=== PATIENT | female | born 1970 | race Caucasian/White ===

== ENCOUNTER → 2016-12-03 | Day surgery (SDC) | payer OTHER ==
[~2016-12-03] MED LIST: ALPR2TAB2 PO; IV RINGERS,LACTATED 1000ML 1,000 ML IV ONE; LIDOCAINE 2% PF Vial for OR 5 ML VIAL. ONE; OXCA150T3 PO; PANT40TA3 PO; PROPOFOL 20 ML IV ONE; PROPOFOL 60 ML IV ONE; ZOLP10TA PO
[2016-12-03 09:38] LABS: NEG OBC UR NEG; POS OBC UR POS
[2016-12-03 11:00] VITALS: BP 135/68
--- NOTE | 2016-12-04 12:47 | CONS ---
DATE OF CONSULTATION: 12/03/2016 HISTORY OF PRESENT ILLNESS: A 46-year-old female with past medical history significant for hepatitis C as well as chronic heartburn and a history of colonic polyps with her parents, is seen for worsening heartburn and dysphagia, solids stuck in substernal location. She is also noted to have some change in bowel habits with alternating diarrhea and constipation. There has been no melena and no hematochezia. Weight and appetite have been stable. Family history is positive for colon polyps with both parents. PAST MEDICAL HISTORY: Significant for reflux, anxiety, COPD, hepatitis C. ALLERGIES: ASPIRIN. MEDICATIONS: Include Xanax, Trileptal, Protonix, and Ambien. PAST SURGICAL HISTORY: She has had breast surgery. FAMILY HISTORY: Significant for colon polyps with her parents. REVIEW OF SYSTEMS: As per old records. PHYSICAL EXAMINATION: GENERAL: Reveals a well-nourished, well-developed female. VITAL SIGNS: Temperature is 97.8, pulse is 82, respiratory rate 22. HEENT: Normocephalic and atraumatic. Pupils and extraocular muscles not tested. Sclerae anicteric. NECK: Supple. LUNGS: Clear. CARDIOVASCULAR: Reveals S1, S2 without S3, S4 or appreciable murmur. ABDOMEN: Reveals a soft abdomen, normal bowel sounds without appreciable hepatosplenomegaly. EXTREMITIES: Reveal no cyanosis, clubbing or edema. IMPRESSION: 1. Heartburn with dysphagia. Differential includes malignancy, Schatzki's ring, achalasia, Barclay's without a stricture; therefore, we recommended upper endoscopy, possible biopsy and dilatation. 2. History of colon polyps. Colorectal screening is warranted at this time. Risks and benefits have been discussed previously with the patient and she is willing to proceed. DMITRY MARTINEZ MD DR: MERLYN/luis m JOB#: [id number] / [id number]
--- NOTE | 2016-12-06 13:47 | PATHOLOGY ---
PATHOLOGY REPORT * * * * * * * * FINAL DIAGNOSIS: Esophagus, distal, biopsy: - Superficial portions of unremarkable squamous epithelium. - No columnar epithelium present. (SKM:savannah; 12/06/2016) REPORT ELECTRONICALLY SIGNED BY: Fabian Jerez M.D. DATE/TIME: 12/06/2016 13:47 * * * * * * * * GROSS PATHOLOGY: Received in formalin labeled "Chica Ballard distal esophagus," are 3 segments of byrne soft tissue measuring 1.3 x 0.5 x 0.4 cm in aggregate dimensions and ranging from 0.3 to 0.5 cm in maximum dimension. The specimen is submitted entirely in cassette A1. (TSD; 12/03/2016) INITIAL CPT CODE(S): A; 56642 Professional services performed [place] [address] Technical services performed by [facility] at [address] [place] [address]. SPECIMEN(S) RECEIVED: A.Distal esophagus CLINICAL HISTORY: GERD, history of polyps; reflux esophagitis, r/o Barclay's PATIENT: CHICA BALLARD /AGE: 4 1970 (Age: 46) PATIENT #: [id number] ALT CASE #: SPECIMEN COLLECTION DATE: 12/03/2016 SPECIMEN RECEIVED DATE: 12/03/2016 [facility] - [address] [place] [address] - PHONE: [phone] * * * END OF REPORT * * *
== END | disposition home or self-care (01) ==
LOC: ENDOS 09:00
PROVIDERS: ATTEND Internal Medicine Gastroenterology
DX: Z09 Encounter for follow-up examination after completed treatment for conditions other than malignant neoplasm (principal); Z86.010 Personal history of colon polyps; K64.0 First degree hemorrhoids; K57.30 Diverticulosis of large intestine without perforation or abscess without bleeding; K22.2 Esophageal obstruction; K21.0 Gastro-esophageal reflux disease with esophagitis; J44.9 Chronic obstructive pulmonary disease, unspecified; M19.91 Primary osteoarthritis, unspecified site; F41.9 Anxiety disorder, unspecified; I10 Essential (primary) hypertension; Z87.39 Personal history of other diseases of the musculoskeletal system and connective tissue; Z72.0 Tobacco use; Z88.6 Allergy status to analgesic agent
CPT/HCPCS: 43239; 43450; 45378; 81025; 88305; J2704; J2001

== ENCOUNTER → 2017-02-09 | Outpatient (CLI) | payer OTHER ==
[2016-12-03 11:00] VITALS: BP 135/68
[~2017-02-09] MED LIST changes: -IV RINGERS,LACTATED 1000ML 1,000 ML IV ONE; -LIDOCAINE 2% PF Vial for OR 5 ML VIAL. ONE; -PROPOFOL 20 ML IV ONE; -PROPOFOL 60 ML IV ONE
--- NOTE | 2017-02-09 15:38 | KCIC ---
MRI of the cervical spine without contrast 02/09/2017 CLINICAL HISTORY: Chronic neck pain which radiates down both arms. Bilateral arm numbness. TECHNIQUE: Unenhanced T1-weighted, T2-weighted and inversion recovery sagittal and gradient echo and T2-weighted axial images of the cervical spine were obtained. FINDINGS: Very mild lateral curvature of the cervical spine is seen convex to the left. There is slight reversal of the normal cervical lordosis. Degenerative signal changes are seen involving all of the disks of the cervical spine. Degenerative signal changes are seen within the marrow surrounding these discs. Loss of height of the C3-4 and C5-6 discs is noted. The cervical spinal cord is normal morphology, position, and signal characteristics. On the axial images degenerative changes are seen consisting of minimal to mild generalized disc bulges and degenerative changes involving the uncovertebral and facet joints. These findings do not result in significant central spinal canal or neural foraminal stenosis at any level. IMPRESSION: Degenerative changes are seen involving the cervical spine. These findings do not result in significant central spinal canal or neural foraminal stenosis at any level. Electronically signed by: Kyler Carrillo MD (02/09/2017 3:35 PM) [facility]-KCIC1
== END | disposition home or self-care (01) ==
LOC: KCIC MRI 13:01
PROVIDERS: ATTEND Nurse Practitioner Gerontology
DX: M50.30 Other cervical disc degeneration, unspecified cervical region (principal); M40.40 Postural lordosis, site unspecified
CPT/HCPCS: 72141

== ENCOUNTER → 2017-02-09 | Outpatient (CLI) | payer OTHER ==
[2016-12-03 11:00] VITALS: BP 135/68
--- NOTE | 2017-02-09 15:08 | KCIC ---
DATE: 02/09/2017 EXAM: MAMMO BRITTNY SCREENING BILATERAL HISTORY: Routine screening COMPARISON: None available this is dictated as a baseline exam This study was interpreted with the benefit of Computerized Aided Detection (CAD). FINDINGS: Breast Density: HETERO The breast parenchyma Is heterogeneouslyy dense, which could reduce sensitivity of mammography. Breast parenchyma level C. There are no dominant suspicious masses, suspicious microcalcifications or evidence of architectural distortion. Bilateral breast prosthesis appear intact. Bilateral intramammary lymph node identified. Prior right breast breast biopsy clip marker identified. IMPRESSION: Benign findings. BI-RADS CATEGORY: 2 BENIGN FINDING RECOMMENDED FOLLOW-UP: 12M 12 MONTH FOLLOW-UP PQRS compliance statement: Patient information was entered into a reminder system with a target due date 02/09/2018 for the next mammogram. Mammography is a sensitive method for finding small breast cancers, but it does not detect them all and is not a substitute for careful clinical examination. A negative mammogram does not negate a clinically suspicious finding and should not result in delay in biopsying a clinically suspicious abnormality. "Our facility is accredited by the [employer] Mammography Program."
== END | disposition home or self-care (01) ==
LOC: KCIC MAMMO 13:48
PROVIDERS: ATTEND Family Medicine
DX: Z12.31 Encounter for screening mammogram for malignant neoplasm of breast (principal)
CPT/HCPCS: 77063; G0202; 77067

== ENCOUNTER → 2017-04-07 | Outpatient (CLI) | payer OTHER | END | disposition home or self-care (01) | LOC: US 09:57 | DX: E04.1 Nontoxic single thyroid nodule (principal) | CPT/HCPCS: 76536 ==

== ENCOUNTER 2018-07-03 13:08 | Emergency (ER) | payer OTHER ==
[~2018-07-03] VITALS: Ht 162.6 cm; Wt 82.6 kg
[2018-07-03] MEDS ORDERED: HYDROcodone/APAP 5/325MG 1 TAB TABLET PO ONE (14:00)
[2018-07-03 14:04] VITALS: BP 176/92
[2018-07-03] MEDS ORDERED: ONDANSETRON ODT 4 MG TAB.RAPDIS. PO ONE (14:15)
--- NOTE | 2018-07-03 14:17 | RAD ---
PA view chest x-ray and 4 view right rib detail series INDICATIONS: Fall 3 days ago with right-sided rib pain. FINDINGS: No acute right rib fracture is evident. No acute lung infiltrate or pleural effusion or pulmonary edema or pneumothorax is seen. The heart size and pulmonary vasculature and mediastinum and both chani are unremarkable. IMPRESSION: No acute right rib fracture. Electronically signed by: Darrion Villalba MD (07/03/2018 2:13 PM) [id number]
[2018-07-03] MEDS ORDERED: HYDR-3164 PO (14:34)
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
== END 2018-07-03 15:01 | disposition home or self-care (01) ==
LOC: ER 13:08
DX: S20.211A Contusion of right front wall of thorax, initial encounter (principal); Z88.6 Allergy status to analgesic agent; W18.39XA Other fall on same level, initial encounter; Y93.89 Activity, other specified; Y92.89 Other specified places as the place of occurrence of the external cause; Y99.8 Other external cause status
CPT/HCPCS: 71101; 99284; Q0162

== ENCOUNTER → 2018-08-29 | Outpatient (CLI) | payer OTHER ==
[~2018-08-29] MED LIST changes: +ALPR0.254 PO; +ATOR20TA58 PO; +BUDE10.2 IH; +DIVA500T2 PO; +ESTR1TAB15 PO; +ESZO3TAB28 PO; +HYDR-2769 PO; +HYDR-3164 PO; +LANS30CA PO; +LIDOCAINE 1% Multi-Dose 20 ML VIAL. ID ONE; -PANT40TA3 PO; +PANT40TA77 PO; +TIOT18CA IH; +VENTOLIN HFA18 GM INH; +methylPREDNISolone ACETATE 40 MG/ML VIAL. INT ART ONE
--- NOTE | 2018-08-29 16:52 | KCIC ---
Examination: Bilateral first carpometacarpal joint steroid injection History: Bilateral thumb pain COMPARISON: None available Technique:. Patient was brought to fluoroscopy suite. Patient was explained the procedure. Informed consent was obtained after explaining the risks and benefits to the patient. The region was marked. Local anesthesia was used 1% lidocaine. A 25-gauge needle was advanced into the carpometacarpal joint under fluoroscopic guidance. A 1 cc mixture of 0.5 cc of Depo-Medrol and 0.5 cc of lidocaine was injected in the bilateral first carpometacarpal joints. The needle was removed. No immediate complications. IMPRESSION: 1. Successful bilateral carpometacarpal joint injections. Patient stated significant improvement in pain after injections. Right hand 82 seconds of fluoroscopy. Left hand 45 seconds of fluoroscopy. Electronically signed by: Valdemar Daniels MD (08/29/2018 4:49 PM) [facility]-KCIC2
== END ==
LOC: KCIC 12:12
PROVIDERS: ATTEND Orthopaedic Surgery Sports Medicine
DX: M79.645 Pain in left finger(s) (principal); M79.644 Pain in right finger(s)
CPT/HCPCS: 20600; 77002; J1030; 20605

== ENCOUNTER → 2018-09-05 | Outpatient (CLI) | payer OTHER ==
[~2018-09-05] MED LIST changes: -LIDOCAINE 1% Multi-Dose 20 ML VIAL. ID ONE; -methylPREDNISolone ACETATE 40 MG/ML VIAL. INT ART ONE
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
== END | disposition home or self-care (01) ==
LOC: PNCL 10:39
PROVIDERS: ATTEND Anesthesiology
DX: M54.5 Low back pain (principal); M79.605 Pain in left leg; M79.604 Pain in right leg; M54.2 Cervicalgia; J44.9 Chronic obstructive pulmonary disease, unspecified; M19.90 Unspecified osteoarthritis, unspecified site; Z88.8 Allergy status to other drugs, medicaments and biological substances; Z87.891 Personal history of nicotine dependence
CPT/HCPCS: G0463

== ENCOUNTER → 2018-09-27 | Outpatient (CLI) | payer OTHER ==
[~2018-09-27] MED LIST changes: +IOHEXOL 180 MG/ML 10 ML VIAL. ONE; +methylPREDNISolone ACETATE 40 MG/ML VIAL. ONE; +methylPREDNISolone ACETATE 80 MG/ML VIAL. ONE
--- NOTE | 2018-09-28 07:24 | PAIN ---
DATE OF SERVICE: 09/27/2018 PROGRESS NOTE FOR PAIN CLINIC DIAGNOSES: 1. Lumbar radiculopathy with lumbar degenerative disk disease. 2. Cervical radiculopathy with cervical degenerative disk disease. HISTORY OF PRESENT ILLNESS: The patient is a 48-year-old female who returns for followup status post initial evaluation and MRIs of both the cervical and lumbar spines. The patient's cervical spine showing cervical bulges without spinal stenosis or nerve root compression with most significant at C5-C6 with a slight encroachment upon the right neural foramen. Lumbar spine shows left L4-L5 neural foramen narrowing in the effect of left L4 nerve root, less severe neural foramen narrowing is seen at the levels with osteoarthritis in the facets at L4-L5 and L5-S1, lesser extent at L3-L4. The patient returns reporting still significant pain, base of the neck, right upper extremity as well as the low back and right lower extremity, mostly in the posterior gluteus, posterior thigh, lateral thigh on the right and into the shoulder and arm, upper arm, mid arm, forearm and into the thumb and first fingers on the right hand. The patient reports her main complaint is low back and the right leg pain as aching, sharp, stabbing, becoming more constant and severe, worse with walking, standing, changing positions. The right arm and upper extremities still painful, but less limiting in her daily activities than the low back. The patient reports it awakens her from sleep at least 2-3 times a night. She needs to reposition to get back to sleep. It has been rated as a 10 on a scale of 10 at its worst over the past week, 9 on average, it is a 9 today. The patient reports no new motor or sensory deficits. No new bowel or bladder incontinence or other complaints. PHYSICAL EXAMINATION: VITAL SIGNS: The patient's blood pressure 150/96, pulse 84, respirations 18, temperature is 98.2 degrees Fahrenheit, height is 5 feet 4 inches, weight is 233 pounds. GENERAL: The patient is awake, alert, oriented, appropriate, very pleasant demeanor. HEENT: Head shows normocephalic, atraumatic. Extraocular movements are intact and symmetrical. Oral cavity, mucous membranes are moist and pink. Dentition is intact. NECK: Shows anterior throat supple without palpable lymphadenopathy noted. Swallow reflex symmetrical. CHEST: Shows normal with inspection. Breath sounds clear to auscultation bilaterally. HEART: Shows S1, S2 clear. No murmurs auscultated. ABDOMEN: Soft, nontender, nondistended. No palpable organomegaly is noted. BACK: Shows spine grossly in the midline. Cervical paraspinous muscle shows symmetrical on inspection, with palpation some moderate tenderness diffusely in the right superior trapezius and inferior cervical paraspinous musculature. The patient has full rotational motion of the cervical spine without significant difficulty. The patient's low back shows lumbar paraspinous muscles are symmetrical, with palpation shows some moderate tenderness diffusely bilaterally, but only diffusely without significant radiation. The patient has good rotational motion both laterally as well as extension and flexion. EXTREMITIES: Lower extremities show deep tendon reflexes at 1+ in the patellar and tendo-calcaneus tendons. Motor exam is approximately 4 on a scale of 5, but equal and symmetrical bilaterally. Upper extremities show deep tendon reflexes 2+ in the biceps, triceps tendons. 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 Peripheral pulses are 1+ posterior tibial, 2+ radial. No peripheral edema is noted in any of the extremities. Options were discussed with the patient. The patient's old chart was reviewed. Her current medication regimen updated. Current review of systems is updated today as well. We will proceed with a lumbar epidural steroid injection today with fluoroscopic guidance. Risks were again discussed including, but not limited to bleeding, infection, possibility of epidural hematoma, subsequent neurologic compromise, dural puncture, headaches, spinal cord and/or nerve damage, side effects of steroid medication and poor results regarding pain control. The patient understands and wished to proceed. The patient will return to clinic in approximately 2 weeks for followup, was counseled on return appointment, activity level and side effects to be aware of. DIAGNOSIS: Lumbar radiculopathy with lumbar degenerative disk disease. PROCEDURE: Lumbar epidural steroid injection, translaminar approach at the L4-L5 level using C-arm fluoroscopic guidance under sterile prep and drape using local anesthetic. MEDICATION INJECTED: A total of 120 mg Depo-Medrol plus 10 mL of preservative-free normal saline and 2 mL of contrast. CONDITION AT DISCHARGE: Stable. The patient tolerated the procedure well, had no complications. GINO CACERES MD DR: FRANKLIN/luis m JOB#: [id number] / [id number]
== END ==
LOC: PNCL 14:39
PROVIDERS: ATTEND Anesthesiology
DX: M51.16 Intervertebral disc disorders with radiculopathy, lumbar region (principal); M50.10 Cervical disc disorder with radiculopathy, unspecified cervical region
CPT/HCPCS: 62323; J1030; J1040; Q9965

== ENCOUNTER → 2018-10-16 | Outpatient (CLI) | payer OTHER ==
--- NOTE | 2018-10-17 04:14 | PAIN ---
DATE OF SERVICE: 10/16/2018 PROGRESS NOTE FOR PAIN CLINIC DIAGNOSES: 1. Lumbar radiculopathy with lumbar degenerative disk disease. 2. Cervical radiculopathy with cervical degenerative disk disease. HISTORY OF PRESENT ILLNESS: The patient is a 48-year-old female who returns for followup status post lumbar epidural steroid injection x 1. The patient reports about 50% improvement in her low back and leg pain. Her main complaint now is neck and shoulder pain, upper back pain as well, more on the right arm. The patient reports there is tingling in the right arm with radiating pain rated at 10 on a scale of 10 at its worst, 8 on an average, 7 at its least and is a 7 today. The patient reports it is an aching pain and sharp and tingling, becoming more constant and, more severe. Her low back is doing much better. She has been increasing her activities with greater distance walking, doing household activities with greater ease and comfort, traveling with greater ease, but her upper back and neck is becoming more painful. The patient reports no new motor or sensory deficits, no new bowel or bladder incontinence or other complaints. Also, complains of some knee pain. She does have some new MRI scans of both of her knees and we reviewed with her today as well. PHYSICAL EXAMINATION: VITAL SIGNS: The patient's blood pressure is 143/103, pulse 80, respirations 16, temperature 98.5 degrees Fahrenheit and weight is 231 pounds. GENERAL: The patient is awake, alert, oriented, appropriate, very pleasant demeanor. HEENT: Shows normocephalic, atraumatic. Extraocular movements are intact and symmetrical. Oral cavity: Mucous membranes moist and pink. Dentition is intact. NECK: Shows anterior throat supple without palpable lymphadenopathy noted. Swallow reflex symmetrical. CHEST: Shows normal on inspection. Breath sounds are clear to auscultation bilaterally. HEART: Shows S1, S2 clear. No murmurs auscultated. ABDOMEN: Soft, nontender and nondistended. No palpable organomegaly is noted. No rebound or guarding demonstrated. BACK: Shows spine grossly in the midline. Normal appearing thoracic kyphosis, some minor flattening of cervical lordotic curvature and lumbar lordotic curvature. Cervical paraspinous muscle shows symmetrical on inspection, on palpation shows some moderate tenderness diffusely bilaterally, but only diffusely without radiation. The patient's neck shows good rotational motion of cervical spine, both laterally as well as extension and flexion without significant increase in pain. EXTREMITIES: Upper extremities showed deep tendon reflexes 2+ in the biceps and triceps tendons. Motor exam is approximately 4 on a scale of 5 with equal wedger machine strength of biceps and triceps flexion. Peripheral pulses are 2+, radial distribution. No peripheral edema is noted. Options were discussed with the patient. The patient's old chart was reviewed as her current medication regimen updated. Current review of systems updated today as well. We will proceed with a cervical epidural steroid injection today with fluoroscopic guidance. Risks were again discussed including but not limited to bleeding, infection, possibility of epidural hematoma, subsequent neurologic compromise, dural puncture, headaches, spinal cord and/or nerve damage, side effects of steroid medication and poor results regarding pain control. The patient understands and wished to proceed. She will return to clinic in approximately 2 weeks for followup, was counseled on return appointment, activity level and side effects to be aware of. DIAGNOSIS: Cervical radiculopathy with cervical degenerative disk disease. PROCEDURE: Cervical epidural steroid injection, translaminar approach, C6-C7 level, using C-arm fluoroscopic guidance under sterile prep and drape using local anesthetic. MEDICATION INJECTED: A total of 120 mg of Depo-Medrol plus 5 mL of preservative-free normal saline and 2 mL of contrast. CONDITION AT DISCHARGE: Stable. The patient tolerated the procedure well, had no complications. GINO CACERES MD DR: FRANKLIN/luis m JOB#: [id number] / [id number]
== END ==
LOC: PNCL 13:23
PROVIDERS: ATTEND Anesthesiology
DX: M50.123 Cervical disc disorder at C6-C7 level with radiculopathy (principal); M51.16 Intervertebral disc disorders with radiculopathy, lumbar region
CPT/HCPCS: 62321; J1030; J1040; Q9965

== ENCOUNTER → 2018-11-02 | Outpatient (CLI) | payer OTHER ==
--- NOTE | 2018-11-03 00:56 | PAIN ---
DATE OF SERVICE: 11/02/2018 PROGRESS NOTE FOR PAIN CLINIC DIAGNOSES: 1. Lumbar radiculopathy with lumbar degenerative disk disease. 2. Cervical with radiculopathy with cervical degenerative disk disease. HISTORY OF PRESENT ILLNESS: The patient is a 48-year-old female who returns for followup status post cervical epidural steroid injection x 1 and lumbar epidural steroid injection x 1. The patient reports about 50% improvement after lumbar injection, but no improvement after cervical injection. The patient reports still significant pain and her chief complaint is her low back pain today, which is radiating to bilateral posterior lateral gluteus, lateral thighs, lateral anterior medial thighs and the knees. The patient reports it is aching, sharp, shooting, cramping, stabbing, radiating, becoming more constant, more severe and more unbearable. The patient reports it is a 10 on a scale of 10 at its worst, 10 on average and 9 at its least and is a 10 today. The patient reports no new motor or sensory deficits, no new bowel or bladder incontinence or other complaints. The patient reports it awakens him from sleep about every 1-2 hours, has to reposition. She has been taking the pain medication as well. The patient reports no new motor or sensory deficits, no bowel or bladder incontinence or other complaints. PHYSICAL EXAMINATION: VITAL SIGNS: The patient's blood pressure 140/97, pulse 90, respirations 18, temperature 98.4 degrees Fahrenheit, height is 5 feet 4 inches, weight is 237 pounds. GENERAL: The patient is awake, alert, oriented, appropriate, very pleasant demeanor. HEENT: Shows normocephalic, atraumatic. Extraocular movements are intact and symmetrical. Oral cavity: Mucous membranes moist and pink. Dentition is intact. NECK: Shows anterior throat supple without palpable lymphadenopathy noted. Swallow reflex symmetrical. CHEST: Shows normal on inspection. Breath sounds clear to auscultation bilaterally. HEART: Shows S1, S2 clear. No murmurs auscultated. ABDOMEN: Soft, nontender, nondistended. No palpable organomegaly is noted. No rebound or guarding demonstrated. BACK: Shows spine grossly in the midline. The patient's lumbar paraspinous muscle shows symmetrical on inspection, on palpation shows some moderate tenderness diffusely in the middle and lower distribution of paraspinous muscles, also into the lower thoracic paraspinous musculature with fairly significant tenderness bilaterally. The patient shows some tenderness with rotational motion both laterally as well as extension and flexion in all rotations. EXTREMITIES: The patient's lower extremities show deep tendon reflexes at 2+ in the patellar, 1+ tendo-calcaneus tendons. Motor exam is approximately 4 on a scale of 5, but equal and symmetrical dorsiflexion, extension, quadriceps and hamstring flexion. Options were discussed with the patient. The patient's old chart was reviewed as her current medication regimen updated. Current review of systems updated today as well. We will proceed with a second lumbar epidural steroid injection today with fluoroscopic guidance. Risks were again discussed including, but not limited to bleeding, infection, possibility of epidural hematoma, subsequent neurological compromise, dural puncture, headaches, spinal cord and/or nerve damage, side effects of steroid medication and poor results regarding pain control. The patient understands and wished to proceed. The patient will return to clinic in approximately 2 weeks for followup. She was counseled on return appointment, activity level and side effects to be aware of. DIAGNOSIS: Lumbar radiculopathy with lumbar degenerative disk disease. PROCEDURE: Lumbar epidural steroid injection, translaminar approach at L4-L5 level using C-arm fluoroscopic guidance under sterile prep and drape using local anesthetic. MEDICATION INJECTED: The patient received a total of 120 mg Depo-Medrol plus 10 mL of preservative-free normal saline and 2 mL of contrast. CONDITION AT DISCHARGE: Stable. The patient tolerated the procedure well, had no complications. GINO CACERES MD DR: FRANKLIN/luis m JOB#: [id number] / [id number]
== END ==
LOC: PNCL 13:59
PROVIDERS: ATTEND Anesthesiology
DX: M51.16 Intervertebral disc disorders with radiculopathy, lumbar region (principal); M50.10 Cervical disc disorder with radiculopathy, unspecified cervical region
CPT/HCPCS: 62323; J1030; J1040; Q9965

== ENCOUNTER → 2018-11-22 | Outpatient (CLI) | payer OTHER ==
[~2018-11-22] MED LIST changes: +BUPIVACAINE MPF 0.25% 10 ML VIAL. ONE; -IOHEXOL 180 MG/ML 10 ML VIAL. ONE; +[UNRECOGNIZED DRUG - OTHER]; -methylPREDNISolone ACETATE 80 MG/ML VIAL. ONE
--- NOTE | 2018-11-22 23:35 | PAIN ---
DATE OF SERVICE: 11/22/2018 PROGRESS NOTE FOR PAIN CLINIC DIAGNOSES: 1. Lumbar radiculopathy with lumbar degenerative disk disease. 2. Cervical radiculopathy with cervical degenerative disk disease. 3. Myofascial pain. HISTORY OF PRESENT ILLNESS: The patient is a 48-year-old female who returns for followup status post lumbar epidural steroid injection x 2 and cervical epidural steroid injection x 1. The patient reports no significant decrease in pain with any of the injections overall. About 50% improvement initially, but now with still significant pain in the base of the neck, shoulders, upper back, mid back, low back, bilateral lower extremities, bilateral upper extremities, right greater than left, right and left. The patient reports significant pain in the right knee with findings of significant osteoarthritis and tricompartmental osteoarthritis of both knees. The patient reports that her orthopedic surgeon has recommended a right total knee replacement, but would like to try hyaluronidase or Hyalgan injections first. We will make those arrangements and get the medication available for her and proceed with that on another visit today. Today, the patient reports significant pain and spasticity, tightness in the back of the neck, upper back, shoulders, arms, low back, mid back, awaken her from sleep about every 3-4 hours. The patient describes the pain as aching, sharp, tight, tingling, cramping, radiating, becoming severe, unbearable and constant. The patient reports the pain is 10 on a scale of 10 at its worst, 10 on average and 9 at its least and is a 10 today. PHYSICAL EXAMINATION: VITAL SIGNS: The patient's blood pressure 155/102, pulse 93, respirations 16, temperature 98.0 degrees Fahrenheit, weight is 248 pounds. GENERAL: The patient is awake, alert, oriented, appropriate, very pleasant demeanor. HEENT: Head is normocephalic, atraumatic. Extraocular movements are intact and symmetrical. Oral cavity: Mucous membranes moist and pink. Dentition is intact. NECK: Shows anterior throat supple without palpable lymphadenopathy noted. Swallow reflex symmetrical. CHEST: Shows normal on inspection. Breath sounds clear to auscultation bilaterally. HEART: Shows S1, S2 clear. No murmurs auscultated. ABDOMEN: Soft, nontender, nondistended, obese. BACK: Shows spine grossly in the midline. With palpation, significant tenderness in the inferior cervical paraspinous musculature is very firm rope-like musculature consistent with trigger point areas of muscle. This is true into the trapezius musculature as well as the thoracic paraspinous musculature significantly more on the right than the left and in the superior aspect of the thoracic paraspinous muscles, also in the lumbar paraspinous muscles throughout the upper, middle and lower distribution of paraspinous musculature, more on the right side in the low back in the low lumbar distribution with very firm rope-like musculature consistent with trigger point areas of muscle without specific radiation. PLAN: Options were discussed with the patient. The patient's old chart was reviewed as her current medication regimen updated. Current review of systems updated today as well. We will proceed with trigger point injections of the identified musculature. Risks were discussed including but not limited to bleeding, infection, possibility of intravascular injection sequelae, spread of local anesthetic and numbness, pneumothorax, side effects of steroid medication and poor results regarding pain control. The patient understands and wished to proceed. The patient will return to clinic in approximately 2 weeks for followup. She was counseled on return appointment, activity level and side effects to be aware of. Again, we will have Hyalgan ordered via pharmacy for intra-articular knee injections on her followup visit per orthopedic request. DIAGNOSIS: Myofascial pain. PROCEDURE: Trigger point injections, bilateral cervical paraspinous musculature, bilateral trapezius musculature, bilateral thoracic paraspinous musculature and bilateral lumbar paraspinous musculature under sterile prep and drape using local anesthetic. MEDICATION INJECTED: The patient received a total of 11 mL of 0.25% bupivacaine and 40 mg total Depo-Medrol after negative aspiration at each injection site. CONDITION AT DISCHARGE: Stable. The patient tolerated procedure well, had no complications. GINO CACERES MD DR: FRANKLIN/luis m JOB#: [id number] / [id number]
== END ==
LOC: PNCL 14:03
PROVIDERS: ATTEND Anesthesiology
DX: M79.18 Myalgia, other site (principal); M51.16 Intervertebral disc disorders with radiculopathy, lumbar region; M50.10 Cervical disc disorder with radiculopathy, unspecified cervical region
CPT/HCPCS: 20553; J1030; J3490

== ENCOUNTER → 2018-12-07 | Outpatient (CLI) | payer OTHER ==
[~2018-12-07] MED LIST changes: -BUPIVACAINE MPF 0.25% 10 ML VIAL. ONE; +IOHEXOL 180 MG/ML 10 ML VIAL. ONE; -methylPREDNISolone ACETATE 40 MG/ML VIAL. ONE
--- NOTE | 2018-12-07 19:57 | PAIN ---
DATE OF SERVICE: 12/07/2018 PROGRESS NOTE FOR PAIN CLINIC DIAGNOSES: 1. Lumbar radiculopathy with lumbar degenerative disk disease, lumbar spondylosis. 2. Cervical radiculopathy with cervical degenerative disk disease. 3. Myofascial pain. 4. Bilateral knee joint pain with primary osteoarthritis. HISTORY OF PRESENT ILLNESS: The patient is a 48-year-old female who returns for followup status post lumbar epidural steroid injection as well as trigger point injections for the low back, all of which have been only temporary helpful for about 40-50%. The patient reports she has some swelling after the last injection in her legs that lasted about a week, but it resolved on its own. The patient reports that she had to leave town as her father last week, which puts increased stress on her back with traveling as well as her legs and knees. The patient reports her knees are her primary complaint as well as the low back with significant pain with weightbearing, walking, standing, changing positions, especially getting up from a seated position. The patient reports the pain is 10 on a scale of 10 at its worst, on average and at its least over the past week and is a 10 today. The patient reports it is aching, sharp, tight, shooting in the back, cramping and stabbing, constant, severe, unbearable in the knees as well as the low back, also on the right hand. The patient reports no new motor or sensory deficits, no new bowel or bladder incontinence. The patient has not started water therapy yet. We will reorder that for her today as well. PHYSICAL EXAMINATION: VITAL SIGNS: The patient's blood pressure 155/104, pulse 91, respirations are 20, temperature is 98.2 degrees Fahrenheit, height is 5 feet 4 inches, weight is 249 pounds. GENERAL: The patient is awake, alert, oriented, appropriate, very pleasant demeanor. HEENT: Shows normocephalic, atraumatic. Extraocular movements are intact and symmetrical. Oral cavity, mucous membranes are moist and pink. Dentition is intact. NECK: Shows anterior throat supple without palpable lymphadenopathy noted. Swallow reflex symmetrical. CHEST: Shows normal on inspection. Breath sounds are clear to auscultation bilaterally. HEART: Shows S1, S2 clear. No murmurs auscultated. ABDOMEN: Obese, soft, nontender, nondistended. BACK: Shows spine grossly in the midline. Normal appearing thoracic kyphosis, some flattening of lumbar lordotic curvature. Lumbar paraspinous muscle shows symmetrical on inspection. Significant tenderness, moderate to severely throughout the upper, middle and lower distribution of paraspinous muscles with palpation bilaterally. The patient shows good rotational motion of lumbar spine with pain with extension and axial loading of the lumbar spine as well as with right and left lateral rotation, but greater than 10 degrees. EXTREMITIES: The patient's lower extremities show deep tendon reflexes at 1+ in the patellar and tendo calcaneus tendons. Motor exam is strong with 5/5 dorsiflexion, extension, quadriceps and hamstring flexion and symmetrical. Peripheral pulses are 1+ posterior tibia. No peripheral edema is noted bilaterally. Options were discussed with the patient. The patient's old chart was reviewed as her current medication regimen updated. Current review of systems updated today as well. We will proceed with bilateral Synvisc injections to bilateral knees. Risks were discussed including but not limited to bleeding, infection, possibility of spread of local anesthetic, extravasation of Synvisc as well as exposure to fluoroscopy and poor results regarding pain control. The patient understands and wished to proceed. The patient will return to clinic in approximately 1 week. We will plan on lumbar facet joint injections at that time. Secondary complaint today besides her knee pain is low back pain, localized to the back without radiating pain at this time. Also, reorder the patient's water therapy, which we discussed again. She may benefit most significantly with all modalities we have tried or may try. The patient understands and agrees. DIAGNOSIS: Primary osteoarthritis, bilateral knees with knee joint pain bilaterally. PROCEDURE: Bilateral knee joint injections, Synvisc single shot injections bilaterally under sterile prep and drape using local anesthetic using C-arm fluoroscopic guidance. MEDICATION INJECTED: 6 mL of Synvisc single shot injection per knee with total of 3 mL of contrast. CONDITION AT DISCHARGE: Stable. The patient tolerated the procedure well, had no complications. GINO CACERES MD DR: FRANKLIN/luis m JOB#: [id number] / [id number]
== END | disposition home or self-care (01) ==
LOC: PNCL 14:03
PROVIDERS: ATTEND Anesthesiology
DX: M17.0 Bilateral primary osteoarthritis of knee (principal); M51.16 Intervertebral disc disorders with radiculopathy, lumbar region; M50.10 Cervical disc disorder with radiculopathy, unspecified cervical region; M79.18 Myalgia, other site; Z88.6 Allergy status to analgesic agent; Z88.8 Allergy status to other drugs, medicaments and biological substances
CPT/HCPCS: 20610; 77002; Q9965

== ENCOUNTER → 2018-12-14 | Outpatient (CLI) | payer OTHER ==
[~2018-12-14] MED LIST changes: +BUPIVACAINE MPF 0.25% 10 ML VIAL. ONE; +methylPREDNISolone ACETATE 40 MG/ML VIAL. ONE; +methylPREDNISolone ACETATE 80 MG/ML VIAL. ONE
--- NOTE | 2018-12-14 09:20 | PAIN ---
DATE OF SERVICE: 12/14/2018 PROGRESS NOTE FOR PAIN CLINIC DIAGNOSES: 1. Lumbar radiculopathy with lumbar degenerative disk disease and lumbar and lumbosacral spondylosis. 2. Cervical radiculopathy with cervical degenerative disk disease. 3. Myofascial pain. 4. Bilateral knee joint pain with osteoarthritis. HISTORY OF PRESENT ILLNESS: The patient is a 48-year-old female who returns for followup status post bilateral knee joint injections with Synvisc. The patient reports left knee is doing much better, about 50%. The right knee is still significantly painful. The patient reports her main complaint, however, is low back pain. We discussed this on her last visit and planned for lumbar facet joint injections today. The patient would like to proceed with that, still significant pain in the low back, described as aching, burning, cramping, stabbing, sharp, aching, tight and shooting, severe with weightbearing. The patient reports it is a 10+ on average and at its worst 0-10 in the past week, 8 at its least and is a 10 today. The patient reports no new motor or sensory deficits, no new changes. PHYSICAL EXAMINATION: VITAL SIGNS: The patient's blood pressure is 141/101, pulse 90, respirations 16, temperature 98.2 degrees Fahrenheit, height is 5 feet 4 inches and weight is 252 pounds. GENERAL: The patient is awake, alert, oriented, appropriate, very pleasant demeanor. HEENT: Shows normocephalic, atraumatic. Extraocular movements are intact and symmetrical. Oral cavity: Mucous membranes moist and pink. Dentition is intact. NECK: Shows anterior throat supple. CHEST: Shows normal on inspection. Breath sounds clear to auscultation bilaterally. HEART: Shows S1, S2 clear. No murmurs auscultated. ABDOMEN: Soft, obese, nontender, nondistended. BACK: Shows spine grossly in the midline. Lumbar paraspinous muscle shows symmetrical on inspection. On palpation, some moderate tenderness diffusely throughout the upper, middle and lower distribution of paraspinous muscles. The patient shows significant pain with extension of the lumbar spine, however, better with forward flexion. Right and left lateral rotation about 10 degrees causes pain as well, but not to the extent of extension. EXTREMITIES: Lower extremities show deep tendon reflexes 2+ in the patellar, 1+ tendo-calcaneus tendons. Motor exam is strong with 5/5 dorsiflexion, extension, quadriceps and hamstring flexion. Peripheral pulses are 1+ posterior tibial. Options were discussed with the patient. The patient's old chart was reviewed as her current medication regimen updated. Current review of systems is updated today as well and we will proceed with a bilateral L4-L5 and L5-S1 facet joint injections today with fluoroscopic guidance. Risks were again discussed including, but not limited to bleeding, infection, possibility of epidural hematoma, subsequent neurological compromise, dural punctures, headaches, spinal cord and/or nerve damage, side effects of steroid medication and poor results regarding pain control. The patient understands and wished to proceed. The patient will return to clinic in approximately 2 weeks for followup. She was counseled on return appointment, activity level and side effects to be aware of. Also I had ordered water therapy for her to start and this will begin next week as scheduled. Encourage the patient to highly consider keeping those appointments. Also doing stretching and strengthening on her own. The patient will follow up in approximately 2 weeks as necessary. DIAGNOSIS: Lumbar and lumbosacral spondylosis. PROCEDURE: Lumbar bilateral L4-L5 and L5-S1 facet joint injections using C-arm fluoroscopic guidance under sterile prep and drape using local anesthetic. MEDICATION INJECTED: Total of 120 mg Depo-Medrol plus total of 4 mL of 0.25% bupivacaine and total of 2 mL contrast. CONDITION AT DISCHARGE: Stable. The patient tolerated the procedure well, had no complications. GINO CACERES MD DR: FRANKLIN/luis m JOB#: [id number] / [id number]
== END ==
LOC: PNCL 07:39
PROVIDERS: ATTEND Anesthesiology
DX: M51.16 Intervertebral disc disorders with radiculopathy, lumbar region (principal); M47.817 Spondylosis without myelopathy or radiculopathy, lumbosacral region; M50.10 Cervical disc disorder with radiculopathy, unspecified cervical region; M79.18 Myalgia, other site; M17.0 Bilateral primary osteoarthritis of knee
CPT/HCPCS: 64493; 64494; J1030; J1040; J3490; Q9965

== ENCOUNTER → 2019-01-23 | Outpatient (CLI) | payer MEDICAID ==
[~2019-01-23] MED LIST changes: -BUPIVACAINE MPF 0.25% 10 ML VIAL. ONE; -IOHEXOL 180 MG/ML 10 ML VIAL. ONE; -methylPREDNISolone ACETATE 40 MG/ML VIAL. ONE; -methylPREDNISolone ACETATE 80 MG/ML VIAL. ONE
--- NOTE | 2019-01-23 08:29 | RAD ---
Complete abdominal ultrasound 01/23/2019 7:00 AM Clinical History: Left upper abdominal pain Technique: Ultrasound examination of the abdomen was performed, and multiple static images were submitted for review. Comparison: None Findings: The pancreas is poorly visualized. The liver is incompletely visualized. Liver is enlarged measuring 21 cm longitudinally. The liver is diffusely echogenic suggesting hepatic steatosis. The gallbladder is normal in appearance without wall thickening, stones, or sludge. No pericholecystic fluid is seen. Sonographic Aquino's sign is negative. The common bile duct measures 6 mm in diameter which is within normal limits. There is borderline splenomegaly with spleen measuring 12.6 cm longitudinally. The bilateral kidneys are normal in appearance without evidence of obstructive uropathy, nephrolithiasis, or focal renal lesion. Right kidney measures 12.1 cm in length. Left kidney measures 13.2 cm in length. Impression: 1. Hepatomegaly and hepatic steatosis 2. Borderline thyromegaly Electronically signed by: Efrain Cortez MD (01/23/2019 8:26 AM) [id number]
== END | disposition home or self-care (01) ==
LOC: US 06:55
PROVIDERS: ATTEND Nurse Practitioner Gerontology
DX: K76.0 Fatty (change of) liver, not elsewhere classified (principal); R16.1 Splenomegaly, not elsewhere classified; E01.0 Iodine-deficiency related diffuse (endemic) goiter; I25.10 Atherosclerotic heart disease of native coronary artery without angina pectoris
CPT/HCPCS: 76700

== ENCOUNTER → 2019-01-24 | Outpatient (CLI) | payer OTHER ==
[~2019-01-24] MED LIST changes: +BUPIVACAINE MPF 0.25% 10 ML VIAL. ONE; +IOHEXOL 180 MG/ML 10 ML VIAL. ONE; +methylPREDNISolone ACETATE 40 MG/ML VIAL. ONE; +methylPREDNISolone ACETATE 80 MG/ML VIAL. ONE
--- NOTE | 2019-01-24 23:34 | PAIN ---
DATE OF SERVICE: 01/24/2019 PROGRESS NOTE FOR PAIN CLINIC DIAGNOSES: 1. Lumbar radiculopathy with lumbar degenerative disk disease and lumbosacral spondylosis. 2. Cervical radiculopathy with cervical degenerative disk disease. 3. Myofascial pain. 4. Bilateral knee joint pain with osteoarthritis. HISTORY OF PRESENT ILLNESS: The patient is a 48-year-old who returns for followup status post bilateral knee joint injections with Synvisc, lumbar epidural steroid injections x 3, also lumbar facet injections x 1. Also, doing pool therapy. The patient reports her left knee is doing much better near 100% improvement after the Synvisc injection. The right knee is still painful. Her main complaint is low back pain, though worse on the left than the right, but present bilaterally. The patient reports that her facet joint injections helped to about 40% and we had talked to her on the phone last week about repeating those today. She would like to proceed with that. Also, she is requesting a folding shower seat that she can use in her shower at home to sit. We will make those arrangements for her as well. The patient reports her pain is at 10 on a scale of 10 at its worst in the past week, a 9 on average and 9 at its least and is a 9 today. The patient reports her low back is burning, cramping, stabbing, aching, sharp, tight, shooting, radiating, constant, becoming severe and unbearable with walking, standing and weightbearing. She is seeing her spine surgeon, who is ordering a new thoracic spine films and saw him yesterday, Dr. Brannon Guardado. The patient reports the pain awakens her from sleep at night about every hour. Reports no new motor or sensory deficits, no new other changes. PHYSICAL EXAMINATION: VITAL SIGNS: The patient's blood pressure is 131/99, pulse 88, respirations 18, temperature 97.8 degrees Fahrenheit, height is 5 feet 4 inches, weight is 264 pounds. GENERAL: The patient is awake, alert, oriented, and appropriate. She has very pleasant demeanor. HEENT: Shows normocephalic, atraumatic. Extraocular movements are intact and symmetrical. Oral cavity: Mucous membranes moist and pink. Dentition is intact. NECK: Shows anterior throat supple without palpable lymphadenopathy noted. Swallow reflex symmetrical. CHEST: Shows normal on inspection. Breath sounds are clear bilaterally. HEART: Shows S1, S2 clear. ABDOMEN: Obese, soft, nontender, nondistended. BACK: Shows spine grossly in the midline. Normal-appearing thoracic kyphosis and minor flattening of lumbar lordotic curvature. Lumbar paraspinous muscle shows symmetrical on inspection and palpation shows some moderate tenderness to significant tenderness bilaterally in the lumbar paraspinous muscles, worse on the left than the right, but present bilaterally. EXTREMITIES: Lower extremities show deep tendon reflexes at 2+ in the patellar, 1+ tendo-calcaneus tendons. Motor exam is strong with 5/5 dorsiflexion and extension and equal bilaterally. Peripheral pulses are 1+ posterior tibial bilaterally. Options were discussed with the patient. The patient's old chart was reviewed as her current medication regimen updated. Current review of systems updated today as well. We will proceed with repeat L4-L5 and L5-S1 facet joint injections today with fluoroscopic guidance. Risks were again discussed, including but not limited to bleeding, infection, possibility of epidural hematoma, subsequent neurological compromise, dural puncture, headaches, spinal cord and/or nerve damage, side effects of steroid medication and poor results regarding pain control. The patient understands and wished to proceed. The patient will return to the clinic in approximately 2 weeks for followup. She was counseled on return appointment, activity level and side effects to be aware of. The patient is also given prescription for methocarbamol as she reports she is looking for a new primary care physician and does not have any of her medications at this time. We will try methocarbamol. She is having some significant spasticity and tightness in the back and low back, especially in the upper back. The patient has been instructed on all side effects to be aware of with the medication. We will follow up in approximately 2 weeks as scheduled. DIAGNOSIS: Bilateral lumbar and lumbosacral spondylosis. PROCEDURE: Bilateral L4-L5 and L5-S1 facet joint injections using C-arm fluoroscopic guidance under sterile prep and drape using local anesthetic. MEDICATION INJECTED: A total of 120 mg Depo-Medrol plus total of 4 mL of 0.25% bupivacaine and total of 2 mL of contrast. CONDITION AT DISCHARGE: Stable. The patient tolerated procedure well, had no complications. GINO CACERES MD DR: FRANKLIN/luis m JOB#: [id number] / [id number]
== END ==
LOC: PNCL 11:23
PROVIDERS: ATTEND Anesthesiology
DX: M51.16 Intervertebral disc disorders with radiculopathy, lumbar region (principal); M47.817 Spondylosis without myelopathy or radiculopathy, lumbosacral region; M50.10 Cervical disc disorder with radiculopathy, unspecified cervical region; M79.18 Myalgia, other site; M17.0 Bilateral primary osteoarthritis of knee
CPT/HCPCS: 64493; 64494; J1030; J1040; J3490; Q9965

== ENCOUNTER → 2019-03-15 | Outpatient (CLI) | payer OTHER ==
[~2019-03-15] MED LIST changes: -BUPIVACAINE MPF 0.25% 10 ML VIAL. ONE; -IOHEXOL 180 MG/ML 10 ML VIAL. ONE; +METH-38 PO; -methylPREDNISolone ACETATE 40 MG/ML VIAL. ONE; -methylPREDNISolone ACETATE 80 MG/ML VIAL. ONE
--- NOTE | 2019-03-15 13:48 | PAIN ---
DATE OF SERVICE: 03/15/2019 PROGRESS NOTE FOR PAIN CLINIC DIAGNOSES: 1. Lumbar radiculopathy with lumbar degenerative disk disease and lumbar spondylosis. 2. Cervical radiculopathy with cervical degenerative disk disease. 3. Myofascial pain. 4. Bilateral knee joint pain with primary osteoarthritis. HISTORY OF PRESENT ILLNESS: The patient is a 48-year-old female who returns for followup status post bilateral facet joint injections as well as lumbar epidural steroid injections x 2, trigger point injections as well as bilateral knee joint injections with Synvisc. The patient reports that her back is still significantly painful. The shots have not helped her even for a day or 2 from any of the injections for the lumbar spine. The patient reports her main complaint, however, is her left knee, which is very tender and painful. She is having surgery on her right knee by her report, total knee replacement in April and would like the left knee treated in the meantime. The patient reports the pain is at 10 on a scale of 10 at its worst over the past week, 9 on average, 8 at its least and is a 9 today. The patient reports it is aching, sharp, tight, shooting and aching and dull in the low back, mid back, upper back, neck and shoulders as well as in the bilateral knees, significantly more on the right than the left with some stabbing, aching pain in the back, becoming more unbearable and severe. The patient reports no loss of motor function, no bowel or bladder incontinence. She has recently had a surgery on her right wrist; however, is wearing a cast on that hand. The patient reports a decrease in her ability to sleep at night secondary to the pain in the knees as well as the low back. She has seen Dr. Guardado regarding her low back and her old MRI scan from 09/2018 has the lesion in the L5 vertebral body and recommendation at that time was for whole body bone scan to rule out any possibility of metastatic disease. This has not been performed yet, although has been recommended by her report by least 2 other physicians including radiologist reading the MRI report in 09/2018. The patient reports still significant pain in the back, which is her main complaint. Secondary complaint is left knee joint pain. PHYSICAL EXAMINATION: VITAL SIGNS: The patient's blood pressure is 136/98, pulse 81, respirations 16, temperature 98.0 degrees Fahrenheit, height is 5 feet 4 inches, weight is 266 pounds. GENERAL: The patient is awake, alert, oriented, appropriate, very pleasant demeanor. HEENT: Shows normocephalic, atraumatic. Extraocular movements are intact and symmetrical. Oral cavity shows mucous membranes moist and pink. Dentition is intact. NECK: Shows anterior throat supple without palpable lymphadenopathy noted. Swallow reflex is symmetrical. CHEST: Shows normal on inspection. Breath sounds are clear bilaterally. HEART: Shows S1, S2 clear. ABDOMEN: Obese, soft, nontender, nondistended. BACK: Shows spine grossly in the midline. Slight exaggeration of thoracic kyphosis. Cervical lordotic curvature is normal in appearance as is the lumbar lordotic curvature. With palpation, the lumbar paraspinous muscle shows symmetrical, but with tenderness throughout the upper, middle and lower distribution of the paraspinous muscles bilaterally, worse in the lower lumbar distribution. It is very firm musculature bilaterally, but without specific radiation. The patient shows good rotational motion of lumbar spine with significant tenderness with extension, but not with forward flexion, right and left lateral rotation greater than 10 degrees is moderately tender as well. EXTREMITIES: The patient's lower extremities show deep tendon reflexes 2+ in the patellar, 1+ in tendo-calcaneus tendons. Motor exam is strong with 5/5 dorsiflexion, extension, quadriceps and hamstring flexion. The patient's left knee shows some moderate tenderness in the lateral aspect of the lateral collateral ligament and the lateral border of the patella, but shows good range of motion without significant crepitus or ratcheting. Peripheral pulses are in 1+ posterior tibia. No peripheral edema is noted. PLAN: Options were discussed with the patient. The patient's old chart was reviewed as her current medication regimen updated. Current review of systems updated today as well. We will order a whole body bone scan as it has been recommended. The patient is significantly worried about the L5 vertebral lesion. Also, we will schedule the patient for a Synvisc injection, left knee as she has done well with these in the past, most recently December and have her return once the Synvisc is available. The patient was given refill prescription for Robaxin 500 mg twice daily. Follow up once the Synvisc is available and schedule for a left intra-articular knee joint injection. GINO CACERES MD DR: Roya JOB#: [id number] / [id number]
== END | disposition home or self-care (01) ==
LOC: PNCL 11:03
PROVIDERS: ATTEND Anesthesiology
DX: M51.16 Intervertebral disc disorders with radiculopathy, lumbar region (principal); M47.26 Other spondylosis with radiculopathy, lumbar region; M50.10 Cervical disc disorder with radiculopathy, unspecified cervical region; M79.18 Myalgia, other site; M17.0 Bilateral primary osteoarthritis of knee
CPT/HCPCS: G0463

== ENCOUNTER → 2019-03-16 | Outpatient (CLI) | payer OTHER ==
[~2019-03-16] MED LIST changes: +HYLAN G-F 20 48 MG/6 ML SYRINGE INT ART ONE; +IOHEXOL 180 MG/ML 10 ML VIAL. ONE
--- NOTE | 2019-03-16 21:33 | PAIN ---
DATE OF SERVICE: 03/16/2019 PROGRESS NOTE FOR PAIN CLINIC DIAGNOSES: 1. Lumbar radiculopathy with lumbar degenerative disk disease and lumbar spondylosis. 2. Cervical radiculopathy with cervical degenerative disk disease. 3. Myofascial pain. 4. Bilateral knee joint pain with primary osteoarthritis, bilateral knee joints. HISTORY OF PRESENT ILLNESS: The patient is a 48-year-old female who returns for followup, was seen yesterday with preauthorization for a left knee joint injection with Synvisc. She has done well with these in the past. She is scheduled for a right total knee replacement. month with a left knee becoming much more painful and noticeable with walking, standing, especially climbing stairs, stepping off a curb or up on steps with all of her weight on her left leg, has become much more noticeable and she feels she has been favoring her right leg by using her left leg more and this is causing the pain to increase as well. The patient reports no new motor or sensory deficits or other complaints. The patient reports the pain is a 10 on a scale of 10 at its worst in the past week, 9 on average, 8 at its least and is a 9 today. The patient reports it is aching, sharp, dull, tight, shooting, cramping, stabbing, burning, tingling, radiating, becoming more constant, especially dull aching pain in the left leg with weightbearing, better with sitting or lying down, does awaken her from sleep at night several times each evening or each night. PHYSICAL EXAMINATION: VITAL SIGNS: The patient's blood pressure 140/108, pulse is 88, respirations are 16, temperature is 98.2 degrees Fahrenheit. Height is 5 feet 4 inches, weight is 266 pounds. GENERAL: The patient is awake, alert, oriented, appropriate, very pleasant demeanor. HEENT: Head is normocephalic, atraumatic. Extraocular movements are intact and symmetrical. Oral cavity shows mucous membranes moist and pink. NECK: Shows anterior throat supple. CHEST: Shows normal on inspection. Breath sounds are clear. HEART: Shows S1, S2 clear. ABDOMEN: Soft, nontender, nondistended. EXTREMITIES: The patient's lower extremities show deep tendon reflexes at 2+ in the patellar, 1+ tendo-calcaneus tendons. Left knee shows some moderate tenderness in the lateral aspect of the lateral collateral ligament, but with good range of motion, negative shelf sign. No ratcheting or crepitus of the left knee with range of motion both actively and passively. Options were discussed with the patient. The patient's old chart was reviewed as her current medication regimen updated. Current review of systems updated today as well. We will proceed with a left intra-articular knee joint injection of Synvisc-One. Risks were again discussed including, but not limited to bleeding, infection, possibility of extravasation of Synvisc as well as exposure to fluoroscopy and poor results regarding pain control. The patient understands and wished to proceed. The patient will return to clinic in approximately 2 weeks for followup. She was counseled as to return appointment, activity level and side effects to be aware of. DIAGNOSIS: Left knee joint pain with primary osteoarthritis, left knee joint. PROCEDURE: Left intra-articular knee joint injection using C-arm fluoroscopic guidance under sterile prep and drape using local anesthetic. MEDICATION INJECTED: A total of 6 mL of Synvisc-One and 2 mL of contrast. CONDITION AT DISCHARGE: Stable. The patient tolerated the procedure well, had no complications. GINO CACERES MD DR: FRANKLIN/luis m JOB#: [id number] / [id number]
== END ==
LOC: PNCL 10:13
PROVIDERS: ATTEND Anesthesiology
DX: M51.16 Intervertebral disc disorders with radiculopathy, lumbar region (principal); M79.18 Myalgia, other site; M50.10 Cervical disc disorder with radiculopathy, unspecified cervical region; M17.0 Bilateral primary osteoarthritis of knee
CPT/HCPCS: 20610; 77002; Q9965

== ENCOUNTER 2019-04-08 22:11 | Emergency (ER) | payer OTHER, MEDICAID ==
[~2019-04-08] VITALS: Ht 162.6 cm; Wt 120.0 kg
[~2019-04-08 22:11] MED LIST changes: -HYLAN G-F 20 48 MG/6 ML SYRINGE INT ART ONE; -IOHEXOL 180 MG/ML 10 ML VIAL. ONE
[2019-04-08 22:15] VITALS: BP 158/87
--- NOTE | 2019-04-08 22:54 | PHYS DOC ---
Past Medical History Past Medical History: No Pertinent History Past Surgical History: No Surgical History Alcohol Use: Occasionally Adult General Chief Complaint Chief Complaint: MECHANICAL FALL HPI HPI Patient is a 48 year old female who presents to the ED today complaining of moderate pain to the left foot that began after she fell. Patient reports having had some alcohol prior to falling, denies hitting her head on the ground. She states she has degenerative disease of the right knee which she believes gave out leading to her fall. She reports pain is worse on the left foot on weight bearing. She reports pain is sharp and constant. Review of Systems Review of Systems Constitutional: Denies fever or chills [] : Denies dysuria or hematuria [] Musculoskeletal: Reports left foot pain. Denies back pain Integument: Denies rash or skin lesions [] Neurologic: Denies headache, focal weakness or sensory changes [] All other systems were reviewed and found to be within normal limits, except as documented in this note. Current Medications Current Medications Current Medications Medications (Trade) Dose Ordered Sig/Rosaura Start Time Stop Time Status Last Admin Dose Admin Acetaminophen/ Hydrocodone Bitart (Lortab 5/325) 1 tab 1X ONCE 04/08/19 23:00 04/08/19 23:01 04/08/19 22:43 1 TAB Diphtheria/ Tetanus/Acell Pertussis (Boostrix) 0.5 ml ONCE ONCE 04/08/19 23:00 04/08/19 23:01 04/08/19 22:44 0.5 ML Allergies Allergies Allergies Coded Allergies Type Severity Reaction Last Updated Verified aspirin Allergy Severe Shortness of Air 09/05/18 Yes ibuprofen Allergy Severe throat swelling 09/05/18 Yes Physical Exam Physical Exam Constitutional: Well developed, well nourished, no acute distress, non-toxic appearance. [] Skin: Warm, dry, no erythema, Back: No tenderness, no CVA tenderness. [] Extremities: Bruising noted on the right garcia, left foot has moderate swelling with bruising on the toes. Tenderness on palpation of the left ventral foot diffusely. Slight tenderness on palpation of the navicular bone of the left foot as well as the base of the fifth metatarsal. +2 left pedal pulse. Cap refill less than 2 seconds the left toes. Sensation intact Neurologic: Alert and oriented X 3, normal motor function, normal sensory function, no focal deficits noted. [] Psychologic: Appears intoxicated, smells of alcohol Current Patient Data Vital Signs Vital Signs Date Time Temp Pulse Resp B/P (MAP) Pulse Ox O2 Delivery O2 Flow Rate FiO2 04/08/19 22:43 18 94 Room Air 04/08/19 22:15 97.8 91 158/87 (110) 97.8 EKG EKG [] Radiology/Procedures Radiology/Procedures [] Course & Med Decision Making Course & Med Decision Making Pertinent Labs and Imaging studies reviewed. (See chart for details) This is a 48-year-old female patient presenting to the ED today with left foot pain status post falling. Left foot x-rays noted for fifth metatarsal fracture. Patient was placed in a posterior leg splint by the ED RN. Neurovascular exam is intact. Ice elevation encouraged. Follow-up with orthopedic doctor in the course of this week. Dragon Disclaimer Dragon Disclaimer This electronic medical record was generated, in whole or in part, using a voice recognition dictation system. Departure Departure Impression: Primary Impression: Fall from standing Additional Impression: Fracture of fifth metatarsal bone of left foot Disposition: 01 HOME, SELF-CARE Condition: STABLE Referrals: NO PCP (PCP) YANNI STOCKTON II, MD call him tomorrow and set up a follow up appointment Patient Instructions: Metatarsal Fracture, Undisplaced Additional Instructions: You have fracture of the left fifth metatarsal. Please contact the orthopedic doctor tomorrow morning and set up a follow-up appointment. Do not put weight on the left foot. Try to ice and elevate the extremity. Scripts Hydrocodone/Apap 5-325 (NORCO 5-325 TABLET) 1 Each Tablet 1 TAB PO Q6HRS, #12 TAB Prov: MARK CALDERA APRN 04/08/19 Problem Qualifiers Primary Impression: Fall from standing Encounter type: initial encounter Qualified Codes: W19.XXXA - Unspecified fall, initial encounter Additional Impression: Fracture of fifth metatarsal bone of left foot Encounter type: initial encounter Fracture type: closed Fracture alignment: nondisplaced Qualified Codes: S92.355A - Nondisplaced fracture of fifth metatarsal bone, left foot, initial encounter for closed fracture MARK CALDERA APRN Apr 08, 2019 22:54
[2019-04-08] MEDS ORDERED: DIPHTH,PERTUSS(ACELL),TET TOX 0.5 ML DISP.SYRIN. VAX IM ONE (23:00)
[2019-04-08] MEDS ORDERED: HYDROcodone/APAP 5/325MG 1 TAB TABLET PO ONE (23:00)
[2019-04-08] MEDS ORDERED: HYDR-3164 PO (23:04)
--- NOTE | 2019-04-08 23:21 | RAD ---
FOOT LEFT 3V DATE: 04/08/2019 10:30 PM INDICATION: Pain after falling COMPARISON: None. FINDINGS: Bones: Acute fracture of the distal fifth metatarsal shaft with medial displacement of the metatarsal head. Joints: The joint spaces are normal. Miscellaneous: Soft tissue swelling is present. IMPRESSION: Acute displaced fifth metatarsal fracture. Electronically signed by: Chad Lucas MD (04/08/2019 11:18 PM) [facility]
--- NOTE | 2019-04-09 | RAD ---
Two View right Tibia Fibula: Clinical History: Pain. Technique: AP and lateral views were obtained. Comparison: None. Findings: The visualized osseous structures appear normal. Impression: No acute findings. End impression 3 views right foot: AP lateral oblique views The visualized osseous structures appear normal. IMPRESSION: No acute findings. Electronically signed by: Uzair Mcpherson III, MD (04/08/2019 11:56 PM) [id number]
== END 2019-04-09 00:12 | disposition home or self-care (01) ==
LOC: ER 22:11
DX: S92.355A Nondisplaced fracture of fifth metatarsal bone, left foot, initial encounter for closed fracture (principal); S80.11XA Contusion of right lower leg, initial encounter; F10.10 Alcohol abuse, uncomplicated; Z88.6 Allergy status to analgesic agent; W19.XXXA Unspecified fall, initial encounter; Y93.89 Activity, other specified; Y92.89 Other specified places as the place of occurrence of the external cause; Y99.8 Other external cause status; R60.9 Edema, unspecified
CPT/HCPCS: 29515; 73590; 73630; 90471; 90715; 99284

== ENCOUNTER → 2019-06-25 | Outpatient (CLI) | payer OTHER ==
[~2019-06-25] MED LIST changes: +HYLAN G-F 20 48 MG/6 ML SYRINGE INT ART ONE; +IOHEXOL 180 MG/ML 10 ML VIAL. ONE
--- NOTE | 2019-06-25 11:14 | PAIN ---
DATE OF SERVICE: 06/25/2019 PROGRESS NOTE FOR PAIN CLINIC DIAGNOSES: 1. Lumbar radiculopathy with lumbar degenerative disk disease and lumbar spondylosis. 2. Cervical radiculopathy with cervical degenerative disk disease. 3. Myofascial pain. 4. Bilateral knee joint pain with osteoarthritis bilateral knees. HISTORY OF PRESENT ILLNESS: The patient is a 49-year-old female who returns for followup status post previous interventional techniques of lumbar spine with lumbar epidural steroid injections, facet joint injections as well as bilateral knee joint injections with Synvisc. The patient has had her right knee replaced and is doing quite a bit better. She reports that her left knee is still significantly painful. She had an injection with Synvisc on 03/16/2019. The patient did fairly well, about 50% improvement with that and was returning, wishing to proceed with a left sided Synvisc repeat injection today. The patient has still significant pain in the knee with walking, standing, changing positions, especially putting all her weight on her left knee. Her right knee is doing much better after total knee replacement, but the left knee still. By her orthopedic recommendations, it needs to be replaced as well. She is trying to that off until her back is feeling better. The patient still complains of significant back pain across the low back into the right hip posteriorly, but it is her chief complaint other than the left knee pain. The patient reports the pain is aching and sharp in the back, tight and shooting across the back, stabbing and is becoming more constant in the knee, severe with walking, standing, especially putting all her weight on her left leg such as stairs or steps. The patient rates her pain as a 10 on a scale of 10 at its worst in the past week, 10 on average, 9 at its least and is a 10 today. The patient did have evaluation with outside spine surgeon and is requesting a second opinion as well through her worker's compensation coverage. PHYSICAL EXAMINATION: VITAL SIGNS: The patient's blood pressure 142/101, pulse 94, respirations 18, temperature 97.4 degrees Fahrenheit, height is 5 feet 4 inches, weight is 259 pounds. GENERAL: The patient is awake, alert, oriented, appropriate, very pleasant demeanor. HEENT: Shows normocephalic, atraumatic. Extraocular movements are intact and symmetrical. Oral cavity shows mucous membranes moist and pink. Dentition is intact. NECK: Shows anterior throat supple without palpable lymphadenopathy noted. Swallow reflex symmetrical. CHEST: Shows normal on inspection. Breath sounds are clear bilaterally. HEART: Shows S1, S2 clear. ABDOMEN: Obese, soft, nontender, nondistended. No palpable organomegaly is noted. BACK: Shows spine grossly in the midline, slight exaggerated thoracic kyphosis, normal-appearing cervical lordotic curvature. Some slight flattening of lumbar lordotic curvature. Lumbar paraspinous muscle shows symmetrical on inspection, with palpation it is diffusely tender throughout the upper, middle and lower distribution of paraspinous muscles bilaterally, firm but without specific trigger points and without radiation as well. The patient does show good rotational motion of lumbar spine, both laterally as well as extension and flexion with some moderate tenderness with extension, but not with forward flexion. EXTREMITIES: Lower extremities show deep tendon reflexes at 1+ in the patellar on the right, 2+ on the left. Previous surgical scars noted on the right side from knee replacement. Motor exam is strong with 5/5 dorsiflexion, extension on the right side, 4/5 on the left. The patient's knee shows good range of motion both actively and passively on the left knee. Right shows good mobility as well, some moderate tenderness with weightbearing only on the left, not on the right. Peripheral pulses are 1+. No peripheral edema bilaterally. Options were discussed with the patient. The patient's old chart was reviewed as her current medication regimen updated. Current review of systems updated today as well. We will proceed with a left intra-articular knee joint injection today with Synvisc. Risks were discussed including but not limited to bleeding, infection, possibility of intravascular injection sequelae, spread of Synvisc and extravasation as well as poor results regarding pain control and exposure of fluoroscopy. The patient understands and wished to proceed. The patient will return to clinic in approximately 2 weeks for followup. Also, was requesting recommendations with her back as we had tried the facet joint injections, tried lumbar epidural steroid injections without significant decrease in pain with either of these, we had recommended water therapy; however, she has been unable to do this right now secondary to the coronavirus shut down. It significantly may improve with significant amount of weight loss. We discussed this as well. The patient would like a second surgical opinion. We would recommend Dr. See Young for a second surgical opinion in [place] and that may be acceptable with her workers' compensation coverage. The patient would like to look into this. We will have the patient return following the knee in approximately 2 weeks for routine followup or call with progress note at that time. The patient also discussed her blood pressure today and have recommended a followup with her primary physician, as it is quite elevated as well. The patient understands and agrees, and will follow up as scheduled. DIAGNOSIS: Primary osteoarthritis, left knee joint. PROCEDURE: Left intraarticular knee joint injection using C-arm fluoroscopic guidance under sterile prep and drape using local anesthetic. MEDICATION INJECTED: A total of 6 mL of Synvisc as well as 1.5 mL of contrast. CONDITION AT DISCHARGE: Stable. The patient tolerated procedure well, had no complications. GINO CACERES MD DR: FRANKLIN/luis m JOB#: [id number] / [id number]
== END ==
LOC: PNCL 09:55
PROVIDERS: ATTEND Anesthesiology
DX: M17.0 Bilateral primary osteoarthritis of knee (principal); M51.16 Intervertebral disc disorders with radiculopathy, lumbar region; M47.816 Spondylosis without myelopathy or radiculopathy, lumbar region; M50.10 Cervical disc disorder with radiculopathy, unspecified cervical region; M79.18 Myalgia, other site
CPT/HCPCS: 20610; 77002; J7325; Q9965

== ENCOUNTER → 2019-08-01 | Outpatient (CLI) | payer OTHER ==
[~2019-08-01] MED LIST changes: -HYLAN G-F 20 48 MG/6 ML SYRINGE INT ART ONE; +IOHEXOL 180 MG/ML 10 ML VIAL. EPID ONE; -IOHEXOL 180 MG/ML 10 ML VIAL. ONE; +LIDOCAINE WITH 8.4% SOD BICARB 3 ML DISP.SYRIN. ONE
[2019-08-01 11:06] VITALS: BP 166/74
--- NOTE | 2019-08-01 11:52 | RAD ---
Examination: LUMBAR SPINE MIN 4V History: Lumbar radiculopathy Comparison/Correlation: 12/27/2016 lumbar spine x-ray exam Findings: A total of 4 images of the lumbar spine were obtained. This includes flexion, extension, neutral lateral projection images. L2 vertebral body compression deformity of approximately 25-30 percent is present. Superior endplate compression in particular is evident. This is similar upon correlation with the previous lumbar spine x-ray exam of 12/27/2016. Mild disc space narrowing at L1 and 2 is present. Alignment is normal. Mild facet joint degenerative changes of the lower lumbar spine multiple levels subtle levoconvex of the lower thoracic and upper lumbar spine is present. Impression: L2 vertebral body compression deformity is unchanged compared to 12/24/2016 lumbar spine x-ray exam. No suspicious new finding. Electronically signed by: Vinny Browne MD (08/01/2019 11:49 AM) [id number]
--- NOTE | 2019-08-01 12:05 | RAD ---
Examination: MYELOGRAPHY LUMBOSACRAL History: Lumbar radiculopathy Comparison/Correlation: None Findings: Risks and benefits of lumbar myelography were discussed with the patient. Informed consent was obtained. The patient was placed in the left anterior oblique position. Blunting of Betadine was performed at the L5-S1 level. Sterile drape was placed. Fluoroscopy was utilized for 2.3 minutes. 5 cc 1 percent lidocaine was administered at the L5-S1 level at the anticipated site of a spinal needle placement. A 6 [place] 20-gauge spinal needle was introduced under fluoroscopic guidance into the thecal sac at the L5-S1 level. Clear CSF was seen. 15 cc Omnipaque 180 was introduced into the thecal sac gradually. A total of 18 fluoroscopic images were acquired. Images were obtained in the flexion, extension, neutral position lateral projections. Frontal views were also acquired. 25-50 percent L2 superior endplate compression deformity is present. There is narrowing of the thecal sac at the L3-4, L4-5 and L5-S1 levels. Impression: Successful myelogram exam. Narrowing of the thecal sac at the lower and intervertebral disc space levels noted. No significant change on flexion or extension imaging. Electronically signed by: Vinny Browne MD (08/01/2019 12:02 PM) [id number]
--- NOTE | 2019-08-01 12:21 | RAD ---
Examination: CT LUMBAR SPINE W/CONTRAST History: Lumbar radiculopathy Comparison/Correlation: 12/27/2016 lumbar spine x-ray exam Findings: Axial images of lumbar spine were obtained following intrathecal contrast administration. Sagittal and coronal reformatted images were provided. Dedicated axial images of the lumbar spine intervertebral disc space levels were also provided. Alignment is within normal limits. There is minimal retrolisthesis of L2 in relation to L1. L2 vertebral body superior endplate compression deformity with height loss of 25-50 percent is seen. This is stable upon correlation with previous lumbar spine x-ray exam of 12/27/2016. Vertebral body heights are otherwise unremarkable. L1 vertebral body hemangioma is present. Neural foramina are patent. Exiting nerve roots are unremarkable with no findings of effacement. No significant intervertebral disc bulge is evident. No disc herniation or extrusion noted. Moderate narrowing of the thecal sac at L3-4, severe narrowing at L4-5, and severe narrowing at L5-S1 is evident. Epidural lipomatosis at these levels is noted. Posterior joint degenerative remodeling is mild to moderate extent at L5-S1. Mild degenerative changes are present involving facet joints otherwise primarily at L3-4 and L4-5. Partially visualized retroperitoneum is unremarkable. Minimal soft tissue gas posterior to L5-S1 corresponding to intervention prior to CT exam noted. Impression: Narrowing of the thecal sac is evident especially from the L3-4 disc space level to the upper sacral level. Epidural lipomatosis noted along this extent of the spinal canal. No significant disc bulge or evidence of disc extrusion. Neural foramina are widely patent with no nerve root effacement. L2 vertebral body compression deformity is unchanged. Electronically signed by: Vinny Browne MD (08/01/2019 12:18 PM) [id number]
--- NOTE | 2019-08-01 12:32 | NUR ---
Discharge Note: JAY LORD Discharge instructions and discharge home medications reviewed with Patient and a copy given. All questions have been answered and understanding verbalized. The following instructions and handouts were given: myelogram Dressing site remains clean and dry, pt tolerated PO without difficulty, no c/o headache Patient discharged to Home or Self Care with Spouse via Ambulated YUDY LOWERY Addendum: 08/01/19 at [address] RN Pt completed 2 hour recovery time post myelogram with no new complaints. YUDY LOWERY
== END | disposition home or self-care (01) ==
LOC: RAD 08:49
PROVIDERS: ATTEND Neurological Surgery
DX: M47.27 Other spondylosis with radiculopathy, lumbosacral region (principal); M43.8X6 Other specified deforming dorsopathies, lumbar region; M48.061 Spinal stenosis, lumbar region without neurogenic claudication; E88.2 Lipomatosis, not elsewhere classified
CPT/HCPCS: 72110; 72132; 72265; Q9965

== ENCOUNTER → 2019-08-16 | Outpatient (CLI) | payer MEDICAID, OTHER ==
[2019-08-01 11:06] VITALS: BP 166/74
[~2019-08-16] MED LIST changes: +ALPR2TAB5 PO; +BUPR150T6 PO; +CARI1.5C PO; +CLOT12CR2 TP; +ESTR-113 PO; -ESTR1TAB15 PO; +HYDR-2761 PO; -IOHEXOL 180 MG/ML 10 ML VIAL. EPID ONE; -LIDOCAINE WITH 8.4% SOD BICARB 3 ML DISP.SYRIN. ONE; +LISI10TA2 PO; +NYST15PO9 TP; +OMEP20TA8 PO; +OXYC1TAB15 PO; +PROM25TA10 PO; +SENN1TAB99 PO
[2019-08-16 15:50] LABS: BASO % 1 % (0-3); EOS # 0.2 x10^3/uL (0.0-0.7); EOS % 3 % (0-3); HEMATOCRIT 37.9 % (36.0-47.0); HEMOGLOBIN 13.1 g/dL (12.0-15.5); LYMPH # 3.2 x10^3/uL (1.0-4.8); LYMPH % 44 % (24-48); MEAN CORPUSCULAR HEMOGLOBIN 31 pg (25-35); MEAN CORPUSCULAR HGB CONC 35 g/dL (31-37); MEAN CORPUSCULAR VOLUME 90 fL (79-100); MONO # 0.7 x10^3/uL (0.0-1.1); MONO % 9 % (0-9); NEUT # 3.2 x10^3/uL (1.8-7.7); NEUT % 44 % (31-73); PLATELET COUNT 255 x10^3/uL (140-400); RED BLOOD COUNT 4.21 x10^6/uL (3.50-5.40); RED CELL DISTRIBUTION WIDTH 14.3 % (11.5-14.5); WHITE BLOOD COUNT 7.4 x10^3/uL (4.0-11.0)
[2019-08-16 15:59] LABS: PROTHROMBIN TIME PATIENT 11.6 SEC (11.7-14.0)
[2019-08-16 16:00] LABS: ALBUMIN 3.5 g/dL (3.4-5.0); CALCIUM 8.4 mg/dL (8.5-10.1); GFR 58.7; POTASSIUM 4.7 mmol/L (3.5-5.1); TOTAL BILIRUBIN 0.2 mg/dL (0.2-1.0); TOTAL PROTEIN 6.9 g/dL (6.4-8.2)
[2019-08-17 05:14] LABS: HEMOGLOBIN A1C 5.4 % (4.8-5.6)
== END | disposition home or self-care (01) ==
LOC: SURGPAT 14:02
PROVIDERS: ATTEND Neurological Surgery
DX: Z01.818 Encounter for other preprocedural examination (principal); Z11.59 Encounter for screening for other viral diseases; M48.061 Spinal stenosis, lumbar region without neurogenic claudication; M54.16 Radiculopathy, lumbar region
CPT/HCPCS: 36415; 80053; 83036; 85025; 85610; 85730; 87641; U0003; C9803-CS

== ENCOUNTER 2019-08-20 06:45 | Inpatient (IN) | payer MEDICAID, OTHER ==
[2019-08-20] VITALS (7 sets, daily range): BP systolic 122–155; BP diastolic 70–96
[~2019-08-20] VITALS: Ht 162.6 cm; Wt 124.7 kg
[~2019-08-20 06:45] MED LIST changes: +BACITRACIN 50,000 UNIT in IV NORMAL SALINE 1000ML BAG 1,000 ML IRR ONE; -OXYC1TAB15 PO; -SENN1TAB99 PO; +ceFAZolin SODIUM 3 GM in IV DEXTROSE 5% 100ML 100 ML IV PRN
[2019-08-20] MEDS ORDERED: PROCHLORPERAZINE 10 MG/2 ML VIAL. IV PRN (07:00)
[2019-08-20] MEDS ORDERED: ONDANSETRON PF 4 MG/2 ML VIAL. IV PRN (07:00)
[2019-08-20] MEDS ORDERED: fentaNYL PF VIAL 100 MCG/2 ML VIAL IV PRN (07:00)
[2019-08-20] MEDS ORDERED: LIDOCAINE 1% PF 2 ML VIAL. ID PRN (07:00)
[2019-08-20] MEDS ORDERED: MORPHINE SULFATE 2 MG/ML VIAL. IV PRN (07:00)
[2019-08-20] MEDS ORDERED: MIDAZOLAM HCL/PF 2 MG/2 ML VIAL. ONE (07:17)
[2019-08-20] MEDS ORDERED: PROPOFOL 10 MG/ML (20ML) VIAL. IV ONE (07:17)
[2019-08-20] MEDS ORDERED: DEXAMETHASONE SOD PHOS 20 MG/5 ML VIAL. ONE (07:17)
[2019-08-20] MEDS ORDERED: LIDOCAINE 2% PF 5 ML VIAL. ONE (07:17)
[2019-08-20] MEDS ORDERED: ONDANSETRON PF 4 MG/2 ML VIAL. ONE (07:17)
[2019-08-20] MEDS ORDERED: fentaNYL PF VIAL 100 MCG/2 ML VIAL ONE (07:20)
[2019-08-20] MEDS ORDERED: REMIFENTANIL 2 MG VIAL. IV ONE (07:20)
[2019-08-20] MEDS ORDERED: GELATIN SPONGE SIZE 100. ONE (07:21)
[2019-08-20] MEDS ORDERED: BUPIVACAINE MPF 0.5% 30 ML VIAL. ONE (07:21)
[2019-08-20] MEDS ORDERED: THROMBIN TOPICAL 20,000 UNIT SPRAY.SYRN KIT TP ONE (07:22)
[2019-08-20] MEDS ORDERED: LIDOCAINE 1%/EPI 1:100,000 20 ML VIAL. ONE (07:22)
[2019-08-20] MEDS ORDERED: SUCCINYLCHOLINE 200 MG/10 ML VIAL. ONE (07:27)
[2019-08-20] MEDS: IV RINGERS,LACTATED 1000ML 1,000 ML IV SCH ×2 (07:43→12:12)
[2019-08-20] MEDS ORDERED: PROPOFOL 100 ML IV ONE (08:43)
[2019-08-20] MEDS ORDERED: ePHEDrine PF IN SALINE 50 MG/10 ML SYRINGE. IV ONE (08:47)
[2019-08-20] MEDS ORDERED: GLYCOPYRROLATE 1 MG/5 ML VIAL. ONE (09:27)
[2019-08-20] MEDS ORDERED: IV NORMAL SALINE 1000ML BAG 1,000 ML IV SCH (11:20)
--- NOTE | 2019-08-20 11:20 | PDOC ---
BRIEF OPERATIVE NOTE Date: Aug 20, 2019 Pre-Op Diagnosis lumbar stenosis, lumbar radiculopathy, low back pain Post-Op Diagnosis same Procedure Performed lumbar 3-4, lumbar 4-5 bilateral laminectomies Surgeon Hector Kent Anesthesia Type: General Blood Loss 25ml Specimens Obtained decompression Findings significant stenosis L3-4, L4-5, neuromonitoring stable to improved post procedure Complications none apparent SHANE WILSON MD Aug 20, 2019 11:20
[2019-08-20] MEDS: fentaNYL PF VIAL 100 MCG/2 ML VIAL IV PRN ×4 (11:27→12:14)
[2019-08-20] MEDS ORDERED: CALCIUM CARBONATE 500 MG TAB.CHEW PO PRN (11:30)
[2019-08-20] MEDS ORDERED: NALOXONE 0.4 MG/ML VIAL. IV PRN ×2 (11:30)
[2019-08-20] MEDS ORDERED: fentaNYL PF VIAL 100 MCG/2 ML VIAL IVP PRN ×2 (11:30)
[2019-08-20] MEDS ORDERED: diphenhydrAMINE 50 MG/ML VIAL IV PRN (11:30)
[2019-08-20] MEDS ORDERED: MAGNESIUM HYDROXIDE 2,400 MG/30 ML ORAL.SUSP. PO PRN (11:30)
[2019-08-20] MEDS ORDERED: MAG HYDROX/ALUMINUM HYD/SIMETH 30 ML ORAL.SUSP PO PRN (11:30)
[2019-08-20] MEDS ORDERED: diphenhydrAMINE HCL 25 MG CAPSULE PO PRN (11:30)
[2019-08-20] MEDS ORDERED: ONDANSETRON PF 4 MG/2 ML VIAL. IVP PRN (11:30)
[2019-08-20] MEDS ORDERED: 0.9 % SODIUM CHLORIDE 10 ML DISP.SYRIN. IV PRN (11:30)
[2019-08-20] MEDS ORDERED: ACETAMINOPHEN 325 MG TABLET. PO PRN (11:30)
[2019-08-20] MEDS ORDERED: ZOLPIDEM 5 MG TABLET. PO PRN (11:30)
[2019-08-20] MEDS: HYDROmorphone 2 MG/ML VIAL IV PRN ×2 (12:01→12:30)
[2019-08-20] MEDS: METHOCARBAMOL 750 MG TABLET PO SCH ×2 (14:18→21:48)
[2019-08-20] MEDS: MULTIVITAMIN with MINERAL TABLET. PO SCH (14:18)
[2019-08-20] MEDS: oxyCODONE/APAP 5/325 1 TAB TABLET PO PRN ×3 (14:19→23:03)
[2019-08-20] MEDS: ALBUTEROL SULFATE 2.5 MG/3 ML NEBU. NEB SCH ×2 (16:16→21:06)
[2019-08-20] MEDS: FERROUS SULFATE 325 MG TABLET. PO SCH (17:20)
[2019-08-20] MEDS: PANTOPRAZOLE 40 MG TABLET.DR. PO SCH (17:20)
[2019-08-20] MEDS: CALCIUM CARB/VIT D3 500/200 TABLET. PO SCH (17:20)
[2019-08-20] MEDS ORDERED: ATORVASTATIN CALCIUM 20 MG TABLET PO SCH (21:00)
[2019-08-20] MEDS: CLOTRIMAZOLE 1% TOPICAL CREAM 15GM TUBE. TP SCH (21:00)
[2019-08-20] MEDS: DOCUSATE SODIUM 100 MG CAPSULE. PO SCH (21:00)
[2019-08-20] MEDS: buPROPion XL 150 MG TAB.ER.24H. PO SCH (21:00)
[2019-08-20] MEDS ORDERED: ESZOPICLONE PO SCH (21:00)
[2019-08-20] MEDS ORDERED: NON FORMULARY ITEM (Budesonide/Formoterol Fumarate (Symbicort 160-4.5 Mcg Inhaler) 2 PUFF) IH SCH (21:00)
[2019-08-20] MEDS: BUDESONIDE 0.5 MG/2 ML NEBU. NEB SCH (21:06)
[2019-08-20] MEDS: NYSTATIN TOPICAL POWDER 15GM BOTTLE. TP SCH (21:43)
[2019-08-20] MEDS: DIVALPROEX DELAYED RELEASE 500 MG TABLET.DR. PO SCH (21:49)
[2019-08-20] MEDS: SENNOSIDES/DOCUSATE 8.6/50MG TABLET. PO SCH (21:49)
[2019-08-20] MEDS: ALPRAZolam 1 MG TABLET PO SCH (23:02)
[2019-08-21 03:00] VITALS: BP 126/75
[2019-08-21] MEDS: oxyCODONE/APAP 5/325 1 TAB TABLET PO PRN ×2 (05:10→10:10)
[2019-08-21 07:00] VITALS: BP 144/82
[2019-08-21] MEDS: PANTOPRAZOLE 40 MG TABLET.DR. PO SCH (07:06)
[2019-08-21] MEDS: MULTIVITAMIN with MINERAL TABLET. PO SCH (07:52)
[2019-08-21] MEDS: SENNOSIDES/DOCUSATE 8.6/50MG TABLET. PO SCH (07:52)
[2019-08-21] MEDS: FERROUS SULFATE 325 MG TABLET. PO SCH (07:52)
[2019-08-21] MEDS: METHOCARBAMOL 750 MG TABLET PO SCH (07:53)
[2019-08-21] MEDS: buPROPion XL 150 MG TAB.ER.24H. PO SCH (07:53)
[2019-08-21] MEDS: DIVALPROEX DELAYED RELEASE 500 MG TABLET.DR. PO SCH (07:53)
[2019-08-21] MEDS: CALCIUM CARB/VIT D3 500/200 TABLET. PO SCH (07:54)
[2019-08-21] MEDS: ALPRAZolam 1 MG TABLET PO SCH (07:54)
[2019-08-21] MEDS: CLOTRIMAZOLE 1% TOPICAL CREAM 15GM TUBE. TP SCH (07:55)
[2019-08-21] MEDS: NYSTATIN TOPICAL POWDER 15GM BOTTLE. TP SCH (07:55)
[2019-08-21] MEDS: ALBUTEROL SULFATE 2.5 MG/3 ML NEBU. NEB SCH ×2 (08:23→12:00)
[2019-08-21] MEDS: BUDESONIDE 0.5 MG/2 ML NEBU. NEB SCH (08:23)
[2019-08-21] MEDS ORDERED: LISINOPRIL 10 MG TABLET PO SCH (09:00)
[2019-08-21] MEDS ORDERED: NON FORMULARY ITEM (Tiotropium Bromide (Spiriva) 1 CAP) IH SCH (09:00)
[2019-08-21] MEDS: DOCUSATE SODIUM 100 MG CAPSULE. PO SCH (09:00)
[2019-08-21] MEDS ORDERED: NON FORMULARY ITEM (Cariprazine Hydrochloride (Vraylar) 1 CAP) PO SCH (09:00)
--- NOTE | 2019-08-21 10:00 | NUR ---
Doing well ambulating in room with walker. Eating and drinking without any problems. Cont. monitor.
--- NOTE | 2019-08-21 10:39 | NUR ---
SW following. Discussed with RN, pt from home, has walker at home. RN advised no SW needs and anticipates discharge home with self care today.
--- NOTE | 2019-08-21 10:56 | PDOC ---
Progress Note: S: some incisional pain controlled with oral medication, states preoperative pain improved, has ambulated with therapy, denies acute complaints this AM O: AAOx4, IVERSON 5/5, sensation intact LT, dressing intact, flat A: POD 1 L3-4, L4-5 laminectomies - recovering well thus far P: d/c home today with standard post-op restrictions, follow-up in two weeks neurosurgery clinic [phone]. Justicifation of Admission Dx: Justifications for Admission: Justification of Admission Dx: N/A SHANE WILSON MD Aug 21, 2019 10:56
[2019-08-21 11:06] VITALS: BP 136/80
[2019-08-21] MEDS ORDERED: SENN1TAB99 PO (11:38)
[2019-08-21] MEDS ORDERED: OXYC1TAB15 PO ×2 (11:39→11:40)
[2019-08-21] MEDS ORDERED: METH-38 PO (11:42)
--- NOTE | 2019-08-21 13:35 | NUR ---
Discharge instructions given with prescriptions. Answered questions and concerns. Verbalized understanding. Pt discharge home accompanied by spouse.
--- NOTE | 2019-08-22 17:06 | PATHOLOGY ---
[facility] Accession Number: [id number] . 01 Material submitted: . vertebral column - L3-4, L4-5 DECOMPRESSION . 01 Clinical history: . Lumbar stenosis, radiculopathy . 02 Diagnosis: Segments of fibrocartilaginous and adipose tissue and bone, lumbar decompression: - Degenerative changes of fibrocartilaginous tissue. (JPM:savannah 08/22/2019) S 08/22/2019 1245 Local . 02 Comment: There is no evidence of an acute inflammatory process or malignancy. (JPM:savannah; 08/22/2019) . 02 Electronically signed: . Christ Peña MD, Pathologist NPI- [id number] . 01 Gross description: . The specimen is received in formalin, labeled "[place], decompression". The specimen is additionally labeled on the requisition in the operative procedure as, "L3-4, L4-5 laminectomy". Received is a large amount of white-byrne to pink-byrne gritty fibrous tissue admixed with fragments of bone measuring 6.6 x 5.9 x 1.2 cm in aggregate dimensions. The specimen is submitted representatively in cassette A1, following light decalcification. (CAA; 08/21/2019) QAC/QA 08/21/2019 1051 Local . 02 Pathologist provided ICD-10: M99.73, M54.10 . 02 CPT . 645978, [id number] Specimen Comment: A courtesy copy of this report has been sent to [phone], [phone] Specimen Comment: [id number] Specimen Comment: Report sent to / DR GEORGE Specimen Comment: Report sent to Performed at: [address] [place] [address] [facility] [address], [place], [place] [id number] MD Gbao Laura MD Phone: [phone] Performed at: [address] [id number] MD Christ Peña MD Phone: [phone]
--- NOTE | 2019-08-28 13:50 | OP ---
DATE OF SURGERY: 08/20/2019 SURGEON: See Wilson MD MAIL SERVICE COORDINATOR: Juan J Kent MD PREOPERATIVE DIAGNOSES: 1. Lumbar stenosis. 2. Lumbar radiculopathy, back pain. POSTOPERATIVE DIAGNOSES: 1. Lumbar stenosis. 2. Lumbar radiculopathy, back pain. PROCEDURE: Bilateral laminectomy of lumbar 3-4 and lumbar 4-5 with intraoperative use of neuro monitoring. ANESTHESIA: General. COMPLICATIONS: None. INDICATIONS FOR THE PROCEDURE: The patient is a 49-year-old female with bilateral lower extremity pain and back pain with lumbar stenosis, who has been refractory to conservative treatments. Please refer to the patient's chart for additional details. DESCRIPTION OF PROCEDURE: After informed consent was obtained, the patient was brought to the operating room, and was placed under general anesthesia. Ancef was instituted as prophylactic antibiotic. Lumbar region was prepped and draped in the usual sterile fashion. Fluoroscopy was utilized to localize an appropriate incision location. A vertical incision was made over the region of lumbar 3-4, lumbar 4-5 in the midline. Monopolar electrocautery was utilized to dissect the avascular midline to the spinous processes of lumbar 3, 4 and 5 and bilaterally across the lamina at these locations. Level was again verified with fluoroscopy. Once this was complete, bilateral laminectomy was performed across the inferior aspect of lumbar 3, the entirety of lumbar 4 and superior aspect of lumbar L5. This was performed with a [place] as well as a pneumatic drill and Kerrison rongeurs. The underlying ligament was gently dissected away from the thecal sac with a [place] and removed with Kerrison rongeurs. Significant hypertrophied ligament was noted producing significant stenosis at both decompressive locations. Once the ligament was removed and lateral recesses were decompressed with Kerrison rongeur, decompression was verified with direct visualization as well as gentle palpation with a Kimberli and a Aquino ball probe. Upon completion of the bilateral laminectomies, neuro monitoring was noted to be at least baseline throughout with some mild improvement post-decompression. Pristine hemostasis was achieved with Gelfoam, thrombin, generous irrigation and some use of bipolar electrocautery. The wound was generously irrigated with antibiotic irrigation prior to the final closure. The muscle and fascia were then reapproximated with 0 Vicryl in a simple interrupted fashion. Subcutaneous tissues were reapproximated with 2-0 Vicryl in interrupted inverted fashion. Skin was reapproximated with 3-0 Vicryl in a running subcuticular fashion. Mastisol and Steri-Strips were applied and the wound was dressed with Telfa and Tegaderm. At the end of procedure, all counts were correct. Neuro monitoring was at least baseline throughout the entirety of the procedure. There were no intraprocedural complications apparent. The patient was extubated in the operating room and taken to recovery in stable condition. SEE WILSON MD DR: SUSANNAH/luis m JOB#: [id number] / [id number]
== END 2019-08-21 13:35 | disposition home or self-care (01) | DRG 517 ==
LOC: SURG 06:45 → 4 NORTH 11:20
PROVIDERS: ADMIT Neurological Surgery; ATTEND Neurological Surgery
PROC: 4A11X4G Monitoring of Peripheral Nervous Electrical Activity, Intraoperative, External Approach (ICD-10-PCS; 2019-08-20)
PROC: 01NB0ZZ Release Lumbar Nerve, Open Approach (ICD-10-PCS; principal; 2019-08-20 08:00)
DX: M48.061 Spinal stenosis, lumbar region without neurogenic claudication (principal); M54.16 Radiculopathy, lumbar region; Z88.8 Allergy status to other drugs, medicaments and biological substances; Z79.899 Other long term (current) drug therapy; I10 Essential (primary) hypertension; J45.30 Mild persistent asthma, uncomplicated
CPT/HCPCS: 36415; 76000; 86850; 86900; 86901; 88304; 88311; 94640; 94760; A7015; J0330; J1100; J1170; J2250; J2405; J2704; J3010; J3490; J7030; J7120; G0378; J7613; J7626

== ENCOUNTER 2019-10-14 19:05 | Emergency (ER) | payer MEDICAID, OTHER ==
[~2019-10-14] VITALS: Ht 162.6 cm; Wt 123.6 kg
[~2019-10-14 19:05] MED LIST changes: -BACITRACIN 50,000 UNIT in IV NORMAL SALINE 1000ML BAG 1,000 ML IRR ONE; +OXYC1TAB15 PO; +SENN1TAB99 PO; -ceFAZolin SODIUM 3 GM in IV DEXTROSE 5% 100ML 100 ML IV PRN
--- NOTE | 2019-10-14 21:07 | PHYS DOC ---
Past Medical History Past Medical History: Anxiety, Asthma, COPD, GERD Additional Past Medical Histor: HX HEP C. Past Surgical History: Other Additional Past Surgical Histo: BACK SX. Smoking Status: Current Every Day Smoker Alcohol Use: Occasionally General Adult EDM: Chief Complaint: ABDOMINAL PAIN HPI: HPI: Patient is a 49 year old female who presents with a sudden onset of left upper quadrant pain that started approximately 10 days ago. Patient rates it a 9/10 pain on a 1-10 pain scale. Patient states that the pain started suddenly after eating ravioli's. Patient states that the pain has not gone away but subsides throughout the day and returns if she eats. Patient denies nausea vomiting diarrhea or constipation. Patient states that she had a normal BM today. Patient denies any vaginal discharge, STI concerns, or urinary problems. Patient denies any fever or chills, denies any exposure to the COVID-19 virus, does not wish to be tested for the COVID-19 virus today. Patient denies any changes in her vision, any nasal congestion or sore throat, denies cough or shortness of breath, denies chest pains. Patient denies any pain in her back however does state that she has chronic back pains but the pain is relieved with taking Percocet at home which she did at 7 PM today. Patient denies any skin rashes, headaches, swelling of her glands. Patient denies any recent life changes, depressions, anxiety, homicidal or suicidal ideation. Review of Systems: Review of Systems: Constitutional: Denies fever or chills. Denies exposure to the COVID-19 virus. Eyes: Denies change in visual acuity. HENT: Denies nasal congestion or sore throat. Respiratory: Denies cough or shortness of breath. Cardiovascular: Denies chest pain or edema. GI: Complains of left upper quadrant pain without, nausea, vomiting, constipation or diarrhea. : Denies dysuria. Musculoskeletal: Denies back pain or joint pain. Integument: Denies rash. Neurologic: Denies headache, focal weakness or sensory changes. Endocrine: Denies polyuria or polydipsia. Lymphatic: Denies swollen glands. Psychiatric: Denies depression or anxiety. Denies homicidal or suicidal ideations Heart Score: Risk Factors: Risk Factors: DM, Current or recent (<one month) smoker, HTN, HLP, family history of CAD, obesity. Risk Scores: Score 0 - 3: 2.5% MACE over next 6 weeks - Discharge Home Score 4 - 6: 20.3% MACE over next 6 weeks - Admit for Clinical Observation Score 7 - 10: 72.7% MACE over next 6 weeks - Early Invasive Strategies Allergies: Allergies: Allergies Coded Allergies Type Severity Reaction Last Updated Verified aspirin Allergy Severe Anaphylaxis 08/20/19 Yes ibuprofen Allergy Severe Anaphylaxis 08/20/19 Yes Physical Exam: PE: Constitutional: Well developed, well nourished, no acute distress, non-toxic appearance. HENT: Normocephalic, atraumatic, bilateral external ears normal, oropharynx moist, no oral exudates, nose normal. Eyes: PERRLA, EOMI, conjunctiva normal, no discharge. Neck: Normal range of motion, no tenderness, supple, no stridor. Cardiovascular:Heart rate regular rhythm, no murmur Lungs & Thorax: Bilateral breath sounds clear to auscultation Abdomen: Bowel sounds normal, soft, tenderness to the left upper quadrant, no rebound tenderness noted, no psoas sign, no McBurney's point tenderness., no masses, no pulsatile masses. Skin: Warm, dry, no erythema, no rash. Back: No tenderness, no CVA tenderness. Extremities: No tenderness, no cyanosis, no clubbing, ROM intact, no edema. Neurologic: Alert and oriented X 3, normal motor function, normal sensory function, no focal deficits noted. Psychologic: Affect normal, judgement normal, mood normal. Current Patient Data: Vital Signs: Vital Signs Date Time Temp Pulse Resp B/P (MAP) Pulse Ox O2 Delivery O2 Flow Rate FiO2 10/14/19 19:54 98.9 79 20 140/76 (97) 97 Room Air 98.9 EKG: EKG: [] Radiology/Procedures: Radiology/Procedures: PATIENT: JAY LORD ACCOUNT: [id number] : 1970 LOCATION: ER AGE: 49 SEX: F EXAM STATUS: REG ER ORD. PHYSICIAN: MARY MOORE APRN REASON: LEFT UPPER QUADRANT PAIN, NORMAL LIPASE OMNI 300, 75ML IV PROCEDURE: CT ABDOMEN W/CONTRAST CT abdomen with contrast PQRS statement: CT scans at this facility use dose reduction including either automated exposure control, iterative reconstructions, and /or weight based radiation dosing via mA and kV modification when appropriate to reduce radiation dose to as low as reasonably achievable. Contrast: 75 mL Omnipaque 300 intravenous contrast HISTORY: Upper quadrant abdominal pain. FINDINGS: Chronic mild anterior wedge L2 vertebral compression fracture stable to prior imaging. L3 laminectomy. Hypodense liver likely fatty. Probable cardiomegaly hepatic lobe as a length of 24 cm. Within the central portion of segment 4 there is an ill-defined focal T1 posterior hypodense lesion image 25. There may be focal fatty sparing at gallbladder fossa the liver. Kidneys, adrenals, pancreas, gallbladder and spleen are unremarkable. Upper GI tract demonstrates no obstruction or inflammation. No abdominal fluid or adenopathy. IMPRESSION: 1. No acute process in the abdomen. 2. Hypodensity liver likely fatty. There may be hepatomegaly with elongation of the right hepatic lobe as described above. 3. Ill-defined 2.5 cm focal hypodense lesion within segment 4 of the liver. This is indeterminate. Perhaps this represents nodular focal steatosis. This could be further assessed with outpatient MR imaging. Electronically signed by: Anish Min MD (10/14/2019 11:45 PM) [facility] DICTATED and SIGNED BY: ANISH MIN MD DATE: 10/14/19 9181 Course & Med Decision Making: Course & Med Decision Making Pertinent Labs and Imaging studies reviewed. (See chart for details) 49-year-old patient presented to emergency department with slow onset of left upper quadrant pain. Vital signs reviewed labs were ordered, not concerning for acute infectious process, her lipase was negative. A CAT scan of her abdomen with contrast was ordered which was non-concerning for acute infectious process. Patient was given 50 mg of IV fentanyl which did not change her pain, however patient was given 1 mg of Dilaudid which brought her pain from a 9/10 pain rating down to a 0/10 pain on a 1-10 pain scale. Reviewed equivocal findings with patient recommended that patient follow-up with her primary care doctor if her pain does return. Patient gave verbal understanding of discharge/home instructions, patient had no further questions or concerns. Patient discharged to home. Dragon Disclaimer: Dragmatteo Disclaimer: This electronic medical record was generated, in whole or in part, using a voice recognition dictation system. Departure Departure Impression: Primary Impression: Abdominal pain, acute, left upper quadrant Disposition: 01 HOME, SELF-CARE Condition: GOOD Referrals: UNKNOWN PCP NAME (PCP) Patient Instructions: Abdominal Pain Additional Instructions: Follow-up with your doctor soon regarding your abdominal pain if it returns, return to the emergency department for worsening symptoms or further concerns. You may take [id number] Maalox and/or Motrin for pain at home. Justicifation of Admission Dx: Justifications for Admission: Justification of Admission Dx: N/A MARY MOORE APRN Oct 14, 2019 21:07
[2019-10-14 21:11] LABS: BASO # 0.1 x10^3/uL (0.0-0.2); BASO % 1 % (0-3); EOS # 0.2 x10^3/uL (0.0-0.7); EOS % 2 % (0-3); HEMOGLOBIN 11.8 g/dL (12.0-15.5); LYMPH # 3.1 x10^3/uL (1.0-4.8); LYMPH % 31 % (24-48); MEAN CORPUSCULAR HEMOGLOBIN 32 pg (25-35); MEAN CORPUSCULAR HGB CONC 35 g/dL (31-37); MEAN CORPUSCULAR VOLUME 92 fL (79-100); MONO % 10 % (0-9); NEUT # 5.5 x10^3/uL (1.8-7.7); NEUT % 55 % (31-73); PLATELET COUNT 266 x10^3/uL (140-400); RED BLOOD COUNT 3.72 x10^6/uL (3.50-5.40); RED CELL DISTRIBUTION WIDTH 14.1 % (11.5-14.5); WHITE BLOOD COUNT 9.9 x10^3/uL (4.0-11.0)
[2019-10-14] MEDS ORDERED: IV NORMAL SALINE 1000ML BAG 1,000 ML IV ONE (21:15)
[2019-10-14] MEDS ORDERED: fentaNYL PF VIAL 100 MCG/2 ML VIAL IVP ONE (21:15)
[2019-10-14 21:22] LABS: CALCIUM 8.2 mg/dL (8.5-10.1); CREATININE 0.8 mg/dL (0.6-1.0); GFR 75.9; POTASSIUM 3.7 mmol/L (3.5-5.1)
[2019-10-14 21:24] LABS: ALBUMIN 2.9 g/dL (3.4-5.0); ALBUMIN/GLOBULIN RATIO 0.8 (1.0-1.7); TOTAL BILIRUBIN 0.2 mg/dL (0.2-1.0); TOTAL PROTEIN 6.5 g/dL (6.4-8.2)
[2019-10-14 22:01] LABS: BILIRUBIN,URINE NEGATIVE (NEG); CLARITY,URINE CLEAR; COLOR,URINE YELLOW; NITRITE,URINE NEGATIVE (NEG); PROTEIN,URINE NEGATIVE (NEG-TRACE)
[2019-10-14 22:11] LABS: BACTERIA,URINE MANY /HPF (0-FEW); RBC,URINE OCC /HPF (0-2); SQUAMOUS EPITHELIAL CELL,UR MANY /LPF
[2019-10-14] MEDS ORDERED: HYDROmorphone 2 MG/ML VIAL IV ONE (22:45)
[2019-10-14] MEDS ORDERED: IOHEXOL 300 MG/ML 100ML VIAL. IV ONE (23:15)
[2019-10-14] MEDS ORDERED: CONTRAST GIVEN. MC PRN (23:15)
--- NOTE | 2019-10-14 23:48 | RAD ---
CT abdomen with contrast PQRS statement: CT scans at this facility use dose reduction including either automated exposure control, iterative reconstructions, and /or weight based radiation dosing via mA and kV modification when appropriate to reduce radiation dose to as low as reasonably achievable. Contrast: 75 mL Omnipaque 300 intravenous contrast HISTORY: Upper quadrant abdominal pain. FINDINGS: Chronic mild anterior wedge L2 vertebral compression fracture stable to prior imaging. L3 laminectomy. Hypodense liver likely fatty. Probable cardiomegaly hepatic lobe as a length of 24 cm. Within the central portion of segment 4 there is an ill-defined focal T1 posterior hypodense lesion image 25. There may be focal fatty sparing at gallbladder fossa the liver. Kidneys, adrenals, pancreas, gallbladder and spleen are unremarkable. Upper GI tract demonstrates no obstruction or inflammation. No abdominal fluid or adenopathy. IMPRESSION: 1. No acute process in the abdomen. 2. Hypodensity liver likely fatty. There may be hepatomegaly with elongation of the right hepatic lobe as described above. 3. Ill-defined 2.5 cm focal hypodense lesion within segment 4 of the liver. This is indeterminate. Perhaps this represents nodular focal steatosis. This could be further assessed with outpatient MR imaging. Electronically signed by: Andrew Min MD (10/14/2019 11:45 PM) [facility]
[2019-10-15 00:28] VITALS: BP 119/54
== END 2019-10-15 00:36 | disposition home or self-care (01) ==
LOC: ER 19:05
DX: R10.12 Left upper quadrant pain (principal); J44.9 Chronic obstructive pulmonary disease, unspecified; K21.9 Gastro-esophageal reflux disease without esophagitis; F17.200 Nicotine dependence, unspecified, uncomplicated; Z88.6 Allergy status to analgesic agent; Z88.8 Allergy status to other drugs, medicaments and biological substances
CPT/HCPCS: 36415; 74160; 80053; 81001; 83690; 85025; 87086; 96361; 96374; 96375; 99285; J1170; J3010; J7030; Q9967

== ENCOUNTER → 2019-12-31 | Outpatient (CLI) | payer OTHER ==
[~2019-12-31] MED LIST changes: +DIPH50CA PO; +FERR325T14 PO; +MULT-245 PO; +SENN-87 PO; +[UNRECOGNIZED DRUG - CODE] PO
[2019-12-31 10:46] LABS: ALBUMIN 3.6 g/dL (3.4-5.0); CALCIUM 9.4 mg/dL (8.5-10.1); CREATININE 0.8 mg/dL (0.6-1.0); GFR 75.9; POTASSIUM 3.9 mmol/L (3.5-5.1)
[2019-12-31 11:35] LABS: BASO # 0.1 x10^3/uL (0.0-0.2); BASO % 1 % (0-3); EOS # 0.1 x10^3/uL (0.0-0.7); EOS % 1 % (0-3); HEMATOCRIT 41.3 % (36.0-47.0); HEMOGLOBIN 13.8 g/dL (12.0-15.5); LYMPH # 2.9 x10^3/uL (1.0-4.8); LYMPH % 29 % (24-48); MEAN CORPUSCULAR HEMOGLOBIN 31 pg (25-35); MEAN CORPUSCULAR HGB CONC 33 g/dL (31-37); MEAN CORPUSCULAR VOLUME 92 fL (79-100); MONO # 0.7 x10^3/uL (0.0-1.1); MONO % 7 % (0-9); NEUT # 6.5 x10^3/uL (1.8-7.7); NEUT % 63 % (31-73); PLATELET COUNT 365 x10^3/uL (140-400); RED BLOOD COUNT 4.48 x10^6/uL (3.50-5.40); RED CELL DISTRIBUTION WIDTH 13.9 % (11.5-14.5); WHITE BLOOD COUNT 10.2 x10^3/uL (4.0-11.0)
[2019-12-31 11:59] LABS: PROTHROMBIN TIME PATIENT 11.9 SEC (11.7-14.0)
--- NOTE | 2019-12-31 13:26 | EKG ---
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
--- NOTE | 2019-12-31 14:39 | RAD ---
AP and Lateral Views of the Chest 12/31/2019 8:46 AM Indication: Reason: joint prehab class hx hyperlipidemia / Spl. Instructions: / History: Comparison: None Findings: There is no focal consolidation or infiltrate identified. The cardiomediastinal silhouette is within normal limits. There is no evidence of pneumothorax or pleural effusion. No acute osseous abnormalities are identified. Impression: No evidence of acute cardiopulmonary process. Electronically signed by: Efrain Cortez MD (12/31/2019 2:36 PM) [id number]
[2020-01-01 01:13] LABS: HEMOGLOBIN A1C 5.5 % (4.8-5.6)
== END ==
LOC: SURGPAT 12:53
PROVIDERS: ATTEND Orthopaedic Surgery
DX: Z01.818 Encounter for other preprocedural examination (principal); M17.12 Unilateral primary osteoarthritis, left knee; Z96.652 Presence of left artificial knee joint; Z88.6 Allergy status to analgesic agent
CPT/HCPCS: 36415; 71046; 80048; 82040; 82306; 83036; 85025; 85610; 85730; 86140; 87641; 93005

== ENCOUNTER → 2020-01-11 | Outpatient (CLI) | payer OTHER ==
[~2020-01-11] MED LIST changes: +VITA1TAB31 PO
== END ==
LOC: LAB 13:35
PROVIDERS: ATTEND Orthopaedic Surgery
DX: Z01.812 Encounter for preprocedural laboratory examination (principal); Z20.828 Contact with and (suspected) exposure to other viral communicable diseases
CPT/HCPCS: U0003

== ENCOUNTER 2020-01-15 08:43 | Inpatient (IN) | payer OTHER, MEDICAID ==
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
[~2020-01-15] VITALS: Ht 190.5 cm; Wt 119.3 kg
[2020-01-15] VITALS (7 sets, daily range): BP systolic 92–135; BP diastolic 53–80
[~2020-01-15 08:43] MED LIST changes: +ACETAMINOPHEN 500 MG TABLET PO PRN; +DEXAMETHASONE SOD PHOS 4 MG/ML VIAL ONE; +IV RINGERS,LACTATED 1000ML 1,000 ML IV SCH; +LIDOCAINE 1% PF 2 ML VIAL. ID PRN; +LIDOCAINE 2% PF 5 ML VIAL. ONE; +MELOXICAM 7.5 MG TABLET PO PRN; +ONDANSETRON PF 4 MG/2 ML VIAL. IV PRN; +ONDANSETRON PF 4 MG/2 ML VIAL. ONE; +PROCHLORPERAZINE 10 MG/2 ML VIAL. IV PRN; +PROPOFOL 10 MG/ML (20ML) VIAL. IV ONE; +TRANEXAMIC ACID 1,000 MG in IV NS 50ML -- 1ST BAG INJ ONE; +TRANEXAMIC ACID 1,000 MG in IV NS 50ML -- 2ND BAG INJ ONE; +TV=100ml MORPHINE 5 MG, KETOROLAC 30 MG, ROPIVacaine 0.5% PF 60 ML, EPINEPH... INT ART ONE; -VITA1TAB31 PO; +ePHEDrine PF IN SALINE 50 MG/10 ML SYRINGE. IV ONE; +fentaNYL PF VIAL 100 MCG/2 ML VIAL IV PRN; +fentaNYL PF VIAL 100 MCG/2 ML VIAL ONE
[2020-01-15] MEDS ORDERED: VITA1TAB31 PO (09:13)
[2020-01-15] MEDS ORDERED: LISI10TA2 PO (09:14)
[2020-01-15] MEDS ORDERED: VANCOMYCIN 1 GM VIAL. ONE ×2 (09:54)
[2020-01-15] MEDS ORDERED: TOBRAMYCIN POWDER 1.2 GM VIAL. ONE (09:54)
[2020-01-15] MEDS ORDERED: SEVOFLURANE > 120 MINUTES. IH ONE (11:06)
[2020-01-15] MEDS ORDERED: FAMOTIDINE 20 MG/2 ML VIAL ONE (11:06)
[2020-01-15] MEDS ORDERED: GLYCOPYRROLATE 1 MG/5 ML VIAL. ONE (11:19)
[2020-01-15] MEDS ORDERED: NEOSTIGMINE METHYLSULFATE 5 MG/5 ML SYRINGE. ONE (11:20)
[2020-01-15] MEDS ORDERED: fentaNYL PF VIAL 100 MCG/2 ML VIAL ONE (11:46)
--- NOTE | 2020-01-15 12:21 | PDOC4 ---
Operative Note Operative Note Date of Procedure: January 15, 2020 Pre-Op Diagnosis: Post-traumatic osteoarthritis of the left knee M17.32 Post-Op Diagnosis: same Procedure: left total knee arthroplasty with patella resurfacing, robotic assisted, CPT 62451 Surgeon: Mary Parkinson MD Flight Simulator Teacher: SIMBA Duran Anesthesia: General EBL: 100 mL Specimens Obtained: left knee bone and soft tissue Complications: none Drains: Hemovac plus pain catheter Tourniquet time: 60 Minutes Tourniquet Pressure: 300 mm Hg Indications for Procedure: Knee arthritis pain, affecting quality of life, unrelieved by nonoperative management Findings: Severe osteoarthritis with bone on bone contact and severe trochlea and patella eburnation at the patellofemoral joint with full thickness cartilage loss in the medial greater than lateral compartments. Slight fixed varus alignment, with tight medial structures, so a medial release was required using a Mullen elevator on the medial tibial structures. Implants: Guajardo [employer] Nephew Journey II Total Knee System, Size 3 left bicruciate stabilized Journey II BCS Oxinium femoral component, size 3 left Journey nonporous tibial baseplate, size 3-4 13 mm left Journey II BCS XLPE articular insert, 29 mm oval Marisol II resurfacing patellar component Procedure in Detail: The patient was identified in the preoperative holding area, and the correct left lower extremity was marked by me. The patient was taken to the operating room where the patient was anesthetized by the Department of Anesthesia. Preoperative antibiotics were given intravenously. Tranexamic acid 1 g was given intravenously for intraoperative hemostasis. A "time-out" procedure was performed. The patient was positioned supine on the operative table with a tourniquet on the upper left thigh. A left hip bump and heel bump were attached to the operating table for later intraoperative positioning. The left lower limb was thoroughly scrubbed, then sterile Chloraprep solution was applied, and the limb was draped in sterile fashion. The operating team wore exhaust ventilated hoods with redBus.in Personal Protection Toga Zippered Peel-Away protection system. An impervious stockinet and an adhesive drape were used such that the skin was entirely covered. The limb was exsanguinated with an Esmarch bandage, and the tourniquet was inflated. A midline skin incision was made with a scalpel using the patella and tibial tubercle as landmarks. Electrocautery was used for hemostasis. My hearing and speech assistant used rake retractors and a laparotomy sponge. A medial parapatellar arthrotomy incision was used with extension into the distal quadriceps tendon. The patella was retracted laterally and Hohmann retractors were now used by my hearing and speech assistant. Excess synovium, the menisci, and the cruciate ligaments were resected sharply. A periarticular multimodal ropiv acaine anesthetic injection was used in the suprapatellar pouch and distal quadriceps muscle. The patella was everted and exposed. The patella thickness was measured with a caliper, and then cut freehand with a saw, using caliper measurements to assess the resection. The lateral retinaculum was partially released from the lateral patella using electrocautery. Rongeurs were used to make sure there were no remaining exposed patellar osteophytes medially or laterally. The patella was sized, and then drilled for an oval three-peg patella component. The tibial tracker array for the NAVIO system was applied to the tibial crest four finger breadths below the tibial tubercle, using percutaneous incisions and bicortical pins. The femoral tracker array was applied outside of the original incision using two separate stab incisions using bicortical pins. Checkpoint verification pins were applied to the femur and tibia. Using the point probe, the medial and lateral malleoli were localized and the locations were stored. The center of the tibia was noted at the anterior cruciate ligament insertion and stored. The center of the femur was marked at the intersection of Whitesidess line with the transepicondylar axis. The hip center calculation was performed with range of motion of the hip. The femur neutral position was identified, and simulated weightbearing was performed with axial compression on the foot. Range of motion without stress was performed and the data collected. Range of motion with valgus stress, and range of motion with varus stress data collection was also performed. Rotational references include the Whitesidess line, and the trans-epicondylar axis. The femoral articular surface was now mapped in 3 dimensions using the point probe and digital data collected. The tibial condyle articular surfaces and cortical edges were mapped in 3 dimensions using the point probe including the medial and lateral tibial plateau. Implant planning was now performed on-screen with manipulation of the implant sizes, cut thicknesses and gaps, component rotation, component flexion/extension and component varus/valgus until satisfactory ligament balance, alignment and stability of the knee was expected throughout the range of motion. A medial release was required, using a 10 blade scalpel, and a Mullen elevator to elevate the medial structures from the upper medial tibia. My hearing and speech assistant held a Hohmann retractor, a medial Z-retractor, and an [employer] retractor to protect the medial and lateral collateral ligaments, the patellar tendon, the skin and the other soft tissues. The point probe was used to confirm the location of the checkpoint verification pins. The distal femoral surface was now prepared using the [place]sp[place] silvia with footpedal, and the NAVIO handpiece for bone removal to the previously planned distal femoral resection. The crosshairs at the pin locations were marked by using a mallet and the point probe for definitive location. A 5-in-1 Journey II cutting guide was then applied and the position was checked with the virtual valeria wing from the NAVIO to ensure proper placement as the pins were applied. The posterior, anterior, and all chamfer cuts were made with the oscillating saw. Excess bone was removed with an osteotome and rongeurs. The tibial cutting guide was applied, positioned using the NAVIO virtual valeria wing, and secured to the upper tibia using three pins at the previously planned location. The virtual valeria wing was used to confirm the resection depth, slope and coronal alignment. The upper tibia was cut made with an oscillating saw. My hearing and speech assistant held Hohmann retractors and a posterior cruciate ligament retractor to protect the medial and lateral collateral ligaments, the patellar tendon, the skin, the peroneal nerve and the other soft tissues. The upper tibia was sized with a trial baseplate. The posterior compartment was cleared of osteophytes and loose bodies. The periarticular anesthetic injection was used in the posterior compartment. The box cut for a posterior stabilized component was made. A preliminary reduction was performed with a trial femur, trial tibial baseplate and trial polyethylene. The NAVIO system was used to confirm range of motion, and postoperative stressed gap assessment. The stability was assessed using different thicknesses of tibial articular surface to find satisfactory stability and good range of motion. The rotation of the tibial component was marked on the upper tibia. Final trial reduction was now performed verifying patella tracking and tibiofemoral stability and alignment. The bone pins and tracker arrays were removed, and the checkpoint verification pins were removed. The tibia preparation was completed with a drill, saw, and fin punch at the previously noted rotation. The final implants were verified and opened. Outer gloves were changed by the operating team. Betadine lavage was used. The bone cuts were irrigated with saline using the Euclid InterPulse device and then dried with suction and laparotomy sponges. Two packages of Guajardo + Nephew Rally HV bone cement were mixed in powdered form with Vancomycin 1gm and Tobramycin 1.2 gm, and then vacuum-mixed with the monomer, and placed into a cement gun. The cut surfaces of the bone were thoroughly dried with suction and with laparotomy sponges for cement interdigit ation. The final components were cemented into place. The knee was kept at full extension while the cement hardened, and excess cement was removed. Tranexamic acid 1 g was redosed intravenously for additional intraoperative hemostasis. The tourniquet was released, and electrocautery was used for hemostasis. A final periarticular anesthetic injection was used for pain relief. The bone pin sites on the tibial crest were closed with #3-0 Nylon sutures. A final check of [id number]-if-[id number] and stability was made, and the polyethylene implant final size was chosen. The polyethylene implant was secured to the tibial baseplate, and the knee was reduced a final time and range of motion and stability was confirmed. Thorough irrigation was used. A pain catheter, and a 12 Fr Hemovac were inserted. Topical Vancomycin 1 gm was used during the closure. The arthrotomy was closed with interrupted [id number] #1 Vicryl suture. The arthrotomy incision was then run with #1 STRATAFIX Symmetric PDS Plus Knotless suture. The subcutaneous tissues were approximated initially with #2-0 Vicryl inverted interrupted sutures by my hearing and speech assistant. Next the subcuticular layer was approximated in a running fashion with #3-0 STRATAFIX suture by my hearing and speech assistant. The skin incision was then covered and reinforced by my hearing and speech assistant with Acticoat, followed by a RAFA single use negative pressure wound therapy dressing Soft roll and an Wil wrap were applied. Needle and sponge counts were correct. There were no apparent complications. The patient returned to the recovery room in stable condition. MARY PARKINSON MD Jan 15, 2020 12:21
[2020-01-15] MEDS ORDERED: PROPOFOL 10 MG/ML (20ML) VIAL. IV ONE (12:26)
[2020-01-15] MEDS ORDERED: DEXTROSE 50% 25 GM / 50ML DISP.SYRIN. IV PRN (12:30)
[2020-01-15] MEDS ORDERED: fentaNYL PF VIAL 100 MCG/2 ML VIAL IVP PRN (12:30)
[2020-01-15] MEDS ORDERED: METOCLOPRAMIDE HCL 10 MG/2 ML VIAL. IVP PRN (12:30)
[2020-01-15] MEDS ORDERED: 0.9 % SODIUM CHLORIDE 10 ML DISP.SYRIN. IV PRN (12:30)
[2020-01-15] MEDS ORDERED: diphenhydrAMINE 50 MG/ML VIAL IVP PRN (12:30)
[2020-01-15] MEDS ORDERED: ESZOPICLONE 3 MG PO PRN (12:30)
[2020-01-15] MEDS ORDERED: ZOLPIDEM 5 MG TABLET. PO PRN (12:30)
[2020-01-15] MEDS ORDERED: PROCHLORPERAZINE 5 MG TABLET. PO PRN (12:30)
[2020-01-15] MEDS ORDERED: CALCIUM CARBONATE 500 MG TAB.CHEW PO PRN (12:30)
[2020-01-15] MEDS: fentaNYL PF VIAL 100 MCG/2 ML VIAL IV PRN ×2 (12:45→12:50)
[2020-01-15] MEDS ORDERED: MORPHINE SULFATE 2 MG/ML VIAL. ONE (12:54)
[2020-01-15] MEDS: MORPHINE SULFATE 2 MG/ML VIAL. IV PRN ×2 (12:58→13:08)
[2020-01-15] MEDS ORDERED: PROCHLORPERAZINE 10 MG/2 ML VIAL. ONE (13:11)
[2020-01-15] MEDS ORDERED: HYDROmorphone 2 MG/ML VIAL ONE ×2 (13:11→13:53)
[2020-01-15] MEDS: HYDROmorphone 2 MG/ML VIAL IV PRN ×6 (13:15→14:06)
[2020-01-15] MEDS ORDERED: SEVOFLURANE 61 TO 120 MINUTES. IH ONE (13:30)
--- NOTE | 2020-01-15 13:32 | RAD ---
Left Knee: 01/15/2020 12:22 PM. Reason for study: Postoperative. Comparison: None. Technique: Two views of the left knee are obtained. Findings: There are findings consistent with recent left total knee arthroplasty, with hardware in good alignment and position. Immediate postsurgical changes within the regional soft tissues are noted. No complications are evident. Impression: Status post left total knee arthroplasty. Electronically signed by: Melanie Segovia MD (01/15/2020 1:28 PM) SHE[facility]
[2020-01-15] MEDS ORDERED: IV NORMAL SALINE 1000ML BAG 1,000 ML IV SCH (14:30)
[2020-01-15] MEDS: IPRATRPIUM/ALBUTEROL 0.5/2.5MG 3 ML NEBU. NEB SCH (16:00)
--- NOTE | 2020-01-15 16:03 | NUR ---
Patient arrived around 1500 in a bed from PACU. at bedside. She has two IVS which are working properly, fluids infusing in the right hand. RAFA, hemovac, and IAC present in her left knee. Dressing is CDI. She is on two liters of oxygen at this time because she is still drowsy/sedated but easily aroused. Pain around a 5 in her left knee. No concerns noted upon admission. Will continue to monitor.
[2020-01-15] MEDS ORDERED: ALBUTEROL SULFATE 2.5 MG/3 ML NEBU. NEB SCH (17:00)
[2020-01-15] MEDS: ONDANSETRON PF 4 MG/2 ML VIAL. IVP SCH (18:00)
[2020-01-15] MEDS: ONDANSETRON ODT 4 MG TAB.RAPDIS. PO SCH (18:00)
[2020-01-15] MEDS: MORPHINE SULFATE 4 MG/ML VIAL. IVP PRN (19:46)
[2020-01-15] MEDS: ATORVASTATIN CALCIUM 20 MG TABLET PO SCH (20:36)
[2020-01-15] MEDS: oxyCODONE/APAP 10/325 1 TAB TABLET PO PRN (20:36)
[2020-01-15] MEDS: APIXABAN 2.5 MG TABLET. PO SCH (20:36)
[2020-01-15] MEDS: DIVALPROEX DELAYED RELEASE 250 MG TABLET.DR. PO SCH (20:38)
[2020-01-15] MEDS: ALPRAZolam 1 MG TABLET PO SCH (20:43)
[2020-01-15] MEDS: diphenhydrAMINE HCL 25 MG CAPSULE PO SCH (21:00)
[2020-01-16] MEDS: MORPHINE SULFATE 4 MG/ML VIAL. IVP PRN ×3 (02:23→21:30)
[2020-01-16 02:40] VITALS: BP 109/63
[2020-01-16] MEDS: oxyCODONE/APAP 10/325 1 TAB TABLET PO PRN ×6 (02:59→21:14)
[2020-01-16] MEDS: ONDANSETRON ODT 4 MG TAB.RAPDIS. PO SCH ×3 (03:04→12:00)
--- NOTE | 2020-01-16 03:04 | NUR ---
Crying, c/o surgical pain. Ice pack placed and Morphine and Percocet given. Zofran given per request.
[2020-01-16 05:45] VITALS: BP 104/62
[2020-01-16] MEDS: ONDANSETRON PF 4 MG/2 ML VIAL. IVP SCH ×3 (06:00→12:00)
[2020-01-16] MEDS ORDERED: MAGNESIUM HYDROXIDE 2,400 MG/30 ML ORAL.SUSP. PO PRN (06:00)
--- NOTE | 2020-01-16 06:41 | NUR ---
IAC initiated. Patient much more calm.
[2020-01-16] MEDS: PANTOPRAZOLE 40 MG TABLET.DR. PO SCH (07:35)
[2020-01-16 08:43] VITALS: BP 128/73
[2020-01-16] MEDS: MULTIVITAMIN with MINERAL TABLET. PO SCH (08:44)
[2020-01-16] MEDS: LISINOPRIL 10 MG TABLET PO SCH (08:45)
[2020-01-16] MEDS: APIXABAN 2.5 MG TABLET. PO SCH ×2 (08:45→20:10)
[2020-01-16] MEDS: CELECOXIB 100 MG CAPSULE. PO SCH (08:45)
[2020-01-16] MEDS: CHOLECALCIFEROL (VITAMIN D3) 1,000 UNIT TABLET PO SCH (08:45)
[2020-01-16] MEDS: SENNOSIDES/DOCUSATE 8.6/50MG TABLET. PO SCH (08:45)
[2020-01-16] MEDS: ALPRAZolam 1 MG TABLET PO SCH ×2 (08:45→20:10)
[2020-01-16] MEDS: SENNOSIDES 8.6 MG TABLET PO SCH (08:47)
[2020-01-16] MEDS: DIVALPROEX DELAYED RELEASE 250 MG TABLET.DR. PO SCH ×2 (08:47→20:10)
[2020-01-16 08:55] LABS: HEMATOCRIT 33.1 % (36.0-47.0); HEMOGLOBIN 11.5 g/dL (12.0-15.5); RED BLOOD COUNT 3.62 x10^6/uL (3.50-5.40); RED CELL DISTRIBUTION WIDTH 14.4 % (11.5-14.5); WHITE BLOOD COUNT 14.5 x10^3/uL (4.0-11.0)
[2020-01-16] MEDS ORDERED: ANTI-COAG MONITOR BY PHARMACY. MC PRN (09:45)
[2020-01-16] MEDS ORDERED: ONDANSETRON PF 4 MG/2 ML VIAL. IVP PRN (12:00)
[2020-01-16] MEDS ORDERED: ONDANSETRON ODT 4 MG TAB.RAPDIS. PO PRN (12:00)
[2020-01-16] MEDS ORDERED: BISACODYL 10 MG SUPP.RECT. PR PRN (16:00)
[2020-01-16] MEDS: IPRATRPIUM/ALBUTEROL 0.5/2.5MG 3 ML NEBU. NEB SCH ×3 (16:17→20:00)
[2020-01-16] MEDS: CARIPRAZINE HYDROCHLORIDE 1.5 MG PO SCH (16:47)
[2020-01-16] MEDS: NORETHINDRONE AC ETH ESTRADIOL PO SCH (16:47)
--- NOTE | 2020-01-16 16:54 | NUR ---
c/o intense pain when moving about, 12/14, given Morphine IVP, bilateral IV infiltration, both discontinued, noted she is hard stick will give po pain meds as needed within time frame. Also ambulated to bathroom with spouse, informed he is not to assist to bathroom or get up from chair /bed without nursing staff for patient safety, agreeable
--- NOTE | 2020-01-16 17:08 | NUR ---
IV infiltrated c/o discomfort, cold pack applied by SEBASTIÁN Guthrie
--- NOTE | 2020-01-16 18:15 | NUR ---
attempted to restart iv x2; was unsuccessful. remains at bedside. resting quietly in bed. Addendum: 01/16/20 at 1816 by EDMUND CUEVAS RN nursing supervisor coal handling paged and notified ; need for iv
[2020-01-16 18:33] VITALS: BP 102/57
--- NOTE | 2020-01-16 18:58 | PDOC ---
PROGRESS NOTES Date of Service DATE: 01/16/20 TIME: 18:56 Subjective Subjective The patient was doing very well in therapy earlier today and basically showing often how well she was doing. I suspect she overdid it because now she is tearful and saying that there is quite a bit of knee pain and swelling. I checked her exam and it appears benign, just slightly swollen. I think she overdid it. Objective Vital Signs Vital Signs Date Time Temp Pulse Resp B/P (MAP) Pulse Ox O2 Delivery O2 Flow Rate FiO2 01/16/20 18:33 98.0 78 18 102/57 (72) 96 Room Air 98.0 01/15/20 15:19 2.0 Physical Exam The RAFA dressing is intact with spotty bloody drainage. The Hemovac and pain catheter have been removed. There is some bloody drainage from the drain site. There is moderate but expected swelling and no concerning areas of tenderness. No erythema. The calf is soft and nontender. Intact sensation at the foot and able to dorsiflex and plantarflex the toes and ankle without difficulty. Labs Laboratory Tests Test 01/16/20 08:35 White Blood Count 14.5 x10^3/uL (4.0-11.0) Red Blood Count 3.62 x10^6/uL (3.50-5.40) Hemoglobin 11.5 g/dL (12.0-15.5) Hematocrit 33.1 % (36.0-47.0) Mean Corpuscular Volume 91 fL (79-100) Mean Corpuscular Hemoglobin 32 pg (25-35) Mean Corpuscular Hemoglobin Concent 35 g/dL (31-37) Red Cell Distribution Width 14.4 % (11.5-14.5) Platelet Count 290 x10^3/uL (140-400) Laboratory Tests Test 01/16/20 08:35 White Blood Count 14.5 x10^3/uL (4.0-11.0) Red Blood Count 3.62 x10^6/uL (3.50-5.40) Hemoglobin 11.5 g/dL (12.0-15.5) Hematocrit 33.1 % (36.0-47.0) Mean Corpuscular Volume 91 fL (79-100) Mean Corpuscular Hemoglobin 32 pg (25-35) Mean Corpuscular Hemoglobin Concent 35 g/dL (31-37) Red Cell Distribution Width 14.4 % (11.5-14.5) Platelet Count 290 x10^3/uL (140-400) Imaging Report reviewed, images independently reviewed. Satisfactory total knee arthroplasty without apparent complications. [facility] [address] [place] [address] IMAGING REPORT Signed PATIENT: JAY LORD ACCOUNT: [id number] : 1970 LOCATION: SURG AGE: 49 SEX: F EXAM STATUS: [facility] PHYSICIAN: MARY JANG MD REASON: POST OP PROCEDURE: KNEE LEFT 2V Left Knee: 01/15/2020 12:22 PM. Reason for study: Postoperative. Comparison: None. Technique: Two views of the left knee are obtained. Findings: There are findings consistent with recent left total knee arthroplasty, with hardware in good alignment and position. Immediate postsurgical changes within the regional soft tissues are noted. No complications are evident. Impression: Status post left total knee arthroplasty. Electronically signed by: Prem Segovia MD (01/15/2020 1:28 PM) [facility] DICTATED and SIGNED BY: PREM SEGOVIA MD DATE: 01/15/20 1328 Assessment Assessment Postoperative day #1 after total knee arthroplasty Plan Plan of Care Continue DVT prophylaxis, and pain management. Continue physical therapy. Justicifation of Admission Dx: Justifications for Admission: Justification of Admission Dx: Yes MARY JANG MD Jan 16, 2020 18:58
[2020-01-16] MEDS: BUDESONIDE 0.5 MG/2 ML NEBU. NEB SCH ×2 (19:59→20:00)
[2020-01-16] MEDS: ATORVASTATIN CALCIUM 20 MG TABLET PO SCH (20:10)
[2020-01-16] MEDS: diphenhydrAMINE HCL 25 MG CAPSULE PO SCH (20:10)
[2020-01-16] MEDS ORDERED: ZOLPIDEM 5 MG TABLET. PO ONE (21:00)
--- NOTE | 2020-01-16 21:25 | NUR ---
22g IV cath started in right forearm by SEBASTIÁN Limon , nsg super on 1st attempt. Morphine given IVP. Pt states "I can finally get some sleep." Tearful at times. Left knee is swollen and bruised. Ice pack placed.
[2020-01-17] MEDS: MORPHINE SULFATE 4 MG/ML VIAL. IVP PRN (02:54)
[2020-01-17] MEDS: oxyCODONE/APAP 10/325 1 TAB TABLET PO PRN ×5 (04:26→20:35)
[2020-01-17] MEDS: IPRATRPIUM/ALBUTEROL 0.5/2.5MG 3 ML NEBU. NEB SCH ×4 (06:21→19:32)
[2020-01-17] MEDS: BUDESONIDE 0.5 MG/2 ML NEBU. NEB SCH ×2 (06:21→19:32)
[2020-01-17 06:33] VITALS: BP 128/72
[2020-01-17 07:38] LABS: HEMATOCRIT 34.2 % (36.0-47.0); HEMOGLOBIN 11.6 g/dL (12.0-15.5)
[2020-01-17] MEDS: MULTIVITAMIN with MINERAL TABLET. PO SCH (08:14)
[2020-01-17] MEDS: CHOLECALCIFEROL (VITAMIN D3) 1,000 UNIT TABLET PO SCH (08:14)
[2020-01-17] MEDS: SENNOSIDES 8.6 MG TABLET PO SCH (08:15)
[2020-01-17] MEDS: DIVALPROEX DELAYED RELEASE 250 MG TABLET.DR. PO SCH ×2 (08:15→21:30)
[2020-01-17] MEDS: CELECOXIB 100 MG CAPSULE. PO SCH (08:15)
[2020-01-17] MEDS: APIXABAN 2.5 MG TABLET. PO SCH ×2 (08:15→21:31)
[2020-01-17] MEDS: ALPRAZolam 1 MG TABLET PO SCH ×2 (08:15→21:31)
[2020-01-17] MEDS: CARIPRAZINE HYDROCHLORIDE 1.5 MG PO SCH (08:17)
[2020-01-17] MEDS: PANTOPRAZOLE 40 MG TABLET.DR. PO SCH (08:17)
[2020-01-17] MEDS: LISINOPRIL 10 MG TABLET PO SCH (08:17)
[2020-01-17] MEDS: NORETHINDRONE AC ETH ESTRADIOL PO SCH (08:17)
[2020-01-17] MEDS: SENNOSIDES/DOCUSATE 8.6/50MG TABLET. PO SCH (08:21)
--- NOTE | 2020-01-17 14:38 | PDOC ---
PROGRESS NOTES Date of Service DATE: 01/17/20 TIME: 14:36 Subjective Subjective Difficulties with pain management. Still requires IV pain meds Objective Vital Signs Vital Signs Date Time Temp Pulse Resp B/P (MAP) Pulse Ox O2 Delivery O2 Flow Rate FiO2 01/17/20 12:59 93 Room Air 01/17/20 08:17 80 128/72 01/17/20 06:33 98.1 18 98.1 01/15/20 15:19 2.0 Physical Exam Henny dressing with spotty bloody drainage. No blisters. Calf soft and nontende r. Labs Laboratory Tests Test 01/16/20 08:35 01/17/20 07:24 White Blood Count 14.5 x10^3/uL (4.0-11.0) Red Blood Count 3.62 x10^6/uL (3.50-5.40) Hemoglobin 11.5 g/dL (12.0-15.5) 11.6 g/dL (12.0-15.5) Hematocrit 33.1 % (36.0-47.0) 34.2 % (36.0-47.0) Mean Corpuscular Volume 91 fL (79-100) Mean Corpuscular Hemoglobin 32 pg (25-35) Mean Corpuscular Hemoglobin Concent 35 g/dL (31-37) 34 g/dL (31-37) Red Cell Distribution Width 14.4 % (11.5-14.5) Platelet Count 290 x10^3/uL (140-400) Laboratory Tests Test 01/17/20 07:24 Hemoglobin 11.6 g/dL (12.0-15.5) Hematocrit 34.2 % (36.0-47.0) Mean Corpuscular Hemoglobin Concent 34 g/dL (31-37) Assessment Assessment POD# 2 after TKA. Plan Plan of Care Continue PT and OT for safe discharge home. Pain management. Justicifation of Admission Dx: Justifications for Admission: Justification of Admission Dx: Yes MARY JANG MD Jan 17, 2020 14:38
--- NOTE | 2020-01-17 15:08 | PATHOLOGY ---
[facility] Accession Number: [id number] . 01 Material submitted: . knee - LEFT KNEE BONE AND TISSUE. Modifiers: left . 01 Clinical history: . OA . 02 Diagnosis: Segments of bone and soft tissue, left total knee arthroplasty: - Degenerative arthritis. (JPM:[facility] 01/17/2020) QTP 01/17/2020 1221 Local . 02 Electronically signed: . Christ Peña MD, Pathologist NPI- [id number] . 01 Gross description: . The specimen is received in formalin, labeled "[place], left knee bone and tissue". Received are multiple segments of bone, including the tibial plateau, admixed with soft tissue and meniscus, measuring 8.8 x 8.7 x 2.7 cm in aggregate dimensions. The articular surfaces are smooth to granular in appearance, however, eburnation is not grossly distinct. The specimen is submitted representatively in cassette A1, following decalcification. (CAA; 01/16/2020) QA/[facility] 01/16/2020 1042 Local . 02 Pathologist provided ICD-10: M17.12 . 02 CPT . 188827, [id number] Specimen Comment: A courtesy copy of this report has been sent to [phone] Specimen Comment: Report sent to Performed at: 01 [facility] [address] [place], [place] [id number] MD Inocente Booth MD Phone: [phone] Performed at: 02 [facility] [address] [place], [place] [id number] MD Christ Peña MD Phone: [phone]
[2020-01-17 17:54] VITALS: BP 117/71
[2020-01-17] MEDS: diphenhydrAMINE HCL 25 MG CAPSULE PO SCH (21:31)
[2020-01-17] MEDS: ATORVASTATIN CALCIUM 20 MG TABLET PO SCH (21:31)
[2020-01-18] MEDS: oxyCODONE/APAP 10/325 1 TAB TABLET PO PRN ×5 (00:37→16:17)
[2020-01-18] MEDS: BUDESONIDE 0.5 MG/2 ML NEBU. NEB SCH (05:58)
[2020-01-18] MEDS: IPRATRPIUM/ALBUTEROL 0.5/2.5MG 3 ML NEBU. NEB SCH ×3 (05:58→15:24)
[2020-01-18 06:14] VITALS: BP 115/75
[2020-01-18] MEDS: PANTOPRAZOLE 40 MG TABLET.DR. PO SCH (07:27)
[2020-01-18] MEDS: SENNOSIDES/DOCUSATE 8.6/50MG TABLET. PO SCH (08:00)
[2020-01-18] MEDS: MULTIVITAMIN with MINERAL TABLET. PO SCH (08:00)
[2020-01-18] MEDS: ALPRAZolam 1 MG TABLET PO SCH (08:00)
[2020-01-18] MEDS: DIVALPROEX DELAYED RELEASE 250 MG TABLET.DR. PO SCH (08:00)
[2020-01-18] MEDS: SENNOSIDES 8.6 MG TABLET PO SCH (08:01)
[2020-01-18] MEDS: CARIPRAZINE HYDROCHLORIDE 1.5 MG PO SCH (08:01)
[2020-01-18] MEDS: CELECOXIB 100 MG CAPSULE. PO SCH (08:01)
[2020-01-18] MEDS: CHOLECALCIFEROL (VITAMIN D3) 1,000 UNIT TABLET PO SCH (08:01)
[2020-01-18] MEDS: APIXABAN 2.5 MG TABLET. PO SCH (08:01)
[2020-01-18] MEDS: NORETHINDRONE AC ETH ESTRADIOL PO SCH (08:02)
[2020-01-18] MEDS: LISINOPRIL 10 MG TABLET PO SCH (08:07)
--- NOTE | 2020-01-18 09:00 | NUR ---
dangling on the side of bed. am care--shower. will change dressing after shower. she has redness from ankle to loweer garcia; warm to touch.
[2020-01-18 09:53] LABS: HEMATOCRIT 29.8 % (36.0-47.0); HEMOGLOBIN 10.1 g/dL (12.0-15.5)
--- NOTE | 2020-01-18 11:00 | NUR ---
Rafa dressing changed. redness continues from ankle and to lower garcia. incision without redness but is swollen cleansed withchlor prep then new RAFA applied
[2020-01-18 12:44] VITALS: BP 102/63
--- NOTE | 2020-01-18 17:38 | PDOC ---
PROGRESS NOTES Date of Service DATE: 01/18/20 TIME: 17:37 Subjective Subjective Feeling better today. No longer tearful today. Pain control has been improved. Objective Vital Signs Vital Signs Date Time Temp Pulse Resp B/P (MAP) Pulse Ox O2 Delivery O2 Flow Rate FiO2 01/18/20 16:17 20 01/18/20 15:27 97 Room Air 01/18/20 12:44 97.8 85 102/63 (76) 97.8 01/18/20 06:14 2.0 Physical Exam She has some redness of the lower calf. The calf is soft and nontender with a negative Homans' sign. Looks like she is starting to get a little cellulitis or phlebitis. The incision itself is dry and the Henny dressing is intact. Labs Laboratory Tests Test 01/17/20 07:24 01/18/20 09:23 Hemoglobin 11.6 g/dL (12.0-15.5) 10.1 g/dL (12.0-15.5) Hematocrit 34.2 % (36.0-47.0) 29.8 % (36.0-47.0) Mean Corpuscular Hemoglobin Concent 34 g/dL (31-37) 34 g/dL (31-37) Laboratory Tests Test 01/18/20 09:23 Hemoglobin 10.1 g/dL (12.0-15.5) Hematocrit 29.8 % (36.0-47.0) Mean Corpuscular Hemoglobin Concent 34 g/dL (31-37) Assessment Assessment POD# 3 after total knee arthroplasty. Plan Plan of Care Possible cellulitis, very mild at this point." Start some Keflex, in addition to her other discharge medications including Percocet and Xarelto. Justicifation of Admission Dx: Justifications for Admission: Justification of Admission Dx: Yes MARY JANG MD Jan 18, 2020 17:38
--- NOTE | 2020-01-18 17:41 | PDOC3 ---
Discharge Summary Visit Information Date of Admission: Jan 15, 2020 Date of Discharge: Jan 18, 2020 Final Diagnosis Posttraumatic osteoarthritis left knee Aftercare after left total knee arthroplasty Brief Hospital Course Allergies Allergies Coded Allergies Type Severity Reaction Last Updated Verified aspirin Allergy Severe Anaphylaxis 01/15/20 Yes ibuprofen Allergy Severe Anaphylaxis 01/15/20 Yes cyclobenzaprine Adverse Reaction Mild 01/15/20 Yes Vital Signs Vital Signs Date Time Temp Pulse Resp B/P (MAP) Pulse Ox O2 Delivery O2 Flow Rate FiO2 01/18/20 16:17 20 01/18/20 15:27 97 Room Air 01/18/20 12:44 97.8 85 102/63 (76) 97.8 01/18/20 06:14 2.0 Lab Results Laboratory Tests Test 01/17/20 07:24 01/18/20 09:23 Hemoglobin 11.6 g/dL (12.0-15.5) 10.1 g/dL (12.0-15.5) Hematocrit 34.2 % (36.0-47.0) 29.8 % (36.0-47.0) Mean Corpuscular Hemoglobin Concent 34 g/dL (31-37) 34 g/dL (31-37) Laboratory Tests Test 01/18/20 09:23 Hemoglobin 10.1 g/dL (12.0-15.5) Hematocrit 29.8 % (36.0-47.0) Mean Corpuscular Hemoglobin Concent 34 g/dL (31-37) Brief Hospital Course 49 year old who presented with knee osteoarthritis, for elective total knee arthroplasty. The patient underwent total knee arthroplasty under general anesthesia the day of admission. Perioperative antibiotics and DVT prophylaxis were used. Postoperatively physical therapy and case management were consulted. The patient progressed and is stable for discharge. Discharge Information Condition at Discharge: Stable Disposition/Orders: D/C to Home w/ HH Scheduled Alprazolam (Alprazolam), 1 TAB PO BID, (Reported) Atorvastatin Calcium (Atorvastatin Calcium), 1 TAB PO DAILY, (Reported) Budesonide/Formoterol Fumarate (Symbicort 160-4.5 Mcg Inhaler), 2 PUFF IH BID, (Reported) Cariprazine Hydrochloride (Vraylar), 1.5 MG PO DAILY, (Reported) Diphenhydramine Hcl (Diphenhydramine Hcl), 50 MG PO HS, (Reported) Divalproex Sodium (Depakote), 750 TAB PO BID, (Reported) Ferrous Sulfate (Ferrous Sulfate), 325 MG PO DAILY, (Reported) Lisinopril (Lisinopril), 1 TAB PO DAILY, (Reported) Multivitamin (Multi Vitamin Daily), 1 EACH PO DAILY, (Reported) Norethindrone AC-Eth Estradiol (Fyavolv 1 mg-5 Mcg Tablet), 1 EACH PO DAILY, (Reported) Omeprazole (Omeprazole), 40 MG PO DAILY, (Reported) Sennosides (Senna Lax), 8.6 MG PO DAILY, (Reported) Vitamin D3/Vitamin K2 (D3 + K2 Dots 1,000 Units Tab), 1 TAB PO DAILY, (Reported) Scheduled PRN Eszopiclone (Lunesta), 3 MG PO HS PRN for INSOMNIA, (Reported) Tiotropium [place] (Spiriva), 1 CAP IH PRN DAILY PRN for DYSPNEA, (Reported) Patient Instructions Patient Instructions Continue to weight bearing as tolerated with walker. Keep RAFA dressing intact and dry. Follow up with Dr. Parkinson's office Tuesday. Call for appointment unless already scheduled. Continue Eliquis 2.5 mg po bid for 30 days to prevent blood clots. Justicifation of Admission Dx: Justifications for Admission: Justification of Admission Dx: Yes MARY PARKINSON MD Jan 18, 2020 17:41
[2020-01-18 17:45] VITALS: BP 108/67
--- NOTE | 2020-01-18 17:48 | SNU/HH DC ---
DISCHARGE WITH HOME HEALTH DISCHARGE INFORMATION: Discharge Date: Jan 18, 2020 Final Diagnosis: Posttraumatic osteoarthritis left knee CODE STATUS: Code Status: Full HOME HEALTH: Face to Face: I certify this patient is under my care and that I, or a nurse practitioner or physician's wardrobe assistant working with me, had a face to face encounter that meets the physician face to face encounter requirements with this patient on 01/18/2020 Medical Complications: S/P Joint Replacement RN For Eval/Treatment: No Physical Therapy For: Evalulation/Treatment Occupational Therapy For: Evaluation/Treatment Pt Meets Homebound Status: Unsteady balance w/ amb,, Limited distance walking POST DISCHARGE ORDERS: Activity Instructions for Disc: Activity as tolerated, Avoid exertion, Progressive ambulation Weight Bearing Status after Di: Full weight bearing, As tolerated Bathing Instructions: Shower-keep dressing dry DIET AFTER DISCHARGE: Regular Wound/Incision Care: Ice to area for comfort, Keep wound/cast CDI, Keep wound elevated, Do not change dressing FOLLOW-UP: Additional Instructions: Eliquis 2.5 mg twice a day for DVT prophylaxis. Prescription sent to [facility]. Prescription for Percocet 10/325 sent to [facility]. TREATMENT/EQUIPMENT ORDERS: Adaptive Equipment Issued: Front wheeled walker CERTIFICATION STATEMENT: Certification Statement: Certification Statement: Based on the above finding, I certify that this patient is confined to the home and needs intermittent mcfp care, physical therapy and/or speech therapy, or continues to need occupational therapy.~ This patient is under my care, and I have initiated the establishment of the plan of care.~ This patient will be followed by myself or a community physician who will periodically review the plan of care. Home Meds Reported Medications Lisinopril (LISINOPRIL) 10 Mg Tablet, 1 TAB PO DAILY for HTN, #30 TAB 5 Refills 01/15/20 Vitamin D3/Vitamin K2 (D3 + K2 DOTS 1,000 UNITS TAB) 1 Each Tab.rapdis, 1 TAB PO DAILY for VITAMIN for 30 Days, #30 TAB 0 Refills 01/15/20 Eszopiclone (LUNESTA) 3 Mg Tablet, 3 MG PO HS PRN for INSOMNIA, TAB 01/03/20 Diphenhydramine Hcl (DIPHENHYDRAMINE HCL) 50 Mg Capsule, 50 MG PO HS for SLEEP AID, CAP 01/03/20 Norethindrone AC-Eth Estradiol (Fyavolv 1 mg-5 Mcg Tablet) 1 Each Tablet, 1 EACH PO DAILY for PROGESTERONE SUPPLEMENT, TAB 01/03/20 Cariprazine Hydrochloride (Vraylar) 1.5 Mg Capsule, 1.5 MG PO DAILY for ANTIPSYCHOTIC MED, CAP 01/03/20 Sennosides (SENNA LAX) 8.6 Mg Tablet, 8.6 MG PO DAILY for PREVENT CONSTIPATION, TAB 01/03/20 Ferrous Sulfate (FERROUS SULFATE) 325 Mg Tablet, 325 MG PO DAILY for IRON SUPPLEMENT, TAB 01/03/20 Multivitamin (MULTI VITAMIN DAILY) 1 Each Tablet, 1 EACH PO DAILY for SUPPLEMENT, TAB 01/03/20 Omeprazole (OMEPRAZOLE) 20 Mg Tablet.dr, 40 MG PO DAILY for reflux, #90 TAB 1 Refill 08/16/19 Alprazolam (ALPRAZOLAM) 2 Mg Tablet, 1 TAB PO BID for anxiety, #60 TAB 08/16/19 Atorvastatin Calcium (ATORVASTATIN CALCIUM) 20 Mg Tablet, 1 TAB PO DAILY, #30 TAB 5 Refills 08/28/18 Tiotropium [place] (SPIRIVA) 18 Mcg Cap.w.dev, 1 CAP IH PRN DAILY PRN for DYSPNEA, #30 CAP 3 Refills 08/28/18 Budesonide/Formoterol Fumarate (SYMBICORT 160-4.5 MCG INHALER) 10.2 Gm Hfa.aer.ad, 2 PUFF IH BID, #10.6 GM 3 Refills 08/28/18 Divalproex Sodium (DEPAKOTE) 500 Mg Tablet., 750 TAB PO BID for MOOD SUPPLEMENT, #60 TAB 1 Refill 08/28/18 MARY JANG MD Jan 18, 2020 17:48
[2020-01-18] MEDS ORDERED: APIX2.5T PO (18:09)
--- NOTE | 2020-01-18 18:30 | NUR ---
reviewed written discharge instructions. reviewed restrictions to activities of daily living such as bathing wearing medigrip on lower extremities driving incisional care and follow up with Dr. Parkinson. Dr. Parkinson starting on oral antibiotic. saline lock dcd. dismissed to home at bedside
== END 2020-01-18 18:40 | disposition home health service (06) | DRG 470 ==
LOC: SURG 08:43 → 4 SOUTHEST 12:22 → OBSVTOIN 01-17 16:43
PROVIDERS: ADMIT Orthopaedic Surgery; ATTEND Orthopaedic Surgery
PROC: 8E0Y0CZ Robotic Assisted Procedure of Lower Extremity, Open Approach (ICD-10-PCS; 2020-01-15)
PROC: 0SRD069 Replacement of Left Knee Joint with Oxidized Zirconium on Polyethylene Synthetic Substitute, Cemented, Open Approach (ICD-10-PCS; principal; 2020-01-15 10:15)
DX: M17.32 Unilateral post-traumatic osteoarthritis, left knee (principal); J43.9 Emphysema, unspecified; F32.9 Major depressive disorder, single episode, unspecified; F41.9 Anxiety disorder, unspecified; B19.20 Unspecified viral hepatitis C without hepatic coma; J30.9 Allergic rhinitis, unspecified; N80.9 Endometriosis, unspecified; F43.10 Post-traumatic stress disorder, unspecified; K76.0 Fatty (change of) liver, not elsewhere classified; Z96.651 Presence of right artificial knee joint; Z88.6 Allergy status to analgesic agent; Z87.891 Personal history of nicotine dependence; Z79.01 Long term (current) use of anticoagulants; Z79.51 Long term (current) use of inhaled steroids; Z83.3 Family history of diabetes mellitus; Z82.5 Family history of asthma and other chronic lower respiratory diseases
CPT/HCPCS: 36415; 73560; 85014; 85018; 85027; 86850; 86900; 86901; 94640; A7015; C1713; G0378; G0379; J0171; J0690; J0780; J1100; J1170; J2270; J2405; J2704; J2710; J2795; J3010; J3260; J3370; J3490; J7030; 97116-GP; 97150-GP; 97530-GO; 97530-GP; 97535-GO; A4461; C1769; J7626; Q0163; Q0164

== ENCOUNTER → 2020-01-21 | Outpatient (CLI) | payer OTHER, MEDICAID ==
[2020-01-18 12:44] VITALS: BP 102/63
[~2020-01-21] MED LIST changes: -ACETAMINOPHEN 500 MG TABLET PO PRN; +APIX2.5T PO; -DEXAMETHASONE SOD PHOS 4 MG/ML VIAL ONE; -IV RINGERS,LACTATED 1000ML 1,000 ML IV SCH; -LIDOCAINE 1% PF 2 ML VIAL. ID PRN; -LIDOCAINE 2% PF 5 ML VIAL. ONE; -MELOXICAM 7.5 MG TABLET PO PRN; -ONDANSETRON PF 4 MG/2 ML VIAL. IV PRN; -ONDANSETRON PF 4 MG/2 ML VIAL. ONE; -PROCHLORPERAZINE 10 MG/2 ML VIAL. IV PRN; -PROPOFOL 10 MG/ML (20ML) VIAL. IV ONE; -TRANEXAMIC ACID 1,000 MG in IV NS 50ML -- 1ST BAG INJ ONE; -TRANEXAMIC ACID 1,000 MG in IV NS 50ML -- 2ND BAG INJ ONE; -TV=100ml MORPHINE 5 MG, KETOROLAC 30 MG, ROPIVacaine 0.5% PF 60 ML, EPINEPH... INT ART ONE; +VITA1TAB31 PO; -ePHEDrine PF IN SALINE 50 MG/10 ML SYRINGE. IV ONE; -fentaNYL PF VIAL 100 MCG/2 ML VIAL IV PRN; -fentaNYL PF VIAL 100 MCG/2 ML VIAL ONE
--- NOTE | 2020-01-21 13:10 | RAD ---
Left lower extremity venous duplex study Clinical History: Lower extremity pain Technique: Using a combination of real time ultrasound imaging and color-flow and pulse Doppler imaging techniques, including spectral analysis, graded compression and augmentation, duplex evaluation of the deep venous system of the left lower extremity was performed. Multiple images were obtained. Findings: There is no sonographic evidence of deep venous thrombosis involving the visualized deep venous structures of the left lower extremity Impression: No evidence of deep venous thrombosis involving the left lower extremity Electronically signed by: Efrain Cortez MD (01/21/2020 1:07 PM) [id number]
--- NOTE | 2020-01-21 15:37 | RAD ---
EXAM: AP view both knees, lateral view left knee DATE: 01/21/2020 12:00 AM INDICATION: Reason: f/u left knee replacement, pt was unable to do sunrise view / Spl. Instructions: / History: COMPARISON: No Prior FINDINGS: Changes of left total knee arthroplasty, in good alignment without definite hardware complication or fracture. Small left knee joint effusion. Single AP view right knee demonstrates right total knee arthroplasty also in good alignment without definite fracture. IMPRESSION: Bilateral total knee arthroplasty, in good alignment without definite hardware complication or fracture. Small left knee joint effusion. Electronically signed by: Naldo Gastelum MD (01/21/2020 3:34 PM) [id number]
== END ==
LOC: PMGORTHO 11:59
PROVIDERS: ATTEND Orthopaedic Surgery
DX: Z47.1 Aftercare following joint replacement surgery (principal); M79.89 Other specified soft tissue disorders; M25.462 Effusion, left knee; Z96.652 Presence of left artificial knee joint
CPT/HCPCS: 93971

== ENCOUNTER 2020-03-30 09:41 | Emergency (ER) | payer MEDICAID, OTHER ==
[~2020-03-30] VITALS: Ht 165.1 cm; Wt 113.0 kg
[~2020-03-30 09:41] MED LIST changes: -BUPR150T6 PO; +BUPR150T7 PO
[2020-03-30 10:05] VITALS: BP 142/73
[2020-03-30] MEDS ORDERED: SULF1TAB24 PO (11:04)
[2020-03-30] MEDS ORDERED: CEPH750C9 PO (11:04)
[2020-03-30] MEDS ORDERED: CEPHALEXIN 250 MG CAPSULE. PO STA (11:04)
--- NOTE | 2020-03-30 11:04 | PHYS DOC ---
Past Medical History Past Medical History: Anxiety, Asthma, COPD, GERD Additional Past Medical Histor: HX HEP C. Past Surgical History: Knee Replacement, Other Additional Past Surgical Histo: BACK SX. Smoking Status: Former Smoker Alcohol Use: Occasionally General Adult EDM: Chief Complaint: ABSCESS HPI: HPI: Patient is a 49 year old female who presented to ER for evaluation of an abscess on the right side of her external vaginal area for several days. Patient denies any abdominal pain, no fever, no pelvic pain, no nausea vomiting. Patient denies vaginal discharge Review of Systems: Review of Systems: Constitutional: Denies fever or chills. [] Eyes: Denies change in visual acuity. [] HENT: Denies nasal congestion or sore throat. [] Respiratory: Denies cough or shortness of breath. [] Cardiovascular: Denies chest pain or edema. [] GI: Denies abdominal pain, nausea, vomiting, bloody stools or diarrhea. [] : Denies dysuria. [] Musculoskeletal: Denies back pain or joint pain. [] Integument: Positive for abscess Neurologic: Denies headache, focal weakness or sensory changes. [] Endocrine: Denies polyuria or polydipsia. [] Lymphatic: Denies swollen glands. [] Psychiatric: Denies depression or anxiety. [] Heart Score: Risk Factors: Risk Factors: DM, Current or recent (<one month) smoker, HTN, HLP, family history of CAD, obesity. Risk Scores: Score 0 - 3: 2.5% MACE over next 6 weeks - Discharge Home Score 4 - 6: 20.3% MACE over next 6 weeks - Admit for Clinical Observation Score 7 - 10: 72.7% MACE over next 6 weeks - Early Invasive Strategies Allergies: Allergies: Allergies Coded Allergies Type Severity Reaction Last Updated Verified aspirin Allergy Severe Anaphylaxis 01/15/20 Yes ibuprofen Allergy Severe Anaphylaxis 01/15/20 Yes cyclobenzaprine Adverse Reaction Mild 01/15/20 Yes Physical Exam: PE: Constitutional: Well developed, well nourished, no acute distress, non-toxic appearance. [] HENT: Normocephalic, atraumatic, bilateral external ears normal, oropharynx moist, no oral exudates, nose normal. [] Eyes: PERRLA, EOMI, conjunctiva normal, no discharge. [] Neck: Normal range of motion, no tenderness, supple, no stridor. [] Cardiovascular:Heart rate regular rhythm, no murmur [] Lungs & Thorax: Bilateral breath sounds clear to auscultation [] Abdomen: Bowel sounds normal, soft, no tenderness, no masses, no pulsatile masses. : There is a small abscess with central necrotic lesion on the right side of external vaginal area, appeared to be an infected ingrown hair. The necrotic lesion was easily broke with pressure, yellow pus was drained. Skin: Warm, dry, no erythema, no rash. [] Back: No tenderness, no CVA tenderness. [] Extremities: No tenderness, no cyanosis, no clubbing, ROM intact, no edema. [] Neurologic: Alert and oriented X 3, normal motor function, normal sensory function, no focal deficits noted. [] Psychologic: Affect normal, judgement normal, mood normal. [] Current Patient Data: Vital Signs: Vital Signs Date Time Temp Pulse Resp B/P (MAP) Pulse Ox O2 Delivery O2 Flow Rate FiO2 03/30/20 10:05 98.0 88 18 142/73 (96) 97 Room Air 98.0 EKG: EKG: [] Radiology/Procedures: Radiology/Procedures: [] Course & Med Decision Making: Course & Med Decision Making Pertinent Labs and Imaging studies reviewed. (See chart for details) [] Dragon Disclaimer: Dragon Disclaimer: This electronic medical record was generated, in whole or in part, using a voice recognition dictation system. Departure Departure Impression: Primary Impression: Abscess Disposition: 01 DC HOME SELF CARE/HOMELESS Condition: STABLE Referrals: NON,STAFF (PCP) follow up with your family doctor on Tuesday for reevaluation. Patient Instructions: Abscess Additional Instructions: Thank you for visiting our Emergency Department. We appreciate you trusting us with your care. If any additional problems come up don't hesitate to return to visit us. Please follow up with your primary care provider so they can plan additional care if needed and know about the problem that you had. If symptoms worsen come back to the Emergency Department. Any concerning symptoms that start such as chest pain, shortness of air, weakness or numbness on one side of the body, running high fevers or any other concerning symptoms return to the ER. Scripts Cephalexin (KEFLEX) 750 Mg Capsule 1 CAP PO QID for 10 Days, #40 CAP 0 Refills Prov: VALENTINA MCGINNIS DO 03/30/20 Sulfamethoxazole/Trimethoprim (BACTRIM DS TABLET) 1 Each Tablet 1 TAB PO BID for 10 Days, #20 TAB 0 Refills Prov: VALENTINA MCGINNIS DO 03/30/20 VALENTINA MCGINNIS DO Mar 30, 2020 11:04
[2020-03-30] MEDS ORDERED: SMZ/TMP 800/160MG TABLET. PO ONE (11:15)
== END 2020-03-30 12:00 | disposition home or self-care (01) ==
LOC: ER 09:41
DX: N76.0 Acute vaginitis (principal); F41.9 Anxiety disorder, unspecified; J45.909 Unspecified asthma, uncomplicated; K21.9 Gastro-esophageal reflux disease without esophagitis; J44.9 Chronic obstructive pulmonary disease, unspecified; Z87.891 Personal history of nicotine dependence; Z98.890 Other specified postprocedural states; Z88.8 Allergy status to other drugs, medicaments and biological substances
CPT/HCPCS: 99283

== ENCOUNTER → 2020-04-09 | Outpatient (CLI) | payer MEDICAID ==
[2020-03-30 10:05] VITALS: BP 142/73
[~2020-04-09] MED LIST changes: +BUPR150T21 PO; -BUPR150T7 PO; +CEPH750C9 PO; +DICY20TA3 PO; +IOHEXOL 180 MG/ML 10 ML VIAL. ONE; +LISI10TA16 PO; -LISI10TA2 PO; +ONDA4TAB12 PO; +SULF1TAB24 PO; +methylPREDNISolone ACETATE 40 MG/ML VIAL. ONE; +methylPREDNISolone ACETATE 80 MG/ML VIAL. ONE
--- NOTE | 2020-04-09 10:58 | PDOC ---
Progress Note - Pain Clinic Date of Service: DOS: DATE: 04/09/20 TIME: 10:53 Diagnosis: Dx: Lumbar radiculopathy with lumbar degenerative disc disease lumbar spondylosis and lumbar postlaminectomy syndrome Cervical radiculopathy with cervical degenerative disc disease Myofascial pain Bilateral knee joint pain History or Present Illness: HPI: 49-year-old female returns to follow-up status post bilateral knee injections as well as lumbar epidural steroid injections in the past and is recently had lumbar laminectomy August 2019 with good results as well as knee replacement in June 2019 on the left. Patient reports he was doing fairly well after the loc yahir but the pain is returning in her low back now radiating the posterior gluteus posterior thighs bilaterally with some swelling in the right foot as well patient reports that she is seeing her surgeon who is not recommending any further surgeries she had L3-4 and L4-5 laminectomies in August 2019. Patient reports the pain is increasing with walking standing changing positions better with sitting or laying down generally can awaken her from sleep at night but over the past few weeks it has begun to every 4-5 hours pain in the low back especially the right leg patient reports pain is a 10 on scale 10 is worse over the past week 8 on average, 5 its least and is a 6 today. Patient reports burning cramping the low back aching sharp shooting and tight in the lower extremities. Patient reports no loss of motor function but significant fatigability the right leg with walking and standing. Physical Exam: VS: Blood pressure is 115/65 pulse 81 respirations 20 temperature 98.3 F height is 5 foot 4 inches weight is 259 pounds PE: PHYSICAL EXAMINATION: GENERAL: The patient is awake, alert, oriented, appropriate, very pleasant demeanor HEENT: Shows normocephalic, atraumatic. Extraocular movements are intact and s ymmetrical. Oral cavity: Mucous membranes moist and pink. Dentition is intact. NECK: Shows anterior throat supple without palpable lymphadenopathy noted. Swallow reflex symmetrical. CHEST: Shows normal on inspection. Breath sounds are clear bilaterally, no rales rhonchi or wheezes auscultated. HEART: Shows S1, S2 clear. No murmurs auscultated. ABDOMEN: Soft, nontender, nondistended, obese. No palpable organomegaly is noted. No rebound or guarding demonstrated. BACK: Shows spine grossly in the midline. Normal-appearing cervical lordotic curvature. There is slightly increased thoracic kyphosis, some minor flattening of the lumbar lordotic curvature. Well-healed surgical scar in the midline in the lumbar distribution is noted. Lumbar paraspinous muscles show symmetrical on inspection, on palpation shows some moderate tenderness diffusely throughout the upper, middle and lower distribution of the paraspinous muscles bilaterally and also into the lower thoracic paraspinous musculature, firm and tender, but without specific trigger points, without radiation of pain. The patient has good rotational motion of the lumbar spine, both laterally as well as extension and flexion without significant difficulty. No tenderness over the spinous processes, sacrum or sacroiliac regions. EXTREMITIES: Lower extremities show deep tendon reflexes 2+ in the patellar and tendo calcaneus tendons. Motor exam is 4 on a scale of 5 with right dorsiflexion, extension, quadriceps and hamstring flexion and 5/5 on the left. Peripheral pulses are 1+ posterior tibial. No peripheral edema is noted bilaterally. Lower extremities are warm and dry to touch, equal in color and appearance. SKIN: Shows warm and dry, good turgor. No edema. No sores, rashes or bruising throughout. Procedure: Procedure: Options were discussed with the patient. Patient will chart reviews her current medication regimen updated current review of systems updated today as well. We will proceed with a lumbar epidural steroid injection today with fluoroscopic guidance. Risks were discussed including but not limited to: Bleeding, infection, possibility of epidural hematoma and subsequent neurological compromise, dural puncture, headaches, spinal cord and/or nerve damage, side e ffects of steroid medication, and poor results regarding pain control. Patient understands and wished to proceed. Patient return to clinic in approximate 2 weeks for follow-up was counseled as return of activity level and side effects to be aware of. Medication Injected: Med Injected: Procedure is lumbar epidural steroid injection under local anesthetic using sterile prep and drape at the L5-S1 level using C-arm fluoroscopic guidance in both AP and lateral views medications injected is 120 mg Depo-Medrol + 10 mL preservative-free normal saline and 2 mL contrast- condition at discharge is stable patient tolerated procedure well had no complications. Condition at Discharge: Condition at Discharge: Condition at discharge stable, patient tolerated procedure well and had no complications. GINO CACERES MD Apr 09, 2020 10:57
--- NOTE | 2020-04-09 10:58 | PDOC4 ---
PROCEDURE Procedure Patient was consented for lumbar epidural steroid injection. Risks were dis cussed including but not limited to: Bleeding, infection, possibility of epidural hematoma and subsequent neurological compromise, dural puncture, headaches, spinal cord and/or nerve damage, side effects of steroid medication, and poor results regarding pain control. Patient understands and wished to proceed. Procedure is lumbar epidural steroid injection under local anesthetic using sterile prep and drape at the L5-S1 level using C-arm fluoroscopic guidance in both AP and lateral views medications injected is 120 mg Depo-Medrol + 10 mL preservative-free normal saline and 2 mL contrast- condition at discharge is stable patient tolerated procedure well had no complications. GINO CACERES MD Apr 09, 2020 10:58
== END | disposition home or self-care (01) ==
LOC: PNCL 09:46
PROVIDERS: ATTEND Anesthesiology
DX: M51.16 Intervertebral disc disorders with radiculopathy, lumbar region (principal); M47.26 Other spondylosis with radiculopathy, lumbar region; M96.1 Postlaminectomy syndrome, not elsewhere classified; M50.10 Cervical disc disorder with radiculopathy, unspecified cervical region; M17.0 Bilateral primary osteoarthritis of knee; M79.10 Myalgia, unspecified site; E78.00 Pure hypercholesterolemia, unspecified; I10 Essential (primary) hypertension; J44.9 Chronic obstructive pulmonary disease, unspecified; K21.9 Gastro-esophageal reflux disease without esophagitis; E66.9 Obesity, unspecified; F41.9 Anxiety disorder, unspecified; F32.9 Major depressive disorder, single episode, unspecified; Z87.891 Personal history of nicotine dependence; Z79.899 Other long term (current) drug therapy; Z98.890 Other specified postprocedural states; Z88.8 Allergy status to other drugs, medicaments and biological substances; Z72.89 Other problems related to lifestyle
CPT/HCPCS: 62323; J1030; J1040; Q9965

== ENCOUNTER → 2020-04-30 | Outpatient (CLI) | payer MEDICAID ==
[~2020-04-30] MED LIST changes: -BUPR150T21 PO; +BUPR150T7 PO; -DICY20TA3 PO; -ONDA4TAB12 PO
--- NOTE | 2020-04-30 11:41 | PDOC ---
Progress Note - Pain Clinic Date of Service: DOS: DATE: 04/30/20 TIME: 11:37 Diagnosis: Dx: Lumbar radiculopathy with lumbar degenerative disc disease lumbar spondylosis and post lumbar laminectomy syndrome Cervical radiculopathy with degenerative disc disease Myofascial pain Bilateral knee joint pain with osteoarthritis History or Present Illness: HPI: 49-year-old female returns to follow-up status post lumbar epidural steroid traction x1 April 09, 2020. Patient reports only minimal decrease in pain in the low back and bilateral lower extremities now the pain is increasing in the low back bilateral posterior gluteus posterior thighs as well as the mid back as well patient reports is a 10 on scale 10 is worse over the past week 9 on average 8 its least and is an 8 today. Patient reports it is an aching pain that sharp and shooting tight in the low back cramping and stabbing can be severe and unbearable at times worse with walking standing changing positions better with sitting or laying down. Patient reports awaken her from sleep about every 2-3 hours. She reports no loss of motor function no bowel or bladder incontinence but still significant pain in the low back. We had discussed a spinal cord stimulator with her briefly on her last visit we will give her some information regarding this today as well as this has been recommendation from her neurosurgeon also. Physical Exam: VS: Blood pressure is 146/70 pulse 81 respirations 16 temperature 97.9 F height is 5 feet 4 inches, weight is 263 pounds PE: PHYSICAL EXAMINATION: GENERAL: The patient is awake, alert, oriented, appropriate, very pleasant demeanor HEENT: Shows normocephalic, atraumatic. Extraocular movements are intact and symmetrical. Oral cavity: Mucous membranes moist and pink. Dentition is intact. NECK: Shows anterior throat supple without palpable lymphadenopathy noted. Swallow reflex symmetrical. CHEST: Shows normal on inspection. Breath sounds are clear bilaterally, no rales or rhonchi. HEART: Shows S1, S2 clear. No murmurs auscultated. ABDOMEN: Soft, nontender, nondistended, obese. No palpable organomegaly is noted. BACK: Shows spine grossly in the midline. Normal-appearing cervical lordotic curvature. There is slightly increased thoracic kyphosis, some flattening of the lumbar lordotic curvature with well-healed midline surgical scarring noted. Lumbar paraspinous muscles show symmetrical on inspection, on palpation shows some moderate tenderness diffusely throughout the upper, middle and lower distribution of the paraspinous muscles without specific trigger points, without radiation of pain. The patient has good rotational motion of the lumbar spine, both laterally as well as extension and flexion without significant difficulty. EXTREMITIES: Lower extremities show deep tendon reflexes 2+ in the patellar and tendo calcaneus tendons. Motor exam is 4 on a scale of 5 with right dorsiflexion, extension, quadriceps and hamstring flexion and 5/5 on the left. Peripheral pulses are 1+ posterior tibial. No peripheral edema is noted bilaterally. Lower extremities are warm and dry to touch, equal in color and appearance. SKIN: Shows warm and dry, good turgor. No edema. No sores, rashes or bruising throughout. Procedure: Procedure: Options discussed with the patient. Patient chart reviews her current medication regimen updated current review of systems updated today as well. We will proceed with a second in the series lumbar epidural steroid traction today with fluoroscopic guidance. Risks were discussed including but not limited to: Bleeding, infection, possibility of epidural hematoma and subsequent neurological compromise, dural puncture, headaches, spinal cord and/or nerve damage, side effects of steroid medication, and poor results regarding pain control. Patient understands and wished to proceed. Patient return to clinic in approximate 2 weeks for follow-up, was counseled as to return appointment activity level and side effects to be aware of. Medication Injected: Med Injected: Procedure is lumbar epidural steroid injection under local anesthetic using sterile prep and drape at the L5-S1 level using C-arm fluoroscopic guidance in both AP and lateral views medications injected is 120 mg Depo-Medrol + 10 mL preservative-free normal saline and 2 mL contrast- condition at discharge is stable patient tolerated procedure well had no complications. Condition at Discharge: Condition at Discharge: Condition at discharge stable, patient tolerated the procedure well and had no complications. GINO CACERES MD Apr 30, 2020 11:41
--- NOTE | 2020-04-30 11:41 | PDOC4 ---
PROCEDURE Procedure Patient was consented for lumbar epidural steroid injection. Risks were dis cussed including but not limited to: Bleeding, infection, possibility of epidural hematoma and subsequent neurological compromise, dural puncture, headaches, spinal cord and/or nerve damage, side effects of steroid medication, and poor results regarding pain control. Patient understands and wished to proceed. Procedure is lumbar epidural steroid injection under local anesthetic using sterile prep and drape at the L5-S1 level using C-arm fluoroscopic guidance in both AP and lateral views medications injected is 120 mg Depo-Medrol + 10 mL preservative-free normal saline and 2 mL contrast- condition at discharge is stable patient tolerated procedure well had no complications. GINO CACERES MD Apr 30, 2020 11:41
== END | disposition home or self-care (01) ==
LOC: PNCL 10:22
PROVIDERS: ATTEND Anesthesiology
DX: M51.16 Intervertebral disc disorders with radiculopathy, lumbar region (principal); M47.26 Other spondylosis with radiculopathy, lumbar region; M50.10 Cervical disc disorder with radiculopathy, unspecified cervical region; M17.0 Bilateral primary osteoarthritis of knee; M96.1 Postlaminectomy syndrome, not elsewhere classified; M79.10 Myalgia, unspecified site; E78.00 Pure hypercholesterolemia, unspecified; I10 Essential (primary) hypertension; J44.9 Chronic obstructive pulmonary disease, unspecified; E66.9 Obesity, unspecified; F41.9 Anxiety disorder, unspecified; F32.9 Major depressive disorder, single episode, unspecified; Z98.51 Tubal ligation status; Z98.890 Other specified postprocedural states; Z79.899 Other long term (current) drug therapy; Z87.891 Personal history of nicotine dependence; Z88.8 Allergy status to other drugs, medicaments and biological substances; Z72.89 Other problems related to lifestyle
CPT/HCPCS: 62323; J1030; J1040; Q9965

== ENCOUNTER → 2020-08-05 | Outpatient (CLI) | payer MEDICAID ==
[~2020-08-05] MED LIST changes: +BUPR150T21 PO; -BUPR150T7 PO
--- NOTE | 2020-08-05 12:18 | PDOC4 ---
PROCEDURE Procedure Patient was consented for lumbar epidural steroid injection. Risks were dis cussed including but not limited to: Bleeding, infection, possibility of epidural hematoma and subsequent neurological compromise, dural puncture, headaches, spinal cord and/or nerve damage, side effects of steroid medication, and poor results regarding pain control. Patient understands and wished to proceed. Procedure is lumbar epidural steroid injection under local anesthetic using sterile prep and drape at the L5-S1 level using C-arm fluoroscopic guidance in both AP and lateral views medications injected is 120 mg Depo-Medrol +10mL preservative-free normal saline and 2 mL contrast- condition at discharge is stable patient tolerated procedure well had no complications. GINO CACERES MD Aug 05, 2020 12:18
--- NOTE | 2020-08-05 12:18 | PDOC ---
Progress Note - Pain Clinic Date of Service: DOS: DATE: 08/05/20 TIME: 12:14 Diagnosis: Dx: Lumbar radiculopathy with lumbar degenerative disc disease and lumbar spondylosis with lumbar postlaminectomy syndrome Cervical radiculopathy with cervical degenerative disease Myofascial pain Bilateral knee joint pain status post total knee arthroplasties bilaterally History or Present Illness: HPI: 50-year-old female returns for follow-up status post lumbar epidural steroid injection x2. Patient reports about 25% improvement overall in the low back bilateral lower extremity pain pain still radiating into the lower extremities posterior gluteus posterior thighs posterior calves and significant pain in her left knee she is recently been evaluated with her orthopedic surgeon we are re commending post total knee arthroplasty that she undergo genicular block on the left side as the pain is fairly significant patient reports her pain is a 10 on scale 10 is worse over the past week 8 on average 6 its least and is an 8 today patient describes as aching and sharp tight shooting radiating constant in the back as well as the legs especially in the left knee with weightbearing but also awakens her from sleep at night with the left knee pain patient reports no new motor or sensory deficits no bowel or bladder incontinence. Physical Exam: VS: Blood pressure is 135/65 pulse 89 respiration 22 temperature is 94 F height is 5 feet 4 inches, weight 269 pounds PE: PHYSICAL EXAMINATION: GENERAL: The patient is awake, alert, oriented, appropriate, very pleasant demeanor HEENT: Shows normocephalic, atraumatic. Extraocular movements are intact and symmetrical. Oral cavity: Mucous membranes moist and pink. NECK: Shows anterior throat supple without palpable lymphadenopathy noted. Swallow reflex symmetrical. CHEST: Shows normal on inspection. Breath sounds are clear bilaterally. HEART: Shows S1, S2 clear. No murmurs auscultated. ABDOMEN: Soft, nontender, nondistended, obese. No palpable organomegaly is noted. No rebound or guarding demonstrated. BACK: Shows spine grossly in the midline. Normal-appearing cervical lordotic c urvature. There is slightly increased thoracic kyphosis, some minor flattening of the lumbar lordotic curvature. Lumbar paraspinous muscles show symmetrical on inspection, on palpation shows some moderate tenderness diffusely throughout the upper, middle and lower distribution of the paraspinous muscles without specific trigger points, without radiation of pain. The patient has good rotational motion of the lumbar spine, both laterally as well as extension and flexion without significant difficulty. EXTREMITIES: Lower extremities show deep tendon reflexes 2+ in the patellar and tendo calcaneus tendons. Motor exam is 4 on a scale of 5 with right dorsiflexion, extension, quadriceps and hamstring flexion and 5/5 on the left. Peripheral pulses are 1+ posterior tibial. No peripheral edema is noted bilaterally. Lower extremities are warm and dry to touch, equal in color and appearance. Patient's knees show well-healed surgical scarring bilaterally, with palpation just with significant tenderness in the left knee with medial collateral ligament as well as lateral collateral ligament in the patellar ligament inferiorly as well with direct palpation with moderate pressure very significant pain. Range of motion shows good range of motion without ratcheting or crepitus bilaterally. SKIN: Shows warm and dry, good turgor. No edema. No sores, rashes or bruising throughout. Procedure: Procedure: Options were discussed with patient. Patient chart was reviewed as her current medication regimen updated current review of systems updated today as well. We will proceed with a third in the series lumbar epidural steroid injection stable fluoroscopic guidance. Risks were discussed including but not limited to: Bleeding, infection, possibility of epidural hematoma and subsequent neurological compromise, dural puncture, headaches, spinal cord and/or nerve damage, side effects of steroid medication, and poor results regarding pain control. Patient understands and wished to proceed. Patient will return to the clinic in approximate 2 weeks for follow-up, was counseled as to return appointment activity level and side effects to be aware of. We will preauthorize patient for left-sided genicular block as well for the chronic postoperative left knee pain status post total knee arthroplasty. Medication Injected: Med Injected: Procedure is lumbar epidural steroid injection under local anesthetic using sterile prep and drape at the L5 S1 level using C-arm fluoroscopic guidance in both AP and lateral views medications injected is 120 mg Depo-Medrol +10mL preservative-free normal saline and 2 mL contrast- condition at discharge is stable patient tolerated procedure well had no complications. Condition at Discharge: Condition at Discharge: Condition at discharge stable, patient tolerated procedure well and had no c omplications. GINO CACERES MD Aug 05, 2020 12:18
== END | disposition home or self-care (01) ==
LOC: PNCL 11:15
PROVIDERS: ATTEND Anesthesiology
DX: M51.16 Intervertebral disc disorders with radiculopathy, lumbar region (principal); M47.26 Other spondylosis with radiculopathy, lumbar region; M96.1 Postlaminectomy syndrome, not elsewhere classified; M50.10 Cervical disc disorder with radiculopathy, unspecified cervical region; M79.18 Myalgia, other site; M25.561 Pain in right knee; M25.562 Pain in left knee; E78.00 Pure hypercholesterolemia, unspecified; I10 Essential (primary) hypertension; J44.9 Chronic obstructive pulmonary disease, unspecified; K21.9 Gastro-esophageal reflux disease without esophagitis; E66.9 Obesity, unspecified; M19.90 Unspecified osteoarthritis, unspecified site; F41.9 Anxiety disorder, unspecified; F32.9 Major depressive disorder, single episode, unspecified; Z87.891 Personal history of nicotine dependence; Z98.51 Tubal ligation status; Z98.890 Other specified postprocedural states; Z79.899 Other long term (current) drug therapy; Z88.1 Allergy status to other antibiotic agents; Z88.8 Allergy status to other drugs, medicaments and biological substances; Z96.653 Presence of artificial knee joint, bilateral
CPT/HCPCS: 62323; J1030; J1040; Q9965

== ENCOUNTER 2020-08-15 07:04 | Emergency (ER) | payer MEDICAID ==
[~2020-08-15] VITALS: Ht 167.6 cm; Wt 110.0 kg
[~2020-08-15 07:04] MED LIST changes: -IOHEXOL 180 MG/ML 10 ML VIAL. ONE; -methylPREDNISolone ACETATE 40 MG/ML VIAL. ONE; -methylPREDNISolone ACETATE 80 MG/ML VIAL. ONE
--- NOTE | 2020-08-15 07:29 | ED.ADGEN ---
Past Medical History Past Medical History: Anxiety, Asthma, COPD, GERD Additional Past Medical Histor: HX HEP C. Past Surgical History: Knee Replacement, Other Additional Past Surgical Histo: BACK SX. Smoking Status: Former Smoker Alcohol Use: Occasionally General Adult EDM: Chief Complaint: MULTIPLE COMPLAINTS HPI: HPI: Patient is a 50 year old female coming in for vomiting and diarrhea started just prior to arrival. After vomiting patient states she feels sharp left-sided chest pain that radiates to her back. Denies any recent travel, antibiotics or undercooked foods. No one in her household is ill. Ate chicken and spinach last night which had been sitting in the microwave all day. Denies any bilious or bloody emesis. History of hypertension Review of Systems: Review of Systems: All other systems within normal limits except for as noted in the HPI Current Medications: Current Medications Medications (Trade) Dose Ordered Sig/Rosaura Start Time Stop Time Status Last Admin Dose Admin Fentanyl Citrate (Fentanyl 2ml Vial) 75 mcg 1X ONCE 08/15/20 07:30 08/15/20 07:31 DC 08/15/20 07:49 75 MCG Info (CONTRAST GIVEN -- Rx MONITORING) 1 each PRN DAILY PRN 08/15/20 10:30 08/17/20 10:29 Iohexol (Omnipaque 350 Mg/ml) 90 ml 1X ONCE 08/15/20 10:30 08/15/20 10:31 DC Ondansetron HCl (Zofran) 4 mg 1X ONCE 08/15/20 07:30 08/15/20 07:31 DC 08/15/20 07:49 4 MG Sodium Chloride 1,000 ml @ 1,000 mls/hr 1X ONCE 08/15/20 08:00 08/15/20 08:59 DC 08/15/20 07:48 1,000 MLS/HR Allergies: Allergies: Allergies Coded Allergies Type Severity Reaction Last Updated Verified aspirin Allergy Severe Anaphylaxis 01/15/20 Yes ibuprofen Allergy Severe Anaphylaxis 01/15/20 Yes cyclobenzaprine Adverse Reaction Mild 01/15/20 Yes Physical Exam: PE: Constitutional: Well developed, well nourished, mild acute distress, non-toxic appearance. [] HENT: Normocephalic, atraumatic, bilateral external ears normal, nose normal. [] Eyes: PERRLA, conjunctiva normal, no discharge. [] Neck: No rigidity, supple, no stridor. [] Cardiovascular: Regular rate and rhythm, brisk cap refill [] Lungs & Thorax: Non labored symmetric respirations, no tachypnea or respiratory distress [] Abdomen: Soft, nondistended, no focal tenderness, no guarding. Skin: Warm, dry, no erythema, no rash. [] Back: Unremarkable Extremities: No deformities, range of motion grossly intact, no lower extremity edema [] Neurologic: Alert and oriented X 3, no focal deficits noted. [] Psychologic: Affect normal, judgement normal, mood normal. [] Current Patient Data: Labs: Laboratory Tests Test 08/15/20 07:35 08/15/20 09:40 08/15/20 12:18 White Blood Count 22.7 x10^3/uL (4.0-11.0) H Red Blood Count 5.01 x10^6/uL (3.50-5.40) Hemoglobin 15.7 g/dL (12.0-15.5) H Hematocrit 46.1 % (36.0-47.0) Mean Corpuscular Volume 92 fL (79-100) Mean Corpuscular Hemoglobin 31 pg (25-35) Mean Corpuscular Hemoglobin Concent 34 g/dL (31-37) Red Cell Distribution Width 13.9 % (11.5-14.5) Platelet Count 439 x10^3/uL (140-400) H Neutrophils (%) (Auto) 81 % (31-73) H Lymphocytes (%) (Auto) 11 % (24-48) L Monocytes (%) (Auto) 6 % (0-9) Eosinophils (%) (Auto) 1 % (0-3) Basophils (%) (Auto) 0 % (0-3) Neutrophils # (Auto) 18.5 x10^3/uL (1.8-7.7) H Lymphocytes # (Auto) 2.5 x10^3/uL (1.0-4.8) Monocytes # (Auto) 1.3 x10^3/uL (0.0-1.1) H Eosinophils # (Auto) 0.3 x10^3/uL (0.0-0.7) Basophils # (Auto) 0.1 x10^3/uL (0.0-0.2) Segmented Neutrophils % 55 % (35-66) Band Neutrophils % 18 % (0-9) H Lymphocytes % 21 % (24-48) L Monocytes % 2 % (0-10) Eosinophils % 1 % (0-5) Metamyelocytes % 2 % (0-0) H Myelocytes % 1 % (0-0) H Platelet Estimate Increased (ADEQUATE) D-Dimer (Irina) 2.38 ug/mlFEU (0.00-0.50) H Sodium Level 142 mmol/L (136-145) Potassium Level 4.6 mmol/L (3.5-5.1) Chloride Level 106 mmol/L (98-107) Carbon Dioxide Level 23 mmol/L (21-32) Anion Gap 13 (6-14) Blood Urea Nitrogen 26 mg/dL (7-20) H Creatinine 1.0 mg/dL (0.6-1.0) Estimated GFR (Cockcroft-Gault) 58.5 BUN/Creatinine Ratio 26 (6-20) H Glucose Level 104 mg/dL (70-99) H Calcium Level 8.6 mg/dL (8.5-10.1) Total Bilirubin 0.6 mg/dL (0.2-1.0) Aspartate Amino Transferase (AST) 18 U/L (15-37) Alanine Aminotransferase (ALT) 28 U/L (14-59) Alkaline Phosphatase 61 U/L (46-116) Troponin I Quantitative < 0.017 ng/mL (0.000-0.055) Total Protein 6.9 g/dL (6.4-8.2) Albumin 3.6 g/dL (3.4-5.0) Albumin/Globulin Ratio 1.1 (1.0-1.7) Lipase 61 U/L (73-393) L Urine Collection Type Void Urine Color Yellow Urine Clarity Clear Urine pH 5.5 (<5.0-8.0) Urine Specific [place] >=1.030 (1.000-1.030) Urine Protein Negative mg/dL (NEG-TRACE) Urine Glucose (UA) Negative mg/dL (NEG) Urine Ketones (Stick) Trace mg/dL (NEG) Urine Blood Trace (NEG) Urine Nitrite Negative (NEG) Urine Bilirubin Negative (NEG) Urine Urobilinogen Dipstick 0.2 mg/dL (0.2 mg/dL) Urine Leukocyte Esterase Negative (NEG) Urine RBC 1-2 /HPF (0-2) Urine WBC 1-4 /HPF (0-4) Urine Squamous Epithelial Cells Few /LPF Urine Bacteria Few /HPF (0-FEW) Urine Hyaline Casts Few /HPF Urine Mucus Mod /LPF Urine Opiates Screen Neg (NEG) Urine Methadone Screen Neg (NEG) Urine Barbiturates Neg (NEG) Urine Phencyclidine Screen Neg (NEG) Urine Amphetamine/Methamphetamine Neg (NEG) Urine Benzodiazepines Screen Pos (NEG) Urine Cocaine Screen Neg (NEG) Urine Cannabinoids Screen Neg (NEG) Urine Ethyl Alcohol Neg (NEG) Laboratory Tests 08/15/20 07:35 Laboratory Tests 08/15/20 09:40 Vital Signs: Vital Signs Date Time Temp Pulse Resp B/P (MAP) Pulse Ox O2 Delivery O2 Flow Rate FiO2 08/15/20 10:46 99 18 141/70 (93) 95 Room Air 08/15/20 07:07 98.4 98.4 EKG: EKG: [] Heart Score: C/O Chest Pain: Yes HEART Score for Chest Pain: HEART Score for Chest Pain Response (Comments) Value History Slighlty/Non-Suspicious 0 ECG Normal 0 Age >45 - < 65 1 Risk Factors 1 or 2 Risk Factors 1 Total 2 Risk Factors: Risk Factors: DM, Current or recent (<one month) smoker, HTN, HLP, family history of CAD, obesity. Risk Scores: Score 0 - 3: 2.5% MACE over next 6 weeks - Discharge Home Score 4 - 6: 20.3% MACE over next 6 weeks - Admit for Clinical Observation Score 7 - 10: 72.7% MACE over next 6 weeks - Early Invasive Strategies Radiology/Procedures: Radiology/Procedures: [facility] [address] [place] [address] IMAGING REPORT Signed PATIENT: JAY LORD ACCOUNT: [id number] : 1970 LOCATION: ER AGE: 50 SEX: F EXAM STATUS: REG ER ORD. PHYSICIAN: TOMAS IBARRA MD REASON: chest and abd pain, aorta PROCEDURE: CT ANGIO CHEST ABD PELVIS Site ID: [id number] EXAMINATION: CTA CHEST_ABDOMEN_AND PELVIS. Technique: Axial images with coronal and sagittal reconstructions with MIP technique are performed of chest, abdomen and pelvis performed without and with angiogram protocol. 90 mL of the Isovue-370 administered intravenously. One or more of the following radiation dose reduction techniques was used: automated exposure control, adjustment of mA and/or KV according to patient size, and/or utilization of iterative reconstruction technique. HISTORY: 50 years Female Reason: chest and abd pain, aorta. COMPARISON: None. FINDINGS: CTA chest: The unenhanced phase demonstrate no evidence of intramural hematoma. After contrast administration normal enhancement in the thoracic aorta is seen with no dissection. There is also normal caliber, no aneurysm. The pulmonary arteries are enhanced and appear grossly unremarkable. The heart size is normal. There is no mediastinal mass or lymphadenopathy. No hilar or axillary lymphadenopathy. No pleural or pericardial effusion. Note is made of symmetric bilateral breast implants in place. The lungs demonstrate no significant consolidation, mass or suspicious nodule. The osseous structures demonstrate mild degenerative changes. CTA ABDOMEN and pelvis: The unenhanced phase demonstrate no intramural hematoma. The liver density is slightly decreased the compatible with the mild the degree of fatty infiltration. The spleen is not enlarged. The pancreas, adrenals, and the gallbladder appear unremarkable. The kidneys have symmetric enhancement. There is no hydronephrosis. The abdominal aorta is normal in caliber and in enhancement. No aneurysm or dissection. The urinary bladder appear unremarkable. There are enhancing masses seen within the uterus, in the fundus measuring 4.4 cm and the posterior the uterine body measuring 1.5 cm. These are from likely related to fibroids. The bowel loops demonstrate the no dilatation or evidence of obstruction. The appendix is normal. The osseous structures demonstrate chronic appearing compression fracture of the L2 vertebral body. IMPRESSION: CTA chest: No significant abnormality. CTA abdomen and pelvis: 1. No significant vascular abnormality. 2. Enhancing uterine masses up to 4.4 cm probably related to fibroids. 3. Mild hepatic steatosis. Electronically signed by: Juliette Oviedo MD (08/15/2020 12:36 PM) [id number] DICTATED and SIGNED BY: JULIETTE OVIEDO MD DATE: 08/15/20 [id number] [] Course & Med Decision Making: Course & Med Decision Making Pertinent Labs and Imaging studies reviewed. (See chart for details) [] Dragon Disclaimer: Dragon Disclaimer: This electronic medical record was generated, in whole or in part, using a voice recognition dictation system. Departure Departure Impression: Primary Impression: Nausea, vomiting, and diarrhea Disposition: HOME / SELF CARE / HOMELESS Condition: STABLE Referrals: NON,STAFF (PCP) Patient Instructions: Diet for Diarrhea, Adult Scripts Ondansetron (ONDANSETRON ODT) 4 Mg Tab.rapdis 1 TAB PO PRN Q6-8HRS PRN for NAUSEA, #16 TAB Prov: TOMAS IBARRA MD 08/15/20 Dicyclomine Hcl (DICYCLOMINE HCL) 20 Mg Tablet 1 TAB PO TID PRN for ABDOMINAL PAIN for 5 Days, #15 TAB 1 Refill Prov: TOMAS IBARRA MD 08/15/20 TOMAS IBARRA MD Aug 15, 2020 07:29
[2020-08-15] MEDS ORDERED: fentaNYL PF VIAL 100 MCG/2 ML VIAL IVP ONE (07:30)
[2020-08-15] MEDS ORDERED: ONDANSETRON PF 4 MG/2 ML VIAL. IVP ONE (07:30)
[2020-08-15 07:50] LABS: BASO # 0.1 x10^3/uL (0.0-0.2); BASO % 0 % (0-3); EOS # 0.3 x10^3/uL (0.0-0.7); EOS % 1 % (0-3); HEMATOCRIT 46.1 % (36.0-47.0); HEMOGLOBIN 15.7 g/dL (12.0-15.5); LYMPH # 2.5 x10^3/uL (1.0-4.8); LYMPH % 11 % (24-48); MEAN CORPUSCULAR HEMOGLOBIN 31 pg (25-35); MEAN CORPUSCULAR HGB CONC 34 g/dL (31-37); MEAN CORPUSCULAR VOLUME 92 fL (79-100); MONO # 1.3 x10^3/uL (0.0-1.1); MONO % 6 % (0-9); NEUT # 18.5 x10^3/uL (1.8-7.7); NEUT % 81 % (31-73); PLATELET COUNT 439 x10^3/uL (140-400); RED BLOOD COUNT 5.01 x10^6/uL (3.50-5.40); RED CELL DISTRIBUTION WIDTH 13.9 % (11.5-14.5); WHITE BLOOD COUNT 22.7 x10^3/uL (4.0-11.0)
[2020-08-15] MEDS ORDERED: IV NORMAL SALINE 1000ML BAG 1,000 ML IV ONE (08:00)
[2020-08-15 09:46] LABS: % BANDS 18 % (0-9); % EOS 1 % (0-5); % LYMPHS 21 % (24-48); % METAS 2 % (0-0); % MONOS 2 % (0-10); % MYELOS 1 % (0-0); % SEGS 55 % (35-66); PLT ESTIMATE INCREASED (ADEQUATE)
[2020-08-15 09:56] LABS: CALCIUM 8.6 mg/dL (8.5-10.1); GFR 58.5; POTASSIUM 4.6 mmol/L (3.5-5.1)
[2020-08-15 10:02] LABS: ALBUMIN 3.6 g/dL (3.4-5.0); ALBUMIN/GLOBULIN RATIO 1.1 (1.0-1.7); TOTAL BILIRUBIN 0.6 mg/dL (0.2-1.0); TOTAL PROTEIN 6.9 g/dL (6.4-8.2)
[2020-08-15] MEDS ORDERED: IOHEXOL 350 MG/ML 100 ML VIAL. IV ONE (10:30)
[2020-08-15] MEDS ORDERED: CONTRAST GIVEN. MC PRN (10:30)
[2020-08-15 12:31] LABS: BILIRUBIN,URINE NEGATIVE (NEG); CLARITY,URINE CLEAR; COLOR,URINE YELLOW; NITRITE,URINE NEGATIVE (NEG); PH,URINE 5.5 (<5.0-8.0); PROTEIN,URINE NEGATIVE (NEG-TRACE); UROBILINOGEN,URINE 0.2 mg/dL (0.2 mg/dL)
[2020-08-15 12:38] LABS: AMPHETAMINE/METHAMPHETAMINE NEG (NEG); BARBITURATES NEG (NEG); BENZODIAZEPINES POS (NEG); CANNABINOIDS NEG (NEG); COCAINE NEG (NEG); METHADONE NEG (NEG); OPIATES NEG (NEG); PHENCYCLIDINE NEG (NEG)
--- NOTE | 2020-08-15 12:39 | RAD ---
Site ID: [id number] EXAMINATION: CTA CHEST_ABDOMEN_AND PELVIS. Technique: Axial images with coronal and sagittal reconstructions with MIP technique are performed of chest, abdomen and pelvis performed without and with angiogram protocol. 90 mL of the Isovue-370 adm inistered intravenously. One or more of the following radiation dose reduction techniques was used: automated exposure control , adjustment of mA and/or KV according to patient size, and/or utilization of iterative reconstructio n technique. HISTORY: 50 years Female Reason: chest and abd pain, aorta. COMPARISON: None. FINDINGS: CTA chest: The unenhanced phase demonstrate no evidence of intramural hematoma. After contrast administration no rmal enhancement in the thoracic aorta is seen with no dissection. There is also normal caliber, no a neurysm. The pulmonary arteries are enhanced and appear grossly unremarkable. The heart size is normal. There is no mediastinal mass or lymphadenopathy. No hilar or axillary lymph adenopathy. No pleural or pericardial effusion. Note is made of symmetric bilateral breast implants in place. The lungs demonstrate no significant consolidation, mass or suspicious nodule. The osseous structures demonstrate mild degenerative changes. CTA ABDOMEN and pelvis: The unenhanced phase demonstrate no intramural hematoma. The liver density is slightly decreased the compatible with the mild the degree of fatty infiltration. The spleen is not enlarged. The pancreas, adrenals, and the gallbladder appear unremarkable. The kidneys have symmetric enhancement. There is n o hydronephrosis. The abdominal aorta is normal in caliber and in enhancement. No aneurysm or dissection. The urinary bladder appear unremarkable. There are enhancing masses seen within the uterus, in the fundus measuring 4.4 cm and the posterior t he uterine body measuring 1.5 cm. These are from likely related to fibroids. The bowel loops demonstrate the no dilatation or evidence of obstruction. The appendix is normal. The osseous structures demonstrate chronic appearing compression fracture of the L2 vertebral body. IMPRESSION: CTA chest: No significant abnormality. CTA abdomen and pelvis: 1. No significant vascular abnormality. 2. Enhancing uterine masses up to 4.4 cm probably related to fibroids. 3. Mild hepatic steatosis. Electronically signed by: Abdi Oviedo MD (08/15/2020 12:36 PM) [id number]
[2020-08-15 12:45] LABS: BACTERIA,URINE FEW /HPF (0-FEW); HYALINE CASTS, URINE FEW /HPF
[2020-08-15] MEDS ORDERED: DICY20TA3 PO (12:53)
[2020-08-15] MEDS ORDERED: ONDA4TAB12 PO (12:53)
[2020-08-15 13:19] VITALS: BP 100/59
--- NOTE | 2020-08-15 17:02 | EKG ---
[facility] [address] [place] [address] Test Date: 2020-08-15 Test Time: 07:11:15 Pat Name: JAY LORD Department: Room: Gender: F Clinical Research Coordinator: : 1970 Requested By: TOMAS IBARRA Order Number: [id number] Reading MD: Measurements Intervals [place] Rate: 102 P: 64 CO: 132 QRS: -5 QRSD: 80 T: 43 QT: 324 QTc: 426 Interpretive Statements SINUS TACHYCARDIA LEFTWARD AXIS QRS(T) CONTOUR ABNORMALITY CONSIDER INFERIOR MYOCARDIAL DAMAGE POSSIBLY ABNORMAL ECG RI6.01 No previous ECG available for comparison
== END 2020-08-15 13:24 | disposition home or self-care (01) ==
LOC: ER 07:04
DX: R11.2 Nausea with vomiting, unspecified (principal); R19.7 Diarrhea, unspecified; R07.89 Other chest pain; J44.9 Chronic obstructive pulmonary disease, unspecified; K21.9 Gastro-esophageal reflux disease without esophagitis; Z87.891 Personal history of nicotine dependence; Z88.6 Allergy status to analgesic agent; Z88.8 Allergy status to other drugs, medicaments and biological substances
CPT/HCPCS: 36415; 71275; 74174; 80053; 80307; 81001; 83690; 84484; 85007; 85025; 85379; 93005; 96361; 96374; 96375; 99285; J2405; J3010; J7030

== ENCOUNTER → 2020-08-27 | Outpatient (CLI) | payer MEDICAID ==
[2020-08-15 13:19] VITALS: BP 100/59
[~2020-08-27] MED LIST changes: +DICY20TA3 PO; +ONDA4TAB12 PO
--- NOTE | 2020-08-27 13:04 | PDOC ---
Progress Note - Pain Clinic Date of Service: DOS: DATE: 08/27/20 TIME: 12:58 Diagnosis: Dx: Lumbar radiculopathy with lumbar degenerative disease and lumbar spondylosis with postlaminectomy syndrome Cervical radiculopathy with cervical degenerative disc disease Bilateral knee joint pain status post total knee arthroplasties with chronic postoperative pain History or Present Illness: HPI: 50-year-old female returns for follow-up status post lumbar epidural steroids x3 with good results about 75% initially still pain in the low back now close to baseline with still about 20% improvement patient chief complaint however is left knee joint pain status post total knee arthroplasty and we had preauthorize her for a genicular nerve blocks on the left knee and she would like to proceed with that today. Patient reports worse with walking standing changing positions also when she is resting is waking her from sleep at night about every 2-3 hours with the left knee pain mostly in the medial compartment of the upper and lower part of the knee above and below the knee joint patient reports is aching and sharp shooting at times across the knee and into the back of the knee radiating constant severe can be unbearable with weightbearing standing walking patient rates is a 9 on scale 10 is worse over the past week 7 on average 6 its least is a 7 today. Patient reports no new motor or sensory deficits or other complai nts. Physical Exam: VS: Blood pressure is 130/75 pulse 87 respirations 16 temperature 98.4 F weight is 261 pounds PE: PHYSICAL EXAMINATION: GENERAL: The patient is awake, alert, oriented, appropriate, very pleasant in demeanor HEENT: Shows normocephalic, atraumatic. Extraocular movements are intact and symmetrical. NECK: Shows anterior throat supple without palpable lymphadenopathy noted. Swallow reflex symmetrical. CHEST: Shows normal on inspection. Breath sounds are clear bilaterally. HEART: Shows S1, S2 clear. ABDOMEN: Soft, nontender, nondistended, obese. No palpable organomegaly is noted. No rebound or guarding demonstrated. BACK: Shows spine grossly in the midline. Normal-appearing cervical lordotic curvature. There is slightly increased thoracic kyphosis, some minor flattening of the lumbar lordotic curvature. Well-healed surgical scarring noted in the lumbar distribution. Lumbar paraspinous muscles show symmetrical on inspection, on palpation shows some moderate tenderness diffusely throughout the upper, middle and lower distribution of the paraspinous muscles, but without specific trigger points, without radiation of pain. The patient has good rotational motion of the lumbar spine, both laterally as well as extension and flexion without significant difficulty. No tenderness over the spinous processes, sacru m or sacroiliac regions. EXTREMITIES: Lower extremities show deep tendon reflexes 2+ in the patellar and tendo calcaneus tendons. Motor exam is 4 on a scale of 5 with right dorsiflexion, extension, quadriceps and hamstring flexion and 5/5 on the left. Peripheral pulses are 1+ posterior tibial. No peripheral edema is noted bilaterally. Left knee shows well-healed surgical scar as is the right knee, with palpation the left knee shows significant tenderness the medial aspect of the superior medial collateral ligament as well as inferiorly on the medial tibia also laterally at the superior aspect of the knee and lateral collateral l igament also some mild minor tenderness over the patella and inferiorly medially as well. Patient has good hinge motion without ratcheting or crepitus noted both actively and passively with bilateral knees. SKIN: Shows warm and dry, good turgor. No edema. No sores, rashes or bruising throughout. Procedure: Procedure: Options were discussed with patient. Patient chart reviews her current medication regimen updated current review of systems updated today as well. We will proceed with a left knee genicular nerve block including the Superior lateral genicular nerve, Superior medial genicular nerve, Inferior medial genicular nerve, with fluoroscopic guidance. Risk were discussed including not limited to bleeding infection possibility of intravascular injection sequelae spread of local anesthetic numbness side effects steroid medication exposure fluoroscopy and poor results regarding pain control. Patient understands and wishes to proceed. Patient will return to clinic in approximately 3 weeks for follow-up, was counseled as return appointment activity level and side effects to be aware of. Medication Injected: Med Injected: Patient supine position under sterile prep and drape left knee was identified and using C-arm fluoroscopic guidance in both AP and lateral views using 22- gauge needle x3 for genicular block superior medial and superior lateral genicular nerves and inferior medial genicular nerve. Stylets were removed negative aspiration was confirmed and using 1 cc of contrast at each of the 3 injection sites showed good local spread without washout for all 3. At this time bupivacaine 0.25%(6cc total- 2 cc/site) and total of 80 mg Depo-Medrol. [place] were removed and sterile bandages were applied. Patient tolerated procedure well had no complications. Condition at Discharge: Condition at Discharge: Condition at discharge stable, patient alert procedure well and had no complications. GINO CACERES MD Aug 27, 2020 13:04
--- NOTE | 2020-08-27 13:05 | PDOC4 ---
PROCEDURE Procedure Patient was consented for left knee genicular nerve blocks. Risk were discussed including but not limited to bleeding infection possibility of intravascular ejection sequelae spread of local anesthetic numbness side effects of steroid medication exposure fluoroscopy and portals regarding pain control. Patient understands and wishes to proceed. Patient supine position under sterile prep and drape left knee was identified and using C-arm fluoroscopic guidance in both AP and lateral views using 22- gauge needle x3 for genicular block superior medial and superior lateral genicular nerves and inferior medial genicular nerve. Stylets were removed negative aspiration was confirmed and using 1 cc of contrast at each of the 3 injection sites showed good local spread without washout for all 3. At this time bupivacaine 0.25%(6cc total- 2 cc/site) and total of 80 mg Depo-Medrol. [place] were removed and sterile bandages were applied. Patient tolerated procedure well had no complications. GINO CACERES MD Aug 27, 2020 13:05
== END | disposition home or self-care (01) ==
LOC: PNCL 11:13
PROVIDERS: ATTEND Anesthesiology
DX: M51.16 Intervertebral disc disorders with radiculopathy, lumbar region (principal); M47.26 Other spondylosis with radiculopathy, lumbar region; M96.1 Postlaminectomy syndrome, not elsewhere classified; M50.10 Cervical disc disorder with radiculopathy, unspecified cervical region; M25.561 Pain in right knee; M25.562 Pain in left knee; G89.29 Other chronic pain; J44.9 Chronic obstructive pulmonary disease, unspecified; I10 Essential (primary) hypertension; E78.00 Pure hypercholesterolemia, unspecified; K21.9 Gastro-esophageal reflux disease without esophagitis; M19.90 Unspecified osteoarthritis, unspecified site; F41.9 Anxiety disorder, unspecified; F32.9 Major depressive disorder, single episode, unspecified; E66.9 Obesity, unspecified; Z98.51 Tubal ligation status; Z98.890 Other specified postprocedural states; Z79.899 Other long term (current) drug therapy; Z87.891 Personal history of nicotine dependence; Z79.82 Long term (current) use of aspirin; Z88.8 Allergy status to other drugs, medicaments and biological substances; Z72.89 Other problems related to lifestyle
CPT/HCPCS: 64454

== ENCOUNTER → 2020-10-29 | Outpatient (CLI) | payer MEDICAID ==
[~2020-10-29] MED LIST changes: +HYOS0.1222 PO; +IOHEXOL 180 MG/ML 10 ML VIAL. ONE; +ONDA4TAB7 PO; +methylPREDNISolone ACETATE 80 MG/ML VIAL. ONE
--- NOTE | 2020-10-29 10:48 | PDOC4 ---
Procedure Note: ICD 10 Code: ICD 10 Code: M54.12 M50.30 Procedure Note: Patient was consented for cervical epidural steroid injection with fluoroscopic guidance. Risks were discussed including but not limited to: Bleeding, infection, possibility of epidural hematoma and subsequent neurological compromise, dural puncture, headaches, spinal cord and/or nerve damage, side effects of steroid medication, and poor results regarding pain control. Patient understands and wished to proceed. Procedure cervical epidural steroid injection at the C6-7 level, using local anesthetic under sterile prep and drape using C-arm fluoroscopic guidance under local anesthesia medications injected ;120 mg Depo-Medrol +5 mL normal saline and 2 mL contrast; condition at discharge is stable patient tolerated procedure well. and had no complications GINO CACERES MD Oct 29, 2020 10:48
--- NOTE | 2020-10-29 10:48 | PDOC ---
Progress Note - Pain Clinic Date of Service: DOS: DATE: 10/29/20 TIME: 10:44 Diagnosis: Dx: Lumbar radiculopathy with lumbar degenerative disease lumbar spondylosis postlaminectomy syndrome Cervical radiculopathy with cervical degenerative disease Myofascial pain Bilateral knee joint pain with previous bilateral total knee arthroplasties History or Present Illness: HPI: 50-year-old female returns for follow-up status post genicular nerve block on the left with approximate 85% improvement initially then down about 35% impro vement overall with increased use patient reports the first few days she is walking much more comfortably more easily putting all her weight on her left leg and was feeling much better and "back to normal" patient reports the pain returned but is still significantly reduced patient's chief complaint today however is the neck and upper extremity pain as well as upper back pain patient reports is an 8 on scale 10 is worse over the past week 7 on average 7 its least is a 7 today patient report is aching sharp tight cramping with pain rating to bilateral upper extremities equally right and left shoulders and arms as well. Patient reports no loss of motor function but significant pain and fatigue with repetitive motions reaching the weightbearing lifting doing fine motor movements more with the right than the left hand but present bilaterally. Patient also reports of low back pain but this is secondary and still some knee pain as noted on the left. Patient reports no bowel or bladder incontinence. Physical Exam: VS: Blood pressure is 139/74 pulse 80 respirations are 18 temperature is 90 F height is 5 feet 4 inches weight is 232 pounds PE: PHYSICAL EXAMINATION: GENERAL: The patient is awake, alert, oriented, appropriate, very pleasant demeanor HEENT: Shows normocephalic, atraumatic. Extraocular movements are intact and symmetrical. Oral cavity: Mucous membranes moist and pink. Dentition is intact. NECK: Shows anterior throat supple without palpable lymphadenopathy noted. Swallow reflex symmetrical. CHEST: Shows normal on inspection. Breath sounds are clear bilaterally, distant but no rales or rhonchi. HEART: Shows S1, S2 clear. No murmurs auscultated. ABDOMEN: Soft, nontender, nondistended, obese. No palpable organomegaly is noted. BACK: Shows spine grossly in the midline. Normal-appearing cervical lordotic curvature. Cervical paraspinous muscles show symmetrical inspection on palpation some moderate tenderness throughout the upper middle lower distr ibution paraspinous muscles bilaterally. Patient shows good rotation of motion cervical spine both laterally greater than 45 degrees as well as full extension full forward flexion without significant limitation or pain reported. There is slightly increased thoracic kyphosis, some minor flattening of the lumbar lordotic curvature. Lumbar paraspinous muscles show symmetrical on inspection, on palpation shows some moderate tenderness diffusely throughout the upper, middle and lower distribution of the paraspinous muscles without specific trigger points, without radiation of pain. The patient has good rotational motion of the lumbar spine, both laterally as well as extension and flexion without significant difficulty. EXTREMITIES: Lower extremities show deep tendon reflexes 2+ in the patellar and tendo calcaneus tendons. Motor exam is 4 on a scale of 5 with right dorsiflexion, extension, quadriceps and hamstring flexion and 5/5 on the left. Peripheral pulses are 1+ posterior tibial. No peripheral edema is noted bilaterally. Lower extremities are warm and dry to touch, equal in color and appearance. Upper extremity show deep tendon reflexes 2+ in the bicep tricep tendons motor exam is strong with dispatcher bus and trolley strength rated 5 out of 5 as is bicep and tricep flexion and symmetrical peripheral pulses are 2+ radial no peripheral edema is noted. SKIN: Shows warm and dry, good turgor. No edema. No sores, rashes or bruising throughout. Procedure: Procedure: Options discussed with the patient. Patient chart reviews her current medication regimen updated current review of systems updated today as well. We will proceed with a cervical epidural steroid injection today with fluoroscopic guidance. Risks were discussed including but not limited to: Bleeding, infection, possibility of epidural hematoma and subsequent neurological compromise, dural puncture, headaches, spinal cord and/or nerve damage, side effects of steroid medication, and poor results regarding pain control. Patient understands and wished to proceed. Patient will return to clinic in approximate 2 weeks for follow-up, was counseled as return appointment activity level and side effects to be aware of. Medication Injected: Med Injected: Procedure cervical epidural steroid injection at the C6-7 level, using local anesthetic under sterile prep and drape using C-arm fluoroscopic guidance under local anesthesia medications injected ;120 mg Depo-Medrol +5 mL normal saline and 2 mL contrast; condition at discharge is stable patient tolerated procedure well. and had no complications Condition at Discharge: Condition at Discharge: Condition at discharge stable, patient already the procedure well and had no complications. GINO CACERES MD Oct 29, 2020 10:48
== END | disposition home or self-care (01) ==
LOC: PNCL 10:04
PROVIDERS: ATTEND Anesthesiology
DX: M50.10 Cervical disc disorder with radiculopathy, unspecified cervical region (principal); M51.16 Intervertebral disc disorders with radiculopathy, lumbar region; M47.26 Other spondylosis with radiculopathy, lumbar region; M96.1 Postlaminectomy syndrome, not elsewhere classified; M79.18 Myalgia, other site; M25.561 Pain in right knee; M25.562 Pain in left knee; Z96.653 Presence of artificial knee joint, bilateral; I10 Essential (primary) hypertension; E78.00 Pure hypercholesterolemia, unspecified; J44.9 Chronic obstructive pulmonary disease, unspecified; K21.9 Gastro-esophageal reflux disease without esophagitis; M19.90 Unspecified osteoarthritis, unspecified site; F41.9 Anxiety disorder, unspecified; F32.9 Major depressive disorder, single episode, unspecified; E66.9 Obesity, unspecified; Z87.891 Personal history of nicotine dependence; Z79.899 Other long term (current) drug therapy; Z98.890 Other specified postprocedural states; Z72.89 Other problems related to lifestyle; Z88.8 Allergy status to other drugs, medicaments and biological substances
CPT/HCPCS: 62321; J1040; Q9965

== ENCOUNTER → 2020-11-13 | Outpatient (CLI) | payer MEDICAID ==
[~2020-11-13] MED LIST changes: +BUPIVACAINE MPF 0.25% 30 ML VIAL. ONE; -IOHEXOL 180 MG/ML 10 ML VIAL. ONE
--- NOTE | 2020-11-13 10:17 | PDOC ---
Progress Note - Pain Clinic Date of Service: DOS: DATE: 11/13/20 TIME: 10:12 Diagnosis: Dx: Lumbar radiculopathy with lumbar degenerative disease and lumbar spondylosis with lumbar postlaminectomy syndrome Cervical radiculopathy with cervical degenerative disc disease Myofascial pain Bilateral knee joint pain status post bilateral total knee arthroplasties History or Present Illness: HPI: 50-year-old female returns for follow-up status post cervical epidural steroid injection October 29, 2020 patient reports she did very well about 75% improvement after the injection but the pain now is new in the mid upper back also the bilateral posterior shoulder as well as the lower back patient reports is becoming significant she is having significant pain to the point of tears today rated as a 10 on scale 10 is worse over the past week 9 on average 9 its least is a 10 today patient reports aching sharp tight burning radiating constant severe unbearable in between the shoulders as well as into the base of the neck into the upper aspect of the lower back. Patient reports no motor or sensory deficits no bowel or bladder incontinence. Patient reports that she is having significant pain in her left knee as well and responded well to a genicular block in the past. Patient reports she is scheduled for intrathecal pump placement in approximately 1 week. Physical Exam: VS: Blood pressure is 144/80 pulse 78 respirations 18 temperature 30 Fahrenheit height is 5 foot 4 inches weight is 224 pounds PE: PHYSICAL EXAMINATION: GENERAL: The patient is awake, alert, oriented, appropriate, very pleasant in demeanor, patient in tears secondary to pain. HEENT: Shows normocephalic, atraumatic. Extraocular movements are intact and symmetrical. Oral cavity: Mucous membranes moist and pink. Dentition is intact. NECK: Shows anterior throat supple without palpable lymphadenopathy noted. Swallow reflex symmetrical. CHEST: Shows normal on inspection. Breath sounds are clear bilaterally, distant no rales rhonchi wheezes auscultated. HEART: Shows S1, S2 clear. No murmurs auscultated. ABDOMEN: Soft, nontender, nondistended. No palpable organomegaly is noted. No rebound or guarding demonstrated. BACK: Shows spine grossly in the midline. Normal-appearing cervical lordotic curvature. There is slightly increased thoracic kyphosis, some minor flattening of the lumbar lordotic curvature. Lumbar paraspinous muscles show symmetrical on inspection, on palpation shows some moderate tenderness diffusely throughout the upper, middle and lower distribution of the paraspinous muscles, with significant tenderness very ropelike musculature in the inferior cervical paraspinous posterior thoracic paraspinous muscular, rhomboid musculature bilaterally left greater than right and upper lumbar paraspinous posture again left greater than right with very firm ropelike muscular consistent with trigger point areas of muscle without radiation but very tender very firm areas of musculature with palpation. The patient has good rotational motion of the lumbar spine, both laterally as well as extension and flexion without significant difficulty. No tenderness over the spinous processes, sacrum or sacroiliac regions. EXTREMITIES: Lower extremities show deep tendon reflexes 2+ in the patellar and tendo calcaneus tendons. Motor exam is 5 on a scale of 5 with right dorsiflexion, extension, quadriceps and hamstring flexion and 5/5 on the left. Peripheral pulses are 1 posterior tibial. No peripheral edema is noted bilaterally. Lower extremities are warm and dry to touch, equal in color and appearance. Upper extremity show deep tendon reflexes 2+ in the bicep tricep tendons motor exam positive for scale 5 with right graining press operator strength bicep tricep flexion 5 out of 5 on the left. SKIN: Shows warm and dry, good turgor. No edema. No sores, rashes or bruising throughout. Procedure: Procedure: Options were discussed with the patient. Patient's old chart reviews her current medication regimen updated current review of systems updated today as well. We will proceed with trigger point injections of the bilateral cervical paraspinous muscular bilateral trapezius musculature bilateral rhomboid musculature bilateral thoracic paraspinous posture and bilateral upper lumbar p araspinous muscles. Risk discussed including but not limited to bleeding infection possible intravascular injection sequelae pneumothorax side effects steroid medications, and poor results regarding pain control. Patient understands wishes to proceed. Patient return to clinic in approximately 1 week for follow-up, was counseled as to return appointment, activity level, and side effects to be aware of. Medication Injected: Med Injected: Patient in sitting position and under sterile prep and drape, trigger points within the cervical paraspinous posture thoracic paraspinous muscular trapezius musculature bilaterally lumbar and thoracic paraspinous muscle bilaterally trigger points were identified and injected using 25-gauge needle after negative aspiration each injection site total of 10 cc 0.25 significant total of 80 mg Depo-Medrol. Patient tolerated procedure well and had no complications. Condition at Discharge: Condition at Discharge: Condition at discharge is stable, patient however the procedure well and had no complications. GINO CACERES MD Nov 13, 2020 10:17
--- NOTE | 2020-11-13 10:18 | PDOC4 ---
Procedure Note: ICD 10 Code: ICD 10 Code: M60.89 Procedure Note: Patient was consented for trigger point injections. Risk were discussed including but not limited to bleeding infection possibility of intravascular injection sequelae spread of local anesthetic and numbness pneumothorax side effects of steroid medication portals rating pain control. Patient understands wishes to proceed. Patient in sitting position and under sterile prep and drape, trigger points within the cervical paraspinous posture thoracic paraspinous muscular trapezius musculature bilaterally lumbar and thoracic paraspinous muscle bilaterally trigger points were identified and injected using 25-gauge needle after negative aspiration each injection site total of 10 cc 0.25 significant total of 80 mg Depo-Medrol. Patient tolerated procedure well and had no complications. GINO CACERES MD Nov 13, 2020 10:18
== END | disposition home or self-care (01) ==
LOC: PNCL 08:54
PROVIDERS: ATTEND Anesthesiology
DX: M79.18 Myalgia, other site (principal); M51.16 Intervertebral disc disorders with radiculopathy, lumbar region; M47.26 Other spondylosis with radiculopathy, lumbar region; M96.1 Postlaminectomy syndrome, not elsewhere classified; M50.10 Cervical disc disorder with radiculopathy, unspecified cervical region; M25.561 Pain in right knee; M25.562 Pain in left knee; I10 Essential (primary) hypertension; E78.00 Pure hypercholesterolemia, unspecified; J44.9 Chronic obstructive pulmonary disease, unspecified; E66.9 Obesity, unspecified; K21.9 Gastro-esophageal reflux disease without esophagitis; M19.90 Unspecified osteoarthritis, unspecified site; F41.9 Anxiety disorder, unspecified; F32.9 Major depressive disorder, single episode, unspecified; Z96.653 Presence of artificial knee joint, bilateral; Z87.891 Personal history of nicotine dependence; Z79.899 Other long term (current) drug therapy; Z98.890 Other specified postprocedural states; Z98.51 Tubal ligation status; Z72.89 Other problems related to lifestyle; Z88.8 Allergy status to other drugs, medicaments and biological substances; Z82.49 Family history of ischemic heart disease and other diseases of the circulatory system
CPT/HCPCS: 20553; J1040; J3490

== ENCOUNTER → 2020-11-18 | Outpatient (CLI) | payer MEDICAID ==
[~2020-11-18] MED LIST changes: +BUPIVACAINE MPF 0.25% 10 ML VIAL. ONE; -BUPIVACAINE MPF 0.25% 30 ML VIAL. ONE; +IOHEXOL 180 MG/ML 10 ML VIAL. ONE
--- NOTE | 2020-11-18 14:35 | PDOC ---
Progress Note - Pain Clinic Date of Service: DOS: DATE: 11/18/20 TIME: 14:31 Diagnosis: Dx: Lumbar radiculopathy lumbar degenerative disease lumbar spondylosis with lumbar postlaminectomy syndrome Cervical radiculopathy with cervical degenerative disc disease Myofascial pain Bilateral knee joint pain with status post bilateral total knee arthroplasties and chronic postoperative pain History or Present Illness: HPI: 50-year-old female returns for follow-up status post trigger point injections November patient did very well reports about 50% improvement in the base the neck and shoulders upper neck as well as the mid low back patient reports h er chief complaint today however is the left knee pain she responded very well to a left genicular block that we did in August patient reports significant pain with walking and standing on the left knee putting a lot of weight on such as climbing a stair or step which she has been trying to avoid secondary to the pain. Patient reports is an 8 on scale 10 is worse over the past week 7 on average 6 its least and is a 7 today. Patient reports no loss of motor function with significant pain with walking standing described as aching sharp shooting in the knee itself. Patient reports no new bowel or bladder incontinence. Physical Exam: VS: Blood pressure is 130/75 pulse 67 respirations 18 temperature is 98.5 F height 5 feet 4 inches weight is 222 pounds PE: PHYSICAL EXAMINATION: GENERAL: The patient is awake, alert, oriented, appropriate, very pleasant in demeanor HEENT: Shows normocephalic, atraumatic. Extraocular movements are intact and symmetrical. Oral cavity: Mucous membranes moist and pink. Dentition is intact. NECK: Shows anterior throat supple without palpable lymphadenopathy noted. Swallow reflex symmetrical. CHEST: Shows normal on inspection. Breath sounds are clear bilaterally, distant no rales rhonchi or wheezes auscultated. HEART: Shows S1, S2 clear. No murmurs auscultated. ABDOMEN: Soft, nontender, nondistended, obese. No palpable organomegaly is noted. BACK: Shows spine grossly in the midline. Normal-appearing cervical lordotic curvature. There is slightly increased thoracic kyphosis, some minor flattening of the lumbar lordotic curvature. Lumbar paraspinous muscles show symmetrical on inspection, on palpation shows some moderate tenderness diffusely throughout the upper, middle and lower distribution of the paraspinous muscles, but without specific trigger points, without radiation of pain. The patient has good rotational motion of the lumbar spine, both laterally as well as extension and flexion without significant difficulty. EXTREMITIES: Lower extremities show deep tendon reflexes 2+ in the patellar and tendo calcaneus tendons. Motor exam is 5 on a scale of 5 with right dorsiflexion, extension, quadriceps and hamstring flexion and 5/5 on the left. Peripheral pulses are 1+ posterior tibial. No peripheral edema is noted bilaterally. Lower extremities are warm and dry to touch, equal in color and appearance. Well-healed surgical scar is noted to both the anterior knees. Left knee shows significant tenderness with palpation of the lateral collateral ligament as well as the medial but with good range of motion without obvious ratcheting or crepitus. SKIN: Shows warm and dry, good turgor. No edema. No sores, rashes or bruising throughout. Procedure: Procedure: Options discussed with the patient. Patient chart reviews her current medication regimen updated current review of systems updated today as well. We will proceed with a left genicular block with fluoroscopic guidance today. Risk were discussed including but not limited to bleeding infection possibility of intravascular injection sequelae spread local anesthetic numbness side effects steroid medications post arthroscopy and portals regarding pain control. Patient understands wished to proceed. Patient return to clinic in approximately 2 weeks for follow-up, was counseled as to return appointment, development, and side effects to be aware of. Medication Injected: Med Injected: Patient supine position under sterile prep and drape left knee was identified and using C-arm fluoroscopic guidance in both AP and lateral views using 22- gauge needle x3 for genicular block superior medial and superior lateral genicular nerves and inferior medial genicular nerve. Stylets were removed negative aspiration was confirmed and using 1 cc of contrast at each of the 3 injection sites showed good local spread without washout for all 3. At this time bupivacaine 0.25%(6cc total- 2 cc/site) and total of 80 mg Depo-Medrol. [place] were removed and sterile bandages were applied. Patient tolerated procedure well had no complications. Condition at Discharge: Condition at Discharge: Condition at discharge stable, patient tolerated the procedure well and had no complications. GINO CACERES MD Nov 18, 2020 14:35
--- NOTE | 2020-11-18 14:36 | PDOC4 ---
Procedure Note: ICD 10 Code: ICD 10 Code: M2 5.562 G8 9.18 Procedure Note: Patient was consented for left genicular block with fluoroscopic guidance. Risk were discussed including but not limited to bleeding infection possibility of intravascular injection sequelae spread local anesthetic numbness side effects steroid medication and poor results regarding pain control. Patient understands wishes to proceed. Patient supine position under sterile prep and drape left knee was identified and using C-arm fluoroscopic guidance in both AP and lateral views using 22- gauge needle x3 for genicular block superior medial and superior lateral genicular nerves and inferior medial genicular nerve. Stylets were removed negative aspiration was confirmed and using 1 cc of contrast at each of the 3 injection sites showed good local spread without washout for all 3. At this time bupivacaine 0.25%(6cc total- 2 cc/site) and total of 80 mg Depo-Medrol. [place] were removed and sterile bandages were applied. Patient tolerated procedure well had no complications. GINO CACERES MD Nov 18, 2020 14:36
== END | disposition home or self-care (01) ==
LOC: PNCL 13:34
PROVIDERS: ATTEND Anesthesiology
DX: M25.562 Pain in left knee (principal); M25.561 Pain in right knee; G89.18 Other acute postprocedural pain; M51.16 Intervertebral disc disorders with radiculopathy, lumbar region; M47.26 Other spondylosis with radiculopathy, lumbar region; M96.1 Postlaminectomy syndrome, not elsewhere classified; M50.10 Cervical disc disorder with radiculopathy, unspecified cervical region; M79.18 Myalgia, other site; I10 Essential (primary) hypertension; E78.00 Pure hypercholesterolemia, unspecified; J44.9 Chronic obstructive pulmonary disease, unspecified; E66.9 Obesity, unspecified; K21.9 Gastro-esophageal reflux disease without esophagitis; M19.90 Unspecified osteoarthritis, unspecified site; F41.9 Anxiety disorder, unspecified; F32.9 Major depressive disorder, single episode, unspecified; Z96.653 Presence of artificial knee joint, bilateral; Z79.899 Other long term (current) drug therapy; Z87.891 Personal history of nicotine dependence; Z98.51 Tubal ligation status; Z98.890 Other specified postprocedural states; Z82.49 Family history of ischemic heart disease and other diseases of the circulatory system; Z88.8 Allergy status to other drugs, medicaments and biological substances
CPT/HCPCS: 64454; J1040; J3490; Q9965

== ENCOUNTER 2021-01-18 12:50 | Emergency (ER) | payer MEDICAID ==
[~2021-01-18] VITALS: Ht 165.1 cm; Wt 91.8 kg
[~2021-01-18 12:50] MED LIST changes: -BUPIVACAINE MPF 0.25% 10 ML VIAL. ONE; +DICY20TA PO; -DICY20TA3 PO; -DIPH50CA PO; +DIPH50CA16 PO; -IOHEXOL 180 MG/ML 10 ML VIAL. ONE; -methylPREDNISolone ACETATE 80 MG/ML VIAL. ONE
[2021-01-18 13:08] VITALS: BP 135/83
[2021-01-18 13:33] LABS: BILIRUBIN,URINE SMALL (NEG); CLARITY,URINE CLOUDY; COLOR,URINE AMBER
[2021-01-18 13:34] LABS: NITRITE,URINE NEGATIVE (NEG); PROTEIN,URINE 30 mg/dL (NEG-TRACE)
[2021-01-18 13:36] LABS: BACTERIA,URINE MODERATE /HPF (0-FEW)
[2021-01-18] MEDS ORDERED: CEPH500C PO (14:36)
[2021-01-18] MEDS ORDERED: DOXY100C3 PO (14:36)
--- NOTE | 2021-01-18 14:39 | PHYS DOC ---
Past Medical History Past Medical History: Anxiety, Asthma, COPD, GERD, Hypertension Additional Past Medical Histor: HX HEP C., PTSD Past Surgical History: Knee Replacement, Other Additional Past Surgical Histo: BACK SX., bariatric sx, R hand sx Smoking Status: Former Smoker Alcohol Use: None General Adult EDM: Chief Complaint: PAIN ON URINATION HPI: HPI: 50 yo F PMH asthma with history of asthma and COPD, presents the ED with complaints of dysuria and increased urinary frequency for the past 2 days, has taken 2 doses of denies of phenazopyridium. Reports 1 new male sexual partner (her , twice this past month), no protection. Is worried her may be sleeping around and "wants to get checked." It has been a "years" since her last menstrual period. Was supposed to have back surgery on Tuesday at with Dr. Michaels-this was canceled due to patient's urinary symptoms. Review of Systems: Review of Systems: Constitutional: Denies fever or chills. [] Eyes: Denies change in visual acuity. [] HENT: Denies nasal congestion or sore throat. [] Respiratory: Denies cough or shortness of breath. [] Cardiovascular: Denies chest pain or edema. [] GI: Denies abdominal pain, nausea, vomiting, bloody stools or diarrhea. [] : Denies vaginal bleeding or dyspareunia Musculoskeletal: Denies back pain or joint pain. [] Integument: Denies rash or diaphoresis Neurologic: Denies headache, focal weakness or sensory changes. [] Endocrine: Denies polyuria or polydipsia. [] Lymphatic: Denies swollen glands. [] Psychiatric: Denies depression or anxiety. [] Heart Score: C/O Chest Pain: No Risk Factors: Risk Factors: DM, Current or recent (<one month) smoker, HTN, HLP, family history of CAD, obesity. Risk Scores: Score 0 - 3: 2.5% MACE over next 6 weeks - Discharge Home Score 4 - 6: 20.3% MACE over next 6 weeks - Admit for Clinical Observation Score 7 - 10: 72.7% MACE over next 6 weeks - Early Invasive Strategies Allergies: Allergies: Allergies Coded Allergies Type Severity Reaction Last Updated Verified aspirin Allergy Severe Anaphylaxis 01/15/20 Yes ibuprofen Allergy Severe Anaphylaxis 01/15/20 Yes cyclobenzaprine Adverse Reaction Mild 01/15/20 Yes Physical Exam: PE: Constitutional: Well developed, well nourished, no acute distress, non-toxic appearance. HENT: Normocephalic, atraumatic, Eyes: EOMI, conjunctiva normal, no discharge. Neck: Normal range of motion, supple, Cardiovascular: S1/2 present, regular rhythm Lungs & Thorax: Speaking in full sentences, bilateral equal chest rise, no tachypnea or increased work of breathing Abdomen: soft, no tenderness, Skin: Warm, dry, no erythema, no rash. [] Back: No tenderness, no CVA tenderness. [] Extremities: No tenderness, no cyanosis, no lower extremity edema Neurologic: Alert and oriented X 3, normal motor function, normal sensory function, no focal deficits noted. [] Psychologic: Affect normal, judgement normal, mood normal. [] Current Patient Data: Labs: Laboratory Tests Test 01/18/21 12:58 Urine Collection Type Unknown Urine Color Stephanie Urine Clarity Cloudy Urine pH 6.0 (<5.0-8.0) Urine Specific [place] >=1.030 (1.000-1.030) Urine Protein 30 mg/dL (NEG-TRACE) Urine Glucose (UA) Negative mg/dL (NEG) Urine Ketones (Stick) Negative mg/dL (NEG) Urine Blood Small (NEG) Urine Nitrite Negative (NEG) Urine Bilirubin Small (NEG) Urine Urobilinogen Dipstick 2.0 mg/dL (0.2 mg/dL) Urine Leukocyte Esterase Small (NEG) Urine RBC 3-5 /HPF (0-2) Urine WBC 11-20 /HPF (0-4) Urine Squamous Epithelial Cells Many /LPF Urine Bacteria Moderate /HPF (0-FEW) Urine Mucus Mod /LPF Microbiology 01/18/21 Wet Prep - Final, Complete Vital Signs: Vital Signs Date Time Temp Pulse Resp B/P (MAP) Pulse Ox O2 Delivery O2 Flow Rate FiO2 01/18/21 13:08 97.9 80 16 135/83 (100) 96 Room Air 97.9 EKG: EKG: [] Radiology/Procedures: Radiology/Procedures: [] Course & Med Decision Making: Course & Med Decision Making Pertinent Labs and Imaging studies reviewed. (See chart for details) Concern for urinary tract infection in a well-appearing, hemodynamically stable patient. Will discharge home with strict ED return precautions were given for pain, fever, intractable nausea or vomiting or dehydration. Encouraged urgent outpatient follow-up with PMD for follow-up. Life-threatening processes were considered but are low suspicion at this time, given history, physical exam and ED workup. Pt was educated on all prescription medications and adverse effects. All patient's questions were answered and pt was stable at time of discharge. Life/limb-threatening differential includes but is not limited to, trauma, infection, nephrolithiasis, kidney disease, malignancy, obstructive uropathy, BPH, AAA/AVF/aortic dissection, or schistosomiasis. I have spoken with the patient and/or caregivers. I explained the patient's condition, diagnoses and treatment plan based on the information available to me at this time. I have answered the patient and/or caregiver's questions and addressed any concerns. The patient and/or caregivers have a good understanding of patient's diagnosis, condition and treatment plan as can be expected at this point. Vital signs have been stable. Patient's condition is stable and appropriate for discharge from the emergency department. Patient will pursue further outpatient evaluation with primary care physician or other designated or consulting physician as outlined in the discharge instr uctions. The patient and/or caregivers are agreeable to this plan of care and follow-up instructions have been explained in detail. The patient and/or caregivers have received these instructions in written form and have expressed an understanding of the discharge instructions. The patient and/or caregivers are aware that any significant change of condition or worsening of symptoms should prompt immediate return to this or the closest emergency department or call to 911. Chaparrita Disclaimer: Chaparrita Disclaimer: This electronic medical record was generated, in whole or in part, using a voice recognition dictation system. Departure Departure Impression: Primary Impression: UTI (urinary tract infection) Additional Impression: Encounter for assessment of sexually transmitted disease exposure Disposition: HOME / SELF CARE / HOMELESS Condition: STABLE Referrals: NON,STAFF (PCP) Follow-up with your primary care physician in 24 to 48 hours OR FOLLOW UP WITH FAMILY MEDICINE: [address] [facility] [address] [place] [address] Patient Instructions: Sexually Transmitted Disease, Urinary Tract Infection Additional Instructions: [facility] STI testing-call for appointment [address] [id number] EMERGENCY DEPARTMENT GENERAL DISCHARGE INSTRUCTIONS Thank you for coming to [facility] Emergency Department (ED) today and trusting us with you care. We trust that you had a positive experience in our Emergency Department. If you wish to speak to the department management, you may call the Director at [phone]. YOUR FOLLOW UP INSTRUCTIONS ARE FOLLOWS: 1. Do you have a private Doctor? If you do not have a private doctor, please ask for a resource list of physicians or clinics that may be able to assist you with follow up care. 2. The Emergency Physicain has interpreted your x-rays. The X-Ray specialist will also review them. If there is a change in the findings, you will be notified in 48 hours when at all possible. 3. A lab test or culture has been done, your results will be reviewed and you will be notified if you need a change in treatment. ADDITIONAL INSTRUCTIONS AND INFORMATION: 1. Your care today has been supervised by a physician who is specially trained in emergency care. Many problems require more than one evaluation for a complete diagnosis and treatment. We recommend that you schedule your follow up appointment as recommended to ensure complete treatment of you illness or injury. If you are unable to obtain follow up care and continue to have a problem, or if your condition worsens, we recommend that you return to the ED. 2. We are not able to safely determine your condition over the phone nor are we able to give sound medical advice over the phone. For these safety reasons, if you call for medical advice we will ask you to come to the ED for further evaluation. 3. If you have any questions regarding these discharge instructions please call the ED at [phone]. SAFETY INFORMATION: In the interest of safety, wellness, and injury prevention; we encourage you to wear your sealbelt, if you smoke; quite smoking, and we encourage family to use a protec tive helmet for bicycling and other sporting events that present an increased risk for head injury. IF YOUR SYMPTOMS WORSEN OR NEW SYMPTOMS DEVELOP, OR YOU HAVE CONCERNS ABOUT YOUR CONDITION; OR IF YOUR CONDITION WORSENS WHILE YOU ARE WAITING FOR YOUR FOLLOW UP APPOINTMENT; EITHER CONTACT YOUR PRIMARY CARE DOCTOR, THE PHYSICIAN WHOSE NAME AND NUMBER YOU WERE GIVEN, OR RETURN TO THE ED IMMEDIATELY. Scripts Cephalexin (KEFLEX) 500 Mg Capsule 1 CAP PO BID for 7 Days, #14 CAP Prov: JULIAN MCDANIEL DO 01/18/21 Doxycycline Hyclate (DOXYCYCLINE HYCLATE) 100 Mg Capsule 1 CAP PO BID for 7 Days, #14 CAP Prov: JULIAN MCDANIEL DO 01/18/21 JULIAN MCDANIEL DO Jan 18, 2021 14:39
[2021-01-18] MEDS ORDERED: cefTRIAXone IM 500 MG VIAL. IM ONE (14:45)
[2021-01-20 17:14] LABS: GC PROBE Negative (Negative)
== END 2021-01-18 14:53 | disposition home or self-care (01) ==
LOC: ER 12:50
DX: N39.0 Urinary tract infection, site not specified (principal); J44.9 Chronic obstructive pulmonary disease, unspecified; K21.9 Gastro-esophageal reflux disease without esophagitis; I10 Essential (primary) hypertension; F43.10 Post-traumatic stress disorder, unspecified; Z87.891 Personal history of nicotine dependence; Z88.6 Allergy status to analgesic agent; Z88.8 Allergy status to other drugs, medicaments and biological substances
CPT/HCPCS: 81001; 87077; 87086; 87186; 87491; 87591; 99283; Q0111